=== PATIENT | female | born 1945 | race Caucasian/White ===

== ENCOUNTER → 2023-06-06 06:43 | Day surgery (SDC) | payer MEDICARE, BC, SELFPAY | LOC: GI 06:43 | PROVIDERS: ATTENDING PHYSICIAN Specialist | DX: Z12.11 Encounter for screening for malignant neoplasm of colon (principal); K57.30 Diverticulosis of large intestine without perforation or abscess without bleeding; K62.1 Rectal polyp; Z86.010 Personal history of colon polyps | CPT/HCPCS: 45380; 88305 ==

== ENCOUNTER → 2023-08-05 08:35 | Outpatient (REF) | payer MEDICARE, BC, SELFPAY ==
[2023-08-05 10:05] LABS: % Basophils 0.5 % (0-2); % Eosinophils 2.4 % (0-6); % Lymphocytes 27.1 % (20.5-51.1); % Monocytes 6.1 % (1.7-9.3); % Neutrophils 62.9 % (42.2-75.2); Absolute Eosinophils 0.2 10^3/uL (0-0.7); Absolute Immature Granulocytes 0.1 10^3/uL (0-0.05); Absolute Lymphocytes 2.2 10^3/uL (1.2-3.4); Absolute Monocytes 0.5 10^3/uL (0.1-0.6); Hematocrit 43.5 % (37.0-47.0); Hemoglobin 15.1 g/dL (12.0-16.0); Mean Corp Hgb Conc. 34.7 g/dL (33.0-37.0); Mean Corpuscular Hgb 30.1 pg (27.0-31.0); Mean Corpuscular Volume 86.8 fL (81.0-99.0); Mean Platelet Volume 10.2 fL (7.4-10.4); Nucleated Red Blood Cells % 0 %; Platelet Count 136 10^3/uL (130-400); Red Blood Cell Count 5.01 10^6/uL (4.20-5.40); White Blood Cell Count 7.9 10^3/uL (4.8-10.8)
[2023-08-05 10:13] LABS: INR 1.04; PT 13.4 Sec (11.4-14.6)
[2023-08-05 10:14] LABS: APTT 27.8 Sec (23.4-35.0)
[2023-08-05 11:37] LABS: Glycohemoglobin (HgbA1c) 5.6 % (4.0-5.6)
[2023-08-05 12:11] LABS: ALT (SGPT) 22 U/L (0-35); AST (SGOT) 24 U/L (14-36); Albumin 4.6 g/dl (3.5-5.0); Alkaline Phosphatase 68 U/L (38-126); Blood Urea Nitrogen 20 mg/dl (7-17); Calcium 9.5 mg/dl (8.4-10.2); Chloride 98 mmol/L (98-107); Glucose 85 mg/dl (70-99); HDL Cholesterol 77 mg/dl; LDL Cholesterol, Calculated 45 mg/dl; Potassium 4.1 mmol/L (3.5-5.1); Sodium 137 mmol/L (135-145); Total Bilirubin 0.9 mg/dl (0.2-1.3); Total Cholesterol 144 mg/dl (50-199); Total Protein 6.9 g/dl (6.3-8.2); Triglyceride 111 mg/dl (10-149); Very Low Density Lipoprotein 22 mg/dl (0-30); eGFR > 60.00
[2023-08-05 12:21] LABS: Carbon Dioxide 29 mmol/L (22-30)
== END ==
LOC: REG 08:35
PROVIDERS: ATTENDING PHYSICIAN Family Medicine
DX: R73.03 Prediabetes (principal); R23.3 Spontaneous ecchymoses; E78.2 Mixed hyperlipidemia
CPT/HCPCS: 36415; 80053; 80061; 83036; 84443; 85025; 85610; 85730

== ENCOUNTER → 2023-09-09 10:03 | Outpatient (REF) | payer MEDICARE, BC, SELFPAY ==
[2023-09-09 11:55] LABS: HDL Cholesterol 75 mg/dl; LDL Cholesterol, Calculated 46 mg/dl; Total Cholesterol 138 mg/dl (50-199); Triglyceride 88 mg/dl (10-149); Very Low Density Lipoprotein 17 mg/dl (0-30)
== END ==
LOC: REG 10:03
PROVIDERS: ATTENDING PHYSICIAN Internal Medicine Cardiovascular Disease
DX: E78.2 Mixed hyperlipidemia (principal); I10 Essential (primary) hypertension
CPT/HCPCS: 36415; 80061

== ENCOUNTER → 2023-09-20 09:14 | Outpatient (REF) | payer MEDICARE, BC, SELFPAY ==
[2023-09-20 10:01] LABS: % Basophils 0.4 % (0-2); % Eosinophils 1.8 % (0-6); % Immature Granulocytes 0.7 % (0-0.5); % Lymphocytes 20.6 % (20.5-51.1); % Monocytes 5.5 % (1.7-9.3); Absolute Eosinophils 0.1 10^3/uL (0-0.7); Absolute Immature Granulocytes 0.1 10^3/uL (0-0.05); Absolute Lymphocytes 1.6 10^3/uL (1.2-3.4); Absolute Monocytes 0.4 10^3/uL (0.1-0.6); Absolute Neutrophils 5.4 10^3/uL (1.4-6.5); Hematocrit 40.6 % (37.0-47.0); Hemoglobin 14.3 g/dL (12.0-16.0); Mean Corp Hgb Conc. 35.2 g/dL (33.0-37.0); Mean Corpuscular Hgb 29.9 pg (27.0-31.0); Mean Corpuscular Volume 84.8 fL (81.0-99.0); Mean Platelet Volume 9.7 fL (7.4-10.4); Nucleated Red Blood Cells % 0 %; Platelet Count 133 10^3/uL (130-400); Red Blood Cell Count 4.79 10^6/uL (4.20-5.40); Red Cell Dist. Width 11.9 % (11.5-14.5); White Blood Cell Count 7.7 10^3/uL (4.8-10.8)
[2023-09-20 10:38] LABS: ALT (SGPT) 24 U/L (0-35); AST (SGOT) 26 U/L (14-36); Albumin 4.4 g/dl (3.5-5.0); Alkaline Phosphatase 60 U/L (38-126); Blood Urea Nitrogen 18 mg/dl (7-17); Calcium 9.3 mg/dl (8.4-10.2); Carbon Dioxide 33 mmol/L (22-30); Chloride 102 mmol/L (98-107); Direct Bilirubin 0.3 mg/dl (0.0-0.4); Glucose 91 mg/dl (70-99); Iron 100 ug/dl (37-170); Potassium 4.6 mmol/L (3.5-5.1); Sodium 139 mmol/L (135-145); Total Bilirubin 0.7 mg/dl (0.2-1.3); Total Protein 6.7 g/dl (6.3-8.2); eGFR > 60.00
[2023-09-20 10:47] LABS: Percent Saturation 32 % (20-50); Total Iron Binding Capacity 304 ug/dl (265-497)
[2023-09-20 10:59] LABS: TSH Reflex To Free T4 1.09 uIU/ml (0.47-4.68)
== END ==
LOC: REG 09:14
PROVIDERS: ATTENDING PHYSICIAN Physician Assistant Medical; FAMILY PHYSICIAN Family Medicine
DX: L29.8 Other pruritus (principal); I10 Essential (primary) hypertension
CPT/HCPCS: 36415; 80053; 82248; 83540; 83550; 84443; 85025

== ENCOUNTER → 2023-11-18 08:31 | Outpatient (REF) | payer MEDICARE, BC, SELFPAY ==
[2023-11-18 11:43] LABS: % Basophils 0.5 % (0-2); % Eosinophils 1.4 % (0-6); % Immature Granulocytes 1.3 % (0-0.5); % Lymphocytes 21.9 % (20.5-51.1); % Monocytes 5.9 % (1.7-9.3); Absolute Eosinophils 0.1 10^3/uL (0-0.7); Absolute Immature Granulocytes 0.1 10^3/uL (0-0.05); Absolute Lymphocytes 1.7 10^3/uL (1.2-3.4); Absolute Monocytes 0.5 10^3/uL (0.1-0.6); Absolute Neutrophils 5.5 10^3/uL (1.4-6.5); Hemoglobin 14.7 g/dL (12.0-16.0); Mean Corpuscular Hgb 29.8 pg (27.0-31.0); Mean Corpuscular Volume 85.2 fL (81.0-99.0); Mean Platelet Volume 10.4 fL (7.4-10.4); Nucleated Red Blood Cells % 0 %; Platelet Count 128 10^3/uL (130-400); Red Blood Cell Count 4.93 10^6/uL (4.20-5.40); Red Cell Dist. Width 11.9 % (11.5-14.5)
== END ==
LOC: REG 08:31
PROVIDERS: ATTENDING PHYSICIAN Internal Medicine Hematology & Oncology; FAMILY PHYSICIAN Nurse Practitioner
DX: R23.3 Spontaneous ecchymoses (principal); R79.9 Abnormal finding of blood chemistry, unspecified; D68.69 Other thrombophilia; D68.00 Von Willebrand disease, unspecified
CPT/HCPCS: 36415; 85025; 85240; 85245; 85246; 85247

== ENCOUNTER → 2023-11-21 09:07 | Outpatient (REF) | payer MEDICARE, BC, SELFPAY | LOC: HWRAD 09:07 | PROVIDERS: ATTENDING PHYSICIAN Internal Medicine Hematology & Oncology; FAMILY PHYSICIAN Nurse Practitioner | DX: R23.3 Spontaneous ecchymoses (principal) | CPT/HCPCS: 76700 ==

== ENCOUNTER → 2023-11-26 17:48 | Outpatient (REF) | payer MEDICARE, BC, SELFPAY | LOC: CLAB 17:48 | PROVIDERS: ATTENDING PHYSICIAN Urology | DX: N39.0 Urinary tract infection, site not specified (principal) | CPT/HCPCS: 87086 ==

== ENCOUNTER → 2023-12-19 08:46 | Outpatient (REF) | payer MEDICARE, BC, SELFPAY ==
[2023-12-19 09:27] LABS: % Basophils 0.5 % (0-2); % Eosinophils 1.9 % (0-6); % Immature Granulocytes 1.6 % (0-0.5); % Lymphocytes 21.9 % (20.5-51.1); % Monocytes 5.2 % (1.7-9.3); % Neutrophils 68.9 % (42.2-75.2); Absolute Eosinophils 0.2 10^3/uL (0-0.7); Absolute Immature Granulocytes 0.1 10^3/uL (0-0.05); Absolute Lymphocytes 1.9 10^3/uL (1.2-3.4); Absolute Monocytes 0.4 10^3/uL (0.1-0.6); Absolute Neutrophils 5.9 10^3/uL (1.4-6.5); Hemoglobin 14.7 g/dL (12.0-16.0); Mean Corpuscular Hgb 29.9 pg (27.0-31.0); Mean Corpuscular Volume 85.5 fL (81.0-99.0); Mean Platelet Volume 9.8 fL (7.4-10.4); Nucleated Red Blood Cells % 0 %; Platelet Count 148 10^3/uL (130-400); Red Blood Cell Count 4.91 10^6/uL (4.20-5.40); Red Cell Dist. Width 12.2 % (11.5-14.5); White Blood Cell Count 8.5 10^3/uL (4.8-10.8)
[2023-12-19 09:30] LABS: Erythrocyte Sed Rate 9 mm/hour (0-20)
[2023-12-19 10:00] LABS: ALT (SGPT) 21 U/L (0-35); AST (SGOT) 23 U/L (14-36); Albumin 4.5 g/dl (3.5-5.0); Alkaline Phosphatase 67 U/L (38-126); Blood Urea Nitrogen 15 mg/dl (7-17); Calcium 9.7 mg/dl (8.4-10.2); Carbon Dioxide 31 mmol/L (22-30); Chloride 101 mmol/L (98-107); Glucose 100 mg/dl (70-99); Potassium 4.1 mmol/L (3.5-5.1); Sodium 141 mmol/L (135-145); Total Bilirubin 0.8 mg/dl (0.2-1.3); Total Protein 6.7 g/dl (6.3-8.2); eGFR > 60.00
[2023-12-19 10:02] LABS: C-Reactive Protein < 5.00 mg/L (0.0-10.00)
[2023-12-21 00:41] LABS: Complement Act., Total (CH50) 90.9 U/mL (38.7-89.9)
[2023-12-21 08:23] LABS: 24 Hour Urine Total Volume Random mL; Urine Collection Length Random hr; Urine Free Kappa Light Chains 5.96 mg/L (0.00-32.90); Urine Free Lambda Light Chains 1.11 mg/L (0.00-3.79)
[2023-12-21 23:39] LABS: Complement C3 119 mg/dl (88-165)
[2023-12-22 00:13] LABS: Albumin 4.34 g/dL (3.75-5.01); Alpha 1 Globulin 0.29 g/dL (0.19-0.46); Alpha 2 Globulin 0.69 g/dL (0.48-1.05); Free Kappa Light Chains,Quant 18.88 mg/L (3.30-19.40); IgA 48 mg/dL (68-408); IgG 840 mg/dL (768-1632); IgM 137 mg/dL (35-263); Immunofixation Electrophoresis IFE Done; Kappa/Lambda Fr Light Ratio 1.39 (0.26-1.65); Total Protein-Electrophoresis 6.8 g/dL (6.3-8.2)
== END ==
LOC: REG 08:46
PROVIDERS: ATTENDING PHYSICIAN Internal Medicine; FAMILY PHYSICIAN Nurse Practitioner
DX: L50.1 Idiopathic urticaria (principal); T78.3XXA Angioneurotic edema, initial encounter
CPT/HCPCS: 36415; 80053; 82784; 83521; 84155; 84156; 84165; 85025; 85652; 86140; 86160; 86162; 86334; 86335

== ENCOUNTER 2024-02-07 16:22 | Emergency (ER) | payer MEDICARE, BC, SELFPAY ==
[2024-02-07 16:23] VITALS: BMI 35.9
[2024-02-07 16:24] VITALS: BP 154/84
--- NOTE | 2024-02-07 16:40 | ED.GENMED ---
History of Present Illness
General
Chief Complaint: Allergic Reaction
Source: patient
Time Seen by Provider: 02/07/24 16:31
History of Present Illness
History of Present Illness:
78yoF with a history of hypertension, asthma, and GERD presenting via EMS for evaluation of an allergic reaction. Patient was outside shopping with her granddaughter when she was stung by a wasp in her left posterior shoulder. About 5 to 10
minutes later, she started to feel strange and had a heaviness in her head. She also felt like her tongue was swelling. She went immediately to urgent care where she was given 50 mg of Benadryl and EMS was called. Patient received 0.3 mg IM
epinephrine en route. She denies any tongue swelling currently. She has chronic dyspnea related to her asthma which she states feels slightly worse. She denies any dysphagia, rash, itchiness, vomiting, diarrhea, abdominal pain. She has never
been stung by a wasp previously.
Past History
Past History
ED Past Medical History: Asthma and GERD
ED Past Surgical History: Appendectomy, Cholecystectomy, Orthopedic and Tonsilectomy
Patient has exhibited threatening behavior?: No
PSI?: No
Social History
Tobacco: Non-smoker
Alcohol: None
Drug: None
Phy Exam
General Physical Exam
General Presentation: well appearing and no apparent distress
General age: appears stated age
General Skin: warm and dry
General Habitus: normal
General Mental: alert
ENT Exam
ENT Exam: normocephalic
Additional ENT: No oropharyngeal swelling
Cardiovascular Exam
Cardiovascular Exam: regular rate/rhythm
Pulmonary Exam
Pulmonary Exam: other (Scant expiratory wheezes. Speaking in full sentences without difficulty. )
[place] Coma Scale
Eye Opening: Spontaneous
Verbal Response: Oriented
Motor Response: Obeys Commands
GCS Total Score: 15
Skin Exam
Skin Exam: normal color, warm/dry, no rash and other (Small wound to L posterior shoulder in location of the wasp sting. No surrounding erythema noted. No urticaria/rash noted. )
Psychiatric Exam
Psychiatric Exam: normal mood/affect
Course
Orders/Labs/Results
Orders:
Orders
02/07/24 16:39
Albuterol Nebs [Ventolin Nebules] 5 mg INH R NOW STA
Dexamethasone Sod Phosphate [Decadron] 10 mg IV NOW STA
Famotidine [Pepcid] 20 mg IV NOW STA
Ipratropium Nebs [Atrovent Nebules] 0.5 mg INH R NOW STA
02/07/24 17:04
Cardiac Monitoring- Treatment ONCE
02/07/24 18:40
Acetaminophen [Tylenol] 650 mg PO NOW STA
Vital Signs
Initial and Last Documented VS:
Initial Vital Signs
Temp Pulse Resp BP Pulse Ox
97.6 F 66 14 154/84 96
02/07/24 16:24 02/07/24 16:24 02/07/24 16:24 02/07/24 16:24 02/07/24 16:24
Last Documented Vital Signs
Temp Pulse Resp BP Pulse Ox
97.6 F 91 23 136/64 99
02/07/24 16:24 02/07/24 20:30 02/07/24 20:30 02/07/24 20:00 02/07/24 20:30
MDM/Problems Addressed
Differential Diagnosis Includes:
78yoF here after being stung by a wasp. Started to feel weird 5-10 minutes later and tongue was reportedly swallowing. Sent from urgent care via EMS. Received epinephrine prehospital. She is minimally symptomatic on arrival. Vital signs are
stable. Exam is reassuring other than scant wheezes. Patient does report a history of chronic bronchitis/asthma. No oropharyngeal swelling or urticaria noted on exam. Differential diagnosis includes but is not limited to: Allergic reaction,
anaphylaxis, localized reaction to bee sting
Initial ED plan: IV Decadron, Pepcid, and DuoNeb ordered. Will observe for several hours.
*Critical Care Note
Total Time (30-74mins, 75-104mins- exclusive of procedures): Not Applicable
Update Note
Update Note:
Patient observed in the emergency department for over 4 hours post epinephrine administration. No signs of recurrent allergic reaction on reassessment. Vitals remained stable. Patient stable for discharge. Supportive care discussed.
Prescription provided for an EpiPen. Advised follow-up with PCP and ED return precautions discussed. She expressed understanding and is agreeable to plan. She was discharged in stable condition.
ED Attending Note
-
Portions of this chart may have been created with voice recognition software.� Occasional wrong word or��sound alike� substitutions may have occurred due to the inherent limitations of voice recognition software.
Discharge Plan
Departure
Patient Disposition: Home (Routine Discharge)
Date of Disposition: 02/07/24
Time of Disposition: 20:35
Patient with high blood pressure during this ER visit?: Yes
Discharge Problem:
Allergic reaction to insect sting
Instructions: Allergic Reaction ED
Prescriptions:
New
epinephrine [EpiPen] 0.3 mg/0.3 mL auto-injector
0.3 mg IM .STAT PRN (Reason: anaphylaxis) Qty: 2 0RF
No Action
meclizine 25 MG tablet
25 mg PO Q8HPRN PRN (Reason: dizziness) Qty: 12 0RF
famotidine 40 mg Tablet
40 mg PO HS
milk thistle 150 mg Capsule
150 mg PO DAILY
lorazepam 2 mg Tablet
2 mg PO ONCE PRN (Reason: flight)
esomeprazole magnesium [Nexium] 40 mg Capsule,Delayed Release(Dr/Ec)
40 mg PO DAILY
zolpidem 5 mg Tablet
5 mg PO HS
loratadine [Claritin] 10 mg Tablet
10 mg PO DAILY PRN (Reason: allergies)
escitalopram oxalate 20 mg Tablet
20 mg PO DAILY
cholestyramine-aspartame [Cholestyramine Susp Light] 4 gram Powder In Packet
8 g PO DAILY
levalbuterol tartrate [Xopenex HFA] 45 mcg/actuation Hfa Aerosol Inhaler
2 inh INHALATION Q6H PRN (Reason: SOB)
valsartan-hydrochlorothiazide 320-12.5 mg Tablet
1 tab PO DAILY
cholecalciferol (vitamin D3) 50 mcg (2,000 unit) Capsule
50 mcg PO DAILY
Dulera 50-5 mcg/actuation Hfa Aerosol Inhaler
2 puff INHALATION Q12H
Referrals:
Chela White CRNP [Family Provider] -
Activity Restrictions/Additional Instructions:
Take Benadryl 25mg every 6 hours as needed for itching/hives. Administer an EpiPen as needed for trouble breathing/swallowing.
Please follow-up with your family doctor and return to the ER with any worsening symptoms or if you have to use your EpiPen.
Interventions
Interventions:
*Risk Screen - Suicide Last Done: 02/07/24 16:24
*General Assessment Last Done: 02/07/24 16:24
*Neglect/Abuse Screening Last Done: 02/07/24 16:24
*ED COVID-19 Vaccine History Last Done: 02/07/24 16:24
*Nursing Disposition Last Done: 02/07/24 20:41
ED- Cardiac Assessment Last Done: 02/07/24 16:34
ED- Pulmonary Assessment Last Done: 02/07/24 16:34
ED-Skin Assessment Last Done: 02/07/24 16:35
Discharge Date and Time
Discharge Date/Time: 02/07/24 20:49
Print Language: BHUTANESE
[2024-02-07 17:00] VITALS: BP 136/59
[2024-02-07] MEDS: PEPCID 20 MG IV (17:07)
[2024-02-07] MEDS: DECADRON 10 MG IV (17:08)
[2024-02-07] MEDS: VENTOLIN NEBULES 5 MG INH (17:14)
[2024-02-07] MEDS: ATROVENT NEBULES 0.5 MG INH (17:14)
[2024-02-07 18:47] VITALS: BP 136/69
[2024-02-07] MEDS: TYLENOL 650 MG PO (18:52)
[2024-02-07 19:00] VITALS: BP 139/62
[2024-02-07 20:00] VITALS: BP 136/64
== END 2024-02-07 20:49 | disposition home or self-care (01) ==
LOC: EMR 16:22
PROVIDERS: EMERGENCY PHYSICIAN Emergency Medicine; FAMILY PHYSICIAN Nurse Practitioner
DX: T63.481A Toxic effect of venom of other arthropod, accidental (unintentional), initial encounter (principal); R06.00 Dyspnea, unspecified; J45.909 Unspecified asthma, uncomplicated; I10 Essential (primary) hypertension
CPT/HCPCS: 96374; 96375; 94640; 99284

== ENCOUNTER → 2024-02-17 09:11 | Outpatient (REF) | payer MEDICARE, BC, SELFPAY | LOC: RAD 09:11 | PROVIDERS: ATTENDING PHYSICIAN Nurse Practitioner | DX: J06.9 Acute upper respiratory infection, unspecified (principal) | CPT/HCPCS: 71046 ==

== ENCOUNTER 2024-02-17 15:51 | Emergency (ER) | payer MEDICARE, BC, SELFPAY ==
[2024-02-17 15:57] VITALS: BP 132/93
[2024-02-17] MEDS: BENADRYL 50 MG IV (18:34)
[2024-02-17] MEDS: SOLU-CORTEF 200 MG IV (18:34)
[2024-02-17 18:50] LABS: % Basophils 0.6 % (0-2); % Eosinophils 0.2 % (0-6); % Immature Granulocytes 3.3 % (0-0.5); % Lymphocytes 18.8 % (20.5-51.1); % Monocytes 5.2 % (1.7-9.3); % Neutrophils 71.9 % (42.2-75.2); Absolute Basophils 0.1 10^3/uL (0-0.2); Absolute Immature Granulocytes 0.5 10^3/uL (0-0.05); Absolute Lymphocytes 2.6 10^3/uL (1.2-3.4); Absolute Monocytes 0.7 10^3/uL (0.1-0.6); Absolute Neutrophils 9.9 10^3/uL (1.4-6.5); Hematocrit 42.3 % (37.0-47.0); Hemoglobin 15.3 g/dL (12.0-16.0); Mean Corp Hgb Conc. 36.2 g/dL (33.0-37.0); Mean Corpuscular Hgb 30.8 pg (27.0-31.0); Mean Corpuscular Volume 85.3 fL (81.0-99.0); Nucleated Red Blood Cells % 0 %; Platelet Count 115 10^3/uL (130-400); Red Blood Cell Count 4.96 10^6/uL (4.20-5.40); Red Cell Dist. Width 11.9 % (11.5-14.5); White Blood Cell Count 13.8 10^3/uL (4.8-10.8)
[2024-02-17 19:04] LABS: APTT 24.4 Sec (23.4-35.0)
[2024-02-17 19:20] LABS: ALT (SGPT) 39 U/L (0-35); AST (SGOT) 22 U/L (14-36); Albumin 4.5 g/dl (3.5-5.0); Alkaline Phosphatase 71 U/L (38-126); Blood Urea Nitrogen 19 mg/dl (7-17); Calcium 9.8 mg/dl (8.4-10.2); Carbon Dioxide 27 mmol/L (22-30); Chloride 99 mmol/L (98-107); Glucose 98 mg/dl (70-99); Potassium 3.4 mmol/L (3.5-5.1); Sodium 139 mmol/L (135-145); Total Bilirubin 0.8 mg/dl (0.2-1.3); Total Protein 6.9 g/dl (6.3-8.2); eGFR > 60.00
--- NOTE | 2024-02-17 20:24 | ED.GENMED ---
History of Present Illness
General
Chief Complaint: Musculo-Skeletal Complaint
Source: patient and family
Exam Limitations: none
Time Seen by Provider: 02/17/24 18:09
Nursing documentation reviewed up to this point in time: agreed with
History of Present Illness
History of Present Illness:
pt is a 78 y/o F with h/o HTN
here with R sided neck pain with pain radiating into her head after she was lying on the floor today around 2pm tryign to stretch her back. she says she has had the pain since but just recently she started having fuzziness in her head. she has a
mild global headache
mild lightheadedness as well
just doesn't feel right in her head
not worst headache of life
no numbness/tingling/weakness in arms or legs
no vision chagnes
no cp, sob
no syncope
no h/o known aneurysm
does have chornic neck/back issues
no recent infectious sypmtoms, ear ache, cough, cold sypmtoms
Past History
Past History
ED Past Medical History: Asthma and GERD
ED Past Surgical History: Appendectomy, Cholecystectomy, Orthopedic and Tonsilectomy
Patient has exhibited threatening behavior?: No
PSI?: No
Social History
Tobacco: Non-smoker
Alcohol: None
Drug: None
Review of Systems
Review of Systems
Allergies reviewed?: Yes
All Other Systems: Not applicable
Phy Exam
Physical Exam
Physical Exam:
GENERAL: Alert , in no apparent distress, mildly anxious
EYE: pupils equal and reactive
NECK: Supple
mild tenderness R trap and right paraspinal muscles
able to rotate neck
no midline cervical tenderness;
ENT: o/p clr, mmm. TMs normal
CARDIAC: Regular rate and rhythm .
LUNGS: Clear breath sounds bilaterally, no acute respiratory distress, no wheezes/rales/rhonchi
ABDOMEN: Soft, without focal tenderness, no r/g, no cvat, normal bowel sounds
NEUROLOGICAL: Alert and oriented, no focal neuro deficits, cn intact, strength and sensation intact, normal finger to nose
SKIN: Warm and dry, skin intact.
MUSCULOSKELETAL: No edema, well perfused. neg nellie's sign
PSYCH: Normal and appropriate interaction.
Course
Orders/Labs/Results
Orders:
Orders
02/17/24 18:25
CT Head & Neck Angio W/wo IV Urgent
Comment:
Reason For Exam: R neck pain sudden, with fuzziness head, off radha
Diphenhydramine [Benadryl] 50 mg IV NOW STA
Hydrocortisone Sod Succinate [Solu-Cortef] 200 mg IV NOW STA
02/17/24 18:42
Complete Blood Count/With Diff Urgent
Comprehensive Metabolic Panel Urgent
PTT Urgent
Prothrombin Time Urgent
02/17/24 21:20
Diphenhydramine [Benadryl] 12.5 mg IV NOW STA
Ketorolac [Toradol] 15 mg IV NOW STA
Abnormal Lab Results
02/17/24
18:42
WBC 13.8 H 10^3/uL
(4.8-10.8)
Plt Count 115 L 10^3/uL
(130-400)
Abs Immat Gran (auto) 0.5 H 10^3/uL
(0-0.05)
Absolute Neuts (auto) 9.9 H 10^3/uL
(1.4-6.5)
Absolute Monos (auto) 0.7 H 10^3/uL
(0.1-0.6)
Immature Gran % 3.3 H %
(0-0.5)
Lymphocytes % 18.8 L %
(20.5-51.1)
Potassium 3.4 L mmol/L
(3.5-5.1)
BUN 19 H mg/dl
(7-17)
ALT 39 H U/L
(0-35)
02/17/24 18:42
02/17/24 18:42
Vital Signs
Initial and Last Documented VS:
Initial Vital Signs
Temp Pulse Resp BP Pulse Ox
98.5 F 75 18 132/93 98
02/17/24 15:57 02/17/24 15:57 02/17/24 15:57 02/17/24 15:57 02/17/24 15:57
Last Documented Vital Signs
Temp Pulse Resp BP Pulse Ox
98.5 F 61 18 136/77 95
02/17/24 15:57 02/17/24 21:12 02/17/24 21:12 02/17/24 21:12 02/17/24 21:12
MDM/Problems Addressed
Differential Diagnosis Includes:
cervical strain, muscle spasm, dissection, aneurysm
MDM/Problems Addressed:
78 y/o F
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
was stretchign and felt something in her R neck followed by fuzzy feeling in her head/lighthehadedness
no vision changes, weakness, numbness, facial droop, cp, sob
no fever/infectious yspmtoms
nothing tried for pain
on exa pt is slightly anxious
mild tendernes s paraspinal muscles R side
able to flex/extend neck
some pain with rotation laterallly
neuro intact
no double vision
appreciate mild leukocytsis, pt has left shift
there is no infectiou syspmtoms, no fever
she has had normal wbc before
this could be acute phase reactant
she doesn't examine like meningitis
pt has also slightly low plt count 115
her cta is neg
after ct pt reported feelnig warm all over and funny; which could just be side effect from the contrast vs very mild raection
Her throat is normal, voice normal and her lungs are clear. Her vitals are stable. She looks very well. She will be given an extra dose of Benadryl 12.5 mg. I also gave her a dose of Toradol IV for her pain and will discharge her with a short
course of muscle relaxer and Tylenol.
She will require follow-up with her family doctor regarding her leukocytosis
pt feels well to go home
*Critical Care Note
Total Time (30-74mins, 75-104mins- exclusive of procedures): Not Applicable
ED Attending Note
-
Portions of this chart may have been created with voice recognition software.� Occasional wrong word or��sound alike� substitutions may have occurred due to the inherent limitations of voice recognition software.
Discharge Plan
Departure
Patient Disposition: Home (Routine Discharge)
Date of Disposition: 02/17/24
Time of Disposition: 21:34
Patient with high blood pressure during this ER visit?: No
Condition: Fair
Covid-19: Not Applicable
Discharge Problem:
Cervical paraspinal muscle spasm
Instructions: Neck Sprain (DC)
Prescriptions:
No Action
meclizine 25 MG tablet
25 mg PO Q8HPRN PRN (Reason: dizziness) Qty: 12 0RF
famotidine 40 mg Tablet
40 mg PO HS
milk thistle 150 mg Capsule
150 mg PO DAILY
lorazepam 2 mg Tablet
2 mg PO ONCE PRN (Reason: flight)
esomeprazole magnesium [Nexium] 40 mg Capsule,Delayed Release(Dr/Ec)
40 mg PO DAILY
zolpidem 5 mg Tablet
5 mg PO HS
loratadine [Claritin] 10 mg Tablet
10 mg PO DAILY PRN (Reason: allergies)
escitalopram oxalate 20 mg Tablet
20 mg PO DAILY
cholestyramine-aspartame [Cholestyramine Susp Light] 4 gram Powder In Packet
8 g PO DAILY
levalbuterol tartrate [Xopenex HFA] 45 mcg/actuation Hfa Aerosol Inhaler
2 inh INHALATION Q6H PRN (Reason: SOB)
valsartan-hydrochlorothiazide 320-12.5 mg Tablet
1 tab PO DAILY
cholecalciferol (vitamin D3) 50 mcg (2,000 unit) Capsule
50 mcg PO DAILY
Dulera 50-5 mcg/actuation Hfa Aerosol Inhaler
2 puff INHALATION Q12H
epinephrine [EpiPen] 0.3 mg/0.3 mL auto-injector
0.3 mg IM .STAT PRN (Reason: anaphylaxis) Qty: 2 0RF
Referrals:
Chela White CRNP [Family Provider] - Follow up in 2-3 days
Activity Restrictions/Additional Instructions:
TAKE TYLENOL 3 TIMES A DAY FOR PAIN NEEDED
TRY IBURPFOEN 400 MG TWICE A DAY WITH FOOD FOR 3-5 DAYS
USE A COMBINATION OF ALTERNATING HEAT AND ICE
FOLLOW UP WITH YOUR FAMILY DOCTOR
RETURN FOR: SEVERE PAIN, PASSING OUT, FEVER, VISION CHANGES, TROUBLE BREATHING, WEAKNESS/NUMBNESS IN ARMS OR LEGS, OR ANYCONCERNS.
Interventions
Interventions:
*Risk Screen - Suicide Last Done: 02/17/24 15:57
*General Assessment Last Done: 02/17/24 15:57
*Neglect/Abuse Screening Last Done: 02/17/24 15:57
ED- Fall Risk Assessment Last Done: 02/17/24 17:02
*ED COVID-19 Vaccine History Last Done: 02/17/24 15:57
*Nursing Disposition Last Done: 02/17/24 21:49
ED-Musculoskeletal Assessment Last Done: 02/17/24 17:02
Discharge Date and Time
Discharge Date/Time: 02/17/24 21:50
Print Language: TRISTANIAN
[2024-02-17 21:12] VITALS: BP 136/77
[2024-02-17] MEDS: BENADRYL 12.5 MG IV (21:27)
[2024-02-17] MEDS: TORADOL 15 MG IV (21:28)
== END 2024-02-17 21:50 | disposition home or self-care (01) ==
LOC: EMR 15:51
PROVIDERS: Physician Assistant; EMERGENCY PHYSICIAN Emergency Medicine; FAMILY PHYSICIAN Nurse Practitioner
DX: M62.838 Other muscle spasm (principal); I10 Essential (primary) hypertension
CPT/HCPCS: 99285; 96374; 96375 ×2; 96376; 70496; 70498; 80053; 85025; 85610; 85730; Q9967

== ENCOUNTER 2024-02-19 20:18 | Emergency (ER) | payer MEDICARE, BC, SELFPAY ==
[2024-02-19 20:25] VITALS: BP 120/67
[2024-02-19 21:07] VITALS: BP 120/69
[2024-02-19 21:09] VITALS: BMI 30.5
[2024-02-19 22:00] VITALS: BP 121/73
[2024-02-19 22:43] VITALS: BP 142/67
[2024-02-19 23:00] VITALS: BP 136/55
[2024-02-20] VITALS: BP 128/66
--- NOTE | 2024-02-20 00:32 | ED.GENMED ---
History of Present Illness
General
Chief Complaint: Numbness
Source: patient and family
Exam Limitations: none
Time Seen by Provider: 02/20/24 00:26
Nursing documentation reviewed up to this point in time: agreed with
History of Present Illness
History of Present Illness:
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
scapular pain. Patient was notably seen in this emergency room for similar symptoms 02/17/2024�she had onset of pain in the right neck/shoulder and tingling in the right arm while she was stretching. At that time she had a CTA of her head and neck
which showed arthritis but no vascular injury and she was treated symptomatically. Patient says that symptoms have been constant since then and she feels generally worsening specifically worsening today when she was reaching for something in the
kitchen. She reports a sharp pinching pain in the right scapula that radiates towards the right side of her neck and occasionally down her right arm. She reports sensation of paresthesias in the right arm as well. She says that occasionally the
pain gets so bad that it radiates down towards the right leg. It is consistently reproducible with movement�specifically flexing her neck and shoulders forward or raising her right arm above her head. No clear relieving factors�she has been
treating symptomatically with Tylenol. She denies any associated headache today although she did have headache previously. She also had some dizziness previously, denies dizziness at present but says that when the symptoms get severe she will
sometimes get dizziness. She denies any chest pain or shortness of breath. She has had recent cough�she says that she is being treated for 'bronchiolitis' by her PCP and has been on amoxicillin and a steroid pack for the past few days. Denies any
fevers or chills. She denies any abdominal pain, nausea, vomiting. She is notably status post cholecystectomy. She denies any other complaints.
Past History
Past History
ED Past Medical History: Asthma and GERD
ED Past Surgical History: Appendectomy, Cholecystectomy, Orthopedic and Tonsilectomy
Patient has exhibited threatening behavior?: No
PSI?: No
Social History
Tobacco: Non-smoker
Alcohol: None
Drug: None
Review of Systems
Review of Systems
All Other Systems: ROS reviewed and negative except as documented in HPI and ROS
Constitutional: Denies fever or chills
EENT: Denies sore throat
Respiratory: Reports cough; Denies trouble breathing
Cardiac: Denies chest pain or palpitations
ABD/GI: Denies abdominal pain, nausea or vomiting
: Denies flank pain
Musculoskeletal: Reports neck pain and other (Scapular pain); Denies back pain
Neurological: Reports dizzy and other (Paresthesias); Denies headache or weakness
Phy Exam
Physical Exam
Physical Exam:
General: Awake, alert, oriented x3; no acute distress
Head: Normocephalic, atraumatic
Eyes: Conjunctiva normal, EOMI, pupils equal round and reactive to light bilaterally
Throat: Airway intact, handling secretions
Neck: Trachea midline, supple without meningismus, mild right paraspinal tenderness but no midline cervical tenderness and good range of motion in the neck�pain is reproduced in the scapula/right neck with forward flexion
Lungs: Clear to auscultation bilaterally, no wheezing, rales, rhonchi
Heart: Regular rate and rhythm, no murmurs, gallops, or rubs
Abd: Soft, non distended, nontender to deep palpation
Neuro: Cranial nerves intact 2 through 12, speech fluid no dysarthria or aphasia, motor and sensory function intact and symmetric upper and lower extremities both proximally and distally
Skin: no rash to suggest shingles
Extremities: No edema in extremities, equal pulses in all extremities�specifically strong right radial pulse; she has some mild tenderness superior margin of the right scapula and along the upper trapezius and the right shoulder, no tenderness along
the humeral head or clavicle or in the right arm; she has reproducible pain in the scapula with active flexion of the shoulder and abduction of the shoulder
Scores
Heart Failure Risk
Heart Failure Risk Score: Not Applicable
Heart Score for Chest Pain Patients
STEMI patient?: Not applicable
Withdrawal Assessment of Alcohol
Withdrawal Assessment Completed?: Not applicable
Course
Orders/Labs/Results
Orders:
Orders
02/20/24 00:30
Electrocardiogram (*1) Urgent
Reason for Study: Other
Other Reason for Exam: shoulder pain
EKG- Treatment ONCE
CR Chest - 2 Views Urgent
Comment:
Reason For Exam: right scapular pain
CR Shoulder - Right Min 2 View Urgent
Comment:
Reason For Exam: right scapular pain
02/20/24 00:41
Ketorolac [Toradol] 15 mg IV NOW STA
02/20/24 00:51
Complete Blood Count/With Diff Urgent
Comprehensive Metabolic Panel Urgent
D-Dimer Urgent
Troponin I Urgent
Abnormal Lab Results
02/20/24
00:51
WBC 15.3 H 10^3/uL
(4.8-10.8)
Plt Count 109 L 10^3/uL
(130-400)
Abs Immat Gran (auto) 0.3 H 10^3/uL
(0-0.05)
Absolute Neuts (auto) 11.9 H 10^3/uL
(1.4-6.5)
Absolute Monos (auto) 0.9 H 10^3/uL
(0.1-0.6)
Immature Gran % 1.8 H %
(0-0.5)
Neutrophils % 77.6 H %
(42.2-75.2)
Lymphocytes % 14.8 L %
(20.5-51.1)
BUN 29 H mg/dl
(7-17)
Glucose 103 H mg/dl
(70-99)
02/20/24 00:51
02/20/24 00:51
Vital Signs
Initial and Last Documented VS:
Initial Vital Signs
Temp Pulse Resp BP Pulse Ox
37.1 C 73 18 120/67 94
02/19/24 20:25 02/19/24 20:25 02/19/24 20:25 02/19/24 20:25 02/19/24 20:25
Last Documented Vital Signs
Temp Pulse Resp BP Pulse Ox
37.1 C 63 16 131/81 98
02/19/24 20:25 02/20/24 01:00 02/20/24 01:00 02/20/24 01:00 02/20/24 01:00
MDM/Problems Addressed
Differential Diagnosis Includes:
Radiculopathy/pinched nerve, muscular strains/tear, rib fracture, pneumothorax, PE, pneumonia; vascular injury of the head and neck ruled out on CTA 2 days ago
MDM/Problems Addressed:
78-year-old female presents to the emergency room for right sided scapular and neck pain; this really started a few days ago and was seen initially in the ER and had evaluation including CTA that was unremarkable. Symptoms have increased since then
and are consistently reproducible and rather intense. Vitals and exam as above. Will extend workup�place IV send labs including a CBC and a CMP, D-dimer, EKG and troponin. Check chest x-ray and x-ray of the right shoulder. Will treat
symptomatically. Reassess after the above.
Labs reviewed: CBC shows leukocytosis to 15 likely related to recent steroids. CMP no clinically significant abnormalities. Troponin undetectable. D-dimer negative. Chest x-ray and shoulder x-ray reviewed by [facility] pathology. Vitals have
been stable. On clinical reassessment patient had significant pain improvement with Toradol. Her symptoms seem consistent with cervical radiculopathy/pinched nerve. I had a long discussion with the patient and her daughter�given that it is her
second visit I did offer her admission to the hospital. She feels that her symptoms are well-controlled enough that she can be discharged although she is concerned that she will have breakthrough pain at home. Will prescribe some pain control
measures. She already has an appointment with orthopedics for evaluation in 2 weeks to be seen for this issue. Encouraged her to keep this appointment. I spoke to her at length about red flag symptoms and return precautions and she feels very
comfortable with these. All questions answered.
Chronic conditions affecting care:
Arthritis
Acute Exacerbation and/or Progression of Chronic Illness:
Acutely hypertensive
Acute Exacerbation and/or Progression of Chronic Illness: HTN
*Radiology
Radiology exam reviewed: preliminary read by ED provider
*Pulse Oximetry
Patient hypoxic: no
*Critical Care Note
Total Time (30-74mins, 75-104mins- exclusive of procedures): Not Applicable
Data Reviewed
Review of Other/Old Records Reveals: Labs, Records and Radiology Studies
Source: patient and family
Patient Management
Escalation/DeEscalation of care consider admission/obs:
Considered admission given second visit but after discussion with patient and daughter and using shared decision making opted for discharge
ED Attending Note
-
Portions of this chart may have been created with voice recognition software.� Occasional wrong word or��sound alike� substitutions may have occurred due to the inherent limitations of voice recognition software.
Discharge Plan
Departure
Patient Disposition: Home (Routine Discharge)
Date of Disposition: 02/20/24
Time of Disposition: 03:05
Patient with high blood pressure during this ER visit?: No
Discharge Problem:
Neck pain, Shoulder pain
Instructions: Radiculopathy of the neck and back (including sciatica)
Prescriptions:
New
gabapentin 100 mg capsule
100 mg PO TID PRN (Reason: pain) Qty: 20 0RF
No Action
meclizine 25 MG tablet
25 mg PO Q8HPRN PRN (Reason: dizziness) Qty: 12 0RF
famotidine 40 mg Tablet
40 mg PO HS
milk thistle 150 mg Capsule
150 mg PO DAILY
lorazepam 2 mg Tablet
2 mg PO ONCE PRN (Reason: flight)
esomeprazole magnesium [Nexium] 40 mg Capsule,Delayed Release(Dr/Ec)
40 mg PO DAILY
zolpidem 5 mg Tablet
5 mg PO HS
loratadine [Claritin] 10 mg Tablet
10 mg PO DAILY PRN (Reason: allergies)
escitalopram oxalate 20 mg Tablet
20 mg PO DAILY
cholestyramine-aspartame [Cholestyramine Susp Light] 4 gram Powder In Packet
8 g PO DAILY
levalbuterol tartrate [Xopenex HFA] 45 mcg/actuation Hfa Aerosol Inhaler
2 inh INHALATION Q6H PRN (Reason: SOB)
valsartan-hydrochlorothiazide 320-12.5 mg Tablet
1 tab PO DAILY
cholecalciferol (vitamin D3) 50 mcg (2,000 unit) Capsule
50 mcg PO DAILY
Dulera 50-5 mcg/actuation Hfa Aerosol Inhaler
2 puff INHALATION Q12H
epinephrine [EpiPen] 0.3 mg/0.3 mL auto-injector
0.3 mg IM .STAT PRN (Reason: anaphylaxis) Qty: 2 0RF
Referrals:
Chela White CRNP [Family Provider] - Follow up in 2-3 days
Activity Restrictions/Additional Instructions:
You were seen in the emergency room for right sided neck and shoulder pain and tingling in your right arm. We think that your symptoms are from a pinched nerve in your neck. You had lab work and x-rays here to rule out other causes of your pain.
There were some incidental findings on your lab work including a slightly elevated white blood cell count and a slightly low platelet count; some of these could likely be explained by your recent steroid pack that you started however you should
follow-up with your primary doctor to have these rechecked.
We gave you some medicine here and it seemed to help with your pain. I recommend that you take the following medications at least for the next week to try and keep your pain under control.
Tylenol (acetaminophen): 1,000 mg every 6 hours
Motrin (ibuprofen): 600 mg every 6 hours
Gabapentin: 100 mg every 8 hours as needed
You should keep your appointment with a specialist to have further treatment for this issue. We did talk about red flag symptoms and things to return for; you should return immediately to the emergency room if you have weakness in your arm,
worsening pain or pain that you cannot control with the above medications. You should also immediately return if you experience any unusual neurologic symptoms like we discussed including speech or vision troubles, weakness or numbness in your
other extremities.
If you have any issues or questions, I am working 9AM-6PM on Friday and you can call [phone] to speak with me. You can call the ED any other time and ask to speak with one of the doctors to ask about your visit today.
Thank you for visiting the Emergency Department at [facility].
1. Please schedule a follow up appointment as directed. Call first thing tomorrow morning to make an appointment.
2. If indicated, please take your medications as instructed and indicated on discharge paperwork.
3. If any of your symptoms do not improve, or persist, or become more severe within 6-12 hours, please return to the emergency department for further care.
4. Please return to the emergency department if you develop a headache, neck pain/stiffness, fever greater than 100.4F, chest pain, shortness of breath, persistent nausea, vomiting, slurred speech, difficulty walking, numbness/tingling, weakness,
signs of infection or any other symptoms that are worrisome to you.
Please call [phone] if you have any questions.
Interventions
Interventions:
*Risk Screen - Suicide Last Done: 02/19/24 20:45
*General Assessment Last Done: 02/19/24 20:45
*Neglect/Abuse Screening Last Done: 02/19/24 20:45
*ED COVID-19 Vaccine History Last Done: 02/19/24 20:45
ED- Neurological Assessment Last Done: 02/19/24 21:09
Discharge Date and Time
Print Language: GREEK
[2024-02-20 01:00] VITALS: BP 131/81
[2024-02-20 01:00] LABS: % Basophils 0.2 % (0-2); % Eosinophils 0.1 % (0-6); % Immature Granulocytes 1.8 % (0-0.5); % Lymphocytes 14.8 % (20.5-51.1); % Monocytes 5.5 % (1.7-9.3); % Neutrophils 77.6 % (42.2-75.2); Absolute Immature Granulocytes 0.3 10^3/uL (0-0.05); Absolute Lymphocytes 2.3 10^3/uL (1.2-3.4); Absolute Monocytes 0.9 10^3/uL (0.1-0.6); Absolute Neutrophils 11.9 10^3/uL (1.4-6.5); Hematocrit 41.7 % (37.0-47.0); Hemoglobin 14.8 g/dL (12.0-16.0); Mean Corp Hgb Conc. 35.5 g/dL (33.0-37.0); Mean Corpuscular Hgb 29.8 pg (27.0-31.0); Mean Corpuscular Volume 83.9 fL (81.0-99.0); Mean Platelet Volume 10.2 fL (7.4-10.4); Nucleated Red Blood Cells % 0 %; Platelet Count 109 10^3/uL (130-400); Red Blood Cell Count 4.97 10^6/uL (4.20-5.40); Red Cell Dist. Width 12.1 % (11.5-14.5); White Blood Cell Count 15.3 10^3/uL (4.8-10.8)
[2024-02-20] MEDS: TORADOL 15 MG IV (01:00)
[2024-02-20 01:13] LABS: D-Dimer 0.31 ug/mlFEU (0.00-0.50)
[2024-02-20 01:14] LABS: ALT (SGPT) 34 U/L (0-35); AST (SGOT) 25 U/L (14-36); Albumin 4.3 g/dl (3.5-5.0); Alkaline Phosphatase 68 U/L (38-126); Blood Urea Nitrogen 29 mg/dl (7-17); Calcium 9.9 mg/dl (8.4-10.2); Carbon Dioxide 30 mmol/L (22-30); Chloride 99 mmol/L (98-107); Estimated Creatinine Clearance 59 ml/min; Glucose 103 mg/dl (70-99); Potassium 3.9 mmol/L (3.5-5.1); Sodium 137 mmol/L (135-145); Total Bilirubin 0.8 mg/dl (0.2-1.3); Total Protein 6.6 g/dl (6.3-8.2); eGFR > 60.00
[2024-02-20 01:37] LABS: Troponin I < 0.012 ng/ml
== END 2024-02-20 03:38 | disposition home or self-care (01) ==
LOC: EMR 20:18
PROVIDERS: EMERGENCY PHYSICIAN Emergency Medicine; FAMILY PHYSICIAN Nurse Practitioner
DX: M54.2 Cervicalgia (principal); M25.511 Pain in right shoulder; I10 Essential (primary) hypertension; K21.9 Gastro-esophageal reflux disease without esophagitis; K58.9 Irritable bowel syndrome, unspecified
CPT/HCPCS: 99285; 96374; 71046; 73030; 80053; 84484; 85025; 85379; 93005

== ENCOUNTER 2024-02-23 09:38 | Inpatient (IN) | payer MEDICARE, BC, SELFPAY ==
[2024-02-20 16:40] VITALS: BMI 30.5
[2024-02-20 16:44] VITALS: BP 137/90
[2024-02-20 17:08] LABS: % Basophils 0.2 % (0-2); % Eosinophils 0.1 % (0-6); % Immature Granulocytes 2.3 % (0-0.5); % Lymphocytes 10.2 % (20.5-51.1); % Monocytes 4.6 % (1.7-9.3); % Neutrophils 82.6 % (42.2-75.2); Absolute Immature Granulocytes 0.3 10^3/uL (0-0.05); Absolute Lymphocytes 1.5 10^3/uL (1.2-3.4); Absolute Monocytes 0.7 10^3/uL (0.1-0.6); Absolute Neutrophils 12.1 10^3/uL (1.4-6.5); Hematocrit 43.5 % (37.0-47.0); Hemoglobin 15.5 g/dL (12.0-16.0); Mean Corp Hgb Conc. 35.6 g/dL (33.0-37.0); Mean Corpuscular Hgb 29.6 pg (27.0-31.0); Mean Platelet Volume 10.4 fL (7.4-10.4); Nucleated Red Blood Cells % 0 %; Platelet Count 126 10^3/uL (130-400); Red Blood Cell Count 5.24 10^6/uL (4.20-5.40); Red Cell Dist. Width 11.9 % (11.5-14.5); White Blood Cell Count 14.7 10^3/uL (4.8-10.8)
[2024-02-20 17:14] LABS: ALT (SGPT) 35 U/L (0-35); AST (SGOT) 28 U/L (14-36); Albumin 4.8 g/dl (3.5-5.0); Alkaline Phosphatase 75 U/L (38-126); Blood Urea Nitrogen 29 mg/dl (7-17); Calcium 9.9 mg/dl (8.4-10.2); Carbon Dioxide 24 mmol/L (22-30); Chloride 99 mmol/L (98-107); Glucose 127 mg/dl (70-99); Potassium 3.3 mmol/L (3.5-5.1); Sodium 137 mmol/L (135-145); Total Bilirubin 1.3 mg/dl (0.2-1.3); Total Protein 7.2 g/dl (6.3-8.2); eGFR > 60.00
--- NOTE | 2024-02-20 19:19 | ED.GENMED ---
History of Present Illness
General
Chief Complaint: Fainting/Passed Out
Source: patient, records and family
Time Seen by Provider: 02/20/24 18:54
History of Present Illness
History of Present Illness:
This patient is a 78-year-old female presents emergency department, with her third visit in the last 3 to 4 days. She was first seen on around February 16 with complaints of pain in the right neck/scapular area with associated right upper extremity
tingling. This developed while she was stretching. She had an extensive workup here including a CTA to rule out dissection. Workup was essentially unremarkable and patient went home with close instructions. She then returned overnight with
complaints of continued neck discomfort. She had further testing done, was given meds for pain management, and discharged home. Today, she states that she was walking from one area of the room to another just by the sofa and she started to feel
very dizzy. She lowered herself down to the sofa and then slid down to the floor. She never lost consciousness. Her came into the room shortly after and called for help. Patient denies experiencing palpitations, chest pain or pressure,
diaphoresis, new dyspnea, numbness, headache, double vision, change in swallowing, change in speech. She denies extremity weakness. She describes episodes of feeling dizzy described as 'foggy' and a 'kennedy'. The symptoms seem to be very episodic,
and unpredictable. She does not think it specifically related to position or head turning. She indicates the dizziness by holding her hands over her head and moving it in a circular motion when she describes 'foggy'. Of note, patient recently
treated for bronchiolitis with antibiotics and steroids. In the last 48-hour, patient describing multiple episodes of watery nonbloody diarrhea. She denies fever, chills.
Past History
Past History
ED Past Medical History: Asthma, GERD and HTN
ED Past Surgical History: Appendectomy, Cholecystectomy, Orthopedic and Tonsilectomy
Patient has exhibited threatening behavior?: No
PSI?: No
Social History
Tobacco: Non-smoker
Alcohol: None
Drug: None
Personal:
Living: with family
Phy Exam
Physical Exam
Physical Exam:
GENERAL: Alert , in no apparent distress
EYE: pupils equal and reactive, no photophobia, EOMI, no nystagmus
NECK: Supple, no significant adenopathy, [place] no without hesitation, no bruit noted, no swelling or skin changes.
ENT: o/p clr, mmm.
CARDIAC: Regular rate and rhythm .
LUNGS: Clear breath sounds bilaterally, no acute respiratory distress, no wheezes/rales/rhonchi
ABDOMEN: Soft, without focal tenderness, no r/g, no cvat
NEUROLOGICAL: Alert and oriented, no focal neuro deficits, [id number] normal, motor 5 out of 5, sensory intact, cranial nerves II through XII intact
SKIN: Warm and dry, skin intact.
MUSCULOSKELETAL: No edema, well perfused.
PSYCH: Normal and appropriate interaction.
Course
Orders/Labs/Results
Orders:
Orders
02/20/24 16:48
Electrocardiogram (*1) Urgent
Reason for Study: Chest Pain
EKG- Treatment ONCE
02/20/24 16:51
Complete Blood Count/With Diff Urgent
Comprehensive Metabolic Panel Urgent
02/20/24 19:24
0.9% Sodium Chloride 500 ml [Nss] 500 ml IV BOLUS
02/20/24 19:26
Potassium Chloride [KCl] 40 meq PO NOW STA
02/20/24 19:33
Troponin I Urgent
02/20/24 21:27
Stool Culture Urgent
TUAN Source: Feces/Stool
Specimen Description:
Date Specimen was Collected: 02/20/24
Time Specimen was Collected: 21:15
02/20/24 21:49
Admit/Transfer Patient As Directed
Co-Sign Provider:
Level of Care: Observation services
Assign to:: Medical/Surgical
Physician / Group: angel
Diagnosis: wasp bite, didarrhea
PRN Pain Medication Management As Directed
May give lesser potent ordered pain med per pt: Yes
preference::
Protocol:: Medication orders for pain may be administered in a
manner that supports deferring to patient preference
when the pt is:
- Requesting an ordered lesser potent pain medication.
Least to most potent pain medications are defined
as: acetaminophen < NSAID < tramadol < opioids
(morphine, oxycodone, hydromorphone).
- Requesting a lesser dose of the same medication IF
ORDERED.
- Requesting a less intrusive route of administration
if both routes are prescribed by the provider (PO <
IV).
02/20/24 21:51
Code Status As Directed
Resuscitation Status: Full Code
02/20/24 21:56
C difficile Antigen & Toxins Urgent
TUAN Source: Feces/Stool
Specimen Description:
Norovirus by PCR Urgent
TUAN Source: Feces/Stool
Specimen Description:
02/21/24 00:03
0.9% Sodium Chloride 1000 ml [Nss] 1,000 ml IV 70 mls/hr
Acetaminophen [Tylenol] 650 mg PO Q4HPRN PRN
Gabapentin [Neurontin] 100 mg PO TID PRN
Levalbuterol Tartrate [Xopenex Hfa 45 Mcg Inhaler] 2 puff INH R Q6HPRN PRN
Lorazepam [Ativan] 2 mg PO ONCE PRN
Meclizine [Antivert] 12.5 mg PO BIDPRN PRN
Ondansetron Injectable [Zofran] 4 mg IV Q6HPRN PRN
Zolpidem Tartrate [Ambien] 10 mg PO HS
02/21/24 00:03
Activity As Directed
Activity Level: As Tolerated
Vital Signs As Directed
Frequency: Per unit guidelines
Xopenex Reason for Use As Directed
Reason for ordering Xopenex instead of Albuterol: tachy
DX Deep Vein Thrombosis Video Routine
02/21/24 06:29
Complete Blood Count/With Diff IN AM
Comprehensive Metabolic Panel IN AM
02/21/24 08:00
Budesonide/Formoterol 80/4.5 [Symbicort 80/4.5 Mcg Inhaler] 2 puff INH R BID
CHOLESTYRAMINE in PETROLATUM [QUESTRAN 4 grams in 100 grams AQUAPHOR] DOSE applic S DAILY
Cholecalciferol (Vitamin D3) [VITAMIN D3 (cholecalciferol)] 50 mcg PO DAILY
Heparin 5,000 units SC Q12
Multivitamin [Theragran] 1 tablet PO DAILY
Sertraline HCl [Zoloft] 50 mg PO DAILY
Valsartan [Diovan] 320 mg PO DAILY
02/21/24 Dinner
Regular
At Your Request: Limited Participation
02/21/24 18:00
Rosuvastatin Calcium [Crestor] 20 mg PO QPM
02/21/24 21:27
C difficile Antigen & Toxins Urgent
TUAN Source: ST
Specimen Description:
Date Specimen was Collected: 02/20/24
Time Specimen was Collected: 21:15
Comment: ADD ON
Norovirus by PCR Urgent
TUAN Source: ST
Specimen Description:
Date Specimen was Collected: 02/20/24
Time Specimen was Collected: 21:15
Comment: ADD ON
Abnormal Lab Results
02/20/24
16:51
WBC 14.7 H 10^3/uL
(4.8-10.8)
Plt Count 126 L 10^3/uL
(130-400)
Abs Immat Gran (auto) 0.3 H 10^3/uL
(0-0.05)
Absolute Neuts (auto) 12.1 H 10^3/uL
(1.4-6.5)
Absolute Monos (auto) 0.7 H 10^3/uL
(0.1-0.6)
Immature Gran % 2.3 H %
(0-0.5)
Neutrophils % 82.6 H %
(42.2-75.2)
Lymphocytes % 10.2 L %
(20.5-51.1)
Potassium 3.3 L mmol/L
(3.5-5.1)
BUN 29 H mg/dl
(7-17)
Glucose 127 H mg/dl
(70-99)
02/20/24 16:51
02/20/24 16:51
Vital Signs
Initial and Last Documented VS:
Initial Vital Signs
Temp Pulse Resp BP Pulse Ox
98.2 F 72 16 137/90 98
02/20/24 16:44 02/20/24 16:44 02/20/24 16:44 02/20/24 16:44 02/20/24 16:44
Last Documented Vital Signs
Temp Pulse Resp BP Pulse Ox
98.3 F 74 18 101/72 97
02/21/24 15:00 02/21/24 15:00 02/21/24 15:00 02/21/24 15:00 02/21/24 15:00
*Critical Care Note
Total Time (30-74mins, 75-104mins- exclusive of procedures): Not Applicable
Update Note
Update Note:
Patient presents to the Emergency Department with __near syncope
Number and Complexity of Problems Addressed at the Encounter
� Chronic conditions affecting care:
� Acute Exacerbation and/or Progression of Chronic Illness:
� Differential Diagnosis includes: But not limited to dehydration, vasovagal events, vertigo, etc. etc.
Amount and/or Complexity of Data to be Reviewed and Analyzed
� I performed an independent evaluation of and my interpretation is:
EKG: Read by me and compared to yesterday's, normal sinus rhythm, normal rate, no acute ischemia
CT:
Xrays:
Laboratory Studies: White blood cell count elevation noted, similar to prior recent visits and likely related to steroids. Mild hypokalemia.
Other:
� Review of other/old records reveals:
� Clinical information was obtained by an independent historian: Daughter and who are at bedside
� Prescriptions/Medications Considered but not given:
� Further testing considered but not performed:
Risk of Complications and/or Morbidity or Mortality of Patient Management
� Social determinants of health affecting care:
� Discussion with other providers (PCP, Hospitalists, Consultants, etc):
� Escalation of care including admission/observation vs risk of discharge considered:
ED Attending Note
-
Portions of this chart may have been created with voice recognition software.� Occasional wrong word or��sound alike� substitutions may have occurred due to the inherent limitations of voice recognition software.
Discharge Plan
Departure
Patient Disposition: Admit
Date of Disposition: 02/20/24
Time of Disposition: 21:17
Admit to: Telemetry
Presentation/result/management discussed w/ accepting MD/DO: Hospitalist
Discharge Problem:
Near syncope
Interventions
Interventions:
*Risk Screen - Suicide Last Done: 02/20/24 16:44
*General Assessment Last Done: 02/20/24 16:44
*Neglect/Abuse Screening Last Done: 02/20/24 16:44
*ED COVID-19 Vaccine History Last Done: 02/21/24 00:17
*Nursing Disposition Last Done: 02/21/24 00:05
ED- Cardiac Assessment Last Done: 02/20/24 19:36
ED- Neurological Assessment Last Done: 02/20/24 19:36
Discharge Date and Time
Discharge Date/Time: 02/21/24 00:05
[2024-02-20 19:26] VITALS: BP 134/79
[2024-02-20] MEDS: NSS 500 IV (19:36)
[2024-02-20] MEDS: KCL 40 MEQ PO (19:41)
[2024-02-20 20:11] LABS: Troponin I < 0.012 ng/ml
[2024-02-20 20:25] VITALS: BP 150/79
[2024-02-20 21:45] VITALS: BP 139/78
--- NOTE | 2024-02-20 21:57 | HPS.HSE ---
Family Physician
-
Family Physician: JULITO Hagen
Chief Complaint
-
brain fog
History of Present Illness
78-year-old female past medical history of hypertension, asthma, GERD, chronic right neck pinched nerve presenting for her third visit in the last 3 to 4 days.
Patient had a wasp bite on the back of her neck 8 days ago. At that time she developed swelling and pain in her left neck. She came to the emergency room for the first time in February 16 was given treatment for anaphylaxis and was discharged. She
was never stung by wasp before.
She came back on February 16 with brain fog, neck pain and a constricting feeling around her head as well as dizziness. She had extensive workup including CTA of the head/neck and chest x-ray which were unremarkable. She was diagnosed with cervical
muscle spasm and discharged.
2 days ago she saw her primary care doctor for cough and was diagnosed with bronchiolitis. She was started on amoxicillin and prednisone. She denies any cough at this time. She denies shortness of breath. She denies chest pain. Since starting
the antibiotic she has had watery diarrhea and has not been eating much. She denies nausea or vomiting.
She continues to have a feeling of brain fog, intermittent dizziness worse when she is walking around. She denies any focal neurological deficits such as numbness or tingling, facial droop or ambulatory dysfunction or vertigo. She denies any yu
headache. Denies double vision or changes in speech.
She has chronic intermittent pain in her right neck due to pinched nerve. Denies any radicular symptoms from this.
She denies smoking or alcohol use.
Medical History
Past Medical History
Past Medical History: Reports Other (hypertension, asthma, GERD, chronic right neck pinched nerve )
Past Surgical History: Reports Other ( Appendectomy, Cholecystectomy, Orthopedic and Tonsilectomy)
Social History
Tobacco: Non-smoker
Alcohol: None
Drug: None
Family History
Family History: Not pertinent
Allergies / Home Medications
Allergies reflects when Allergies were last updated in [facility].
Home Medications with original date entered in [facility]
Allergy/Medication List:
Allergies
Allergy/AdvReac Type Severity Reaction Status Date / Time
codeine Allergy Severe Anaphylaxis Verified 02/20/24 16:44
Iodinated Contrast Media Allergy Severe Anaphylaxis Verified 02/20/24 16:44
[Iodinated Contrast Media -
IV Dye]
Home Medications
cholecalciferol (vitamin D3) 50 mcg (2,000 unit) capsule 50 mcg PO DAILY 11/28/22
cholestyramine-aspartame 4 gram oral powder for susp in a packet 8 g PO DAILY 11/28/22
famotidine 40 mg tablet 40 mg PO HS 11/28/22
levalbuterol tartrate 45 mcg/actuation aerosol inhaler (Xopenex HFA) 2 inh inhalation R Q6HPRN PRN SOB 11/28/22
lorazepam 2 mg tablet 2 mg PO ONCE PRN flight 11/28/22
valsartan 320 mg-hydrochlorothiazide 12.5 mg tablet 1 tab PO DAILY 11/28/22
amoxicillin 500 mg tablet 500 mg PO TID 02/20/24
gabapentin 100 mg capsule 100 mg PO TID PRN pain #20 caps 02/20/24
meclizine 12.5 mg tablet 12.5 mg PO BIDPRN PRN vertigo 02/20/24
methylprednisolone 4 mg tablets in a dose pack 4 mg PO PER PKG DIR 02/20/24
mometasone-formoterol HFA 100 mcg-5 mcg/actuation aerosol inhaler (Dulera) 2 puff inhalation R BID 02/20/24
rosuvastatin 20 mg tablet 20 mg PO QPM 02/20/24
sertraline 50 mg tablet 50 mg PO DAILY 02/20/24
therapeutic multivitamin 1 tab PO DAILY 02/20/24
zolpidem 10 mg tablet 10 mg PO HS 02/20/24
Review of Systems
-
History Source: Patient
A 12 point ROS was completed and negative except as noted: Yes
Constitutional: Reports No Symptoms
EENT: Reports No Symptoms
Respiratory: Reports No Symptoms
Cardiac: Reports No Symptoms
Abdomen/GI: Reports No Symptoms
: Reports No Symptoms
Musculoskeletal: Reports No Symptoms
Skin: Reports No Symptoms
Neurological: Reports See HPI
Endocrine: Reports No Symptoms
Hematologic/Lymphatic: Reports No Symptoms
Psych: Reports No Symptoms
Physical Exam
Vital Signs
Vital Signs
Temp Pulse Resp BP Pulse Ox
98.2 F 61 18 134/79 94
02/20/24 16:44 02/20/24 20:00 02/20/24 20:00 02/20/24 19:26 02/20/24 20:00
Physical Exam
General: Well Developed, Well Nourished and No Apparent Distress
HEENT: NormoCephalic, Moist mucous membranes and Atraumatic
Respiratory: Clear
Cardiac: S1/S2 and Regular Rhythm; No Murmur or Rub
GI: Soft, Non Tender, Non Distended and Normal Bowel Sounds; No Organomegaly
Rectal: Deferred by Provider
Musculoskeletal: No Clubbing, No Cyanosis and No Edema
Skin: No Rash
Neuro: Nonfocal/grossly intact
Laboratory Results
-
02/20/24 16:51
02/20/24 16:51
Laboratory Results
Total Bilirubin 1.3 mg/dl (0.2-1.3) 02/20/24 16:51
AST 28 U/L (14-36) 02/20/24 16:51
ALT 35 U/L (0-35) 02/20/24 16:51
Alkaline Phosphatase 75 U/L (38-126) 02/20/24 16:51
Troponin I < 0.012 ng/ml 02/20/24 19:33
Data Reviewed
-
Lab Data: Labs Reviewed by me
Old Records: Reviewed
Impression/Plan
-
IMPRESSION:
PLAN:
# Brain fog/dizziness after wasp bite
-No focal neurological deficits
-Likely neurological immunologic reaction from wasp bite
-Symptoms improved with IV fluids
-Supportive treatment with Tylenol, Benadryl if needed
-Site of the wasp bite appears clean without any wound or swelling
-Recent CTA head and neck negative
# Watery diarrhea secondary to amoxicillin
-Check stool culture, C. difficile, norovirus
# Hypokalemia secondary to diarrhea
-Potassium repletion
# Recently diagnosed bronchiolitis
-Chest x-ray last night is negative for infection
-Stop amoxicillin
History of cervical disc disease
-Continue gabapentin
Essential hypertension
-Continue valsartan
-Hold hydrochlorothiazide
Asthma
-Continue Xopenex, Dulera
GERD
-Continue Pepcid
Anxiety/depression
-Continue Ativan, sertraline
Hyperlipidemia
-Continue statin
Full code
DVT prophylaxis�heparin
Regular diet
[2024-02-20 22:00] VITALS: BP 123/66
[2024-02-20 23:00] VITALS: BP 114/59
[2024-02-21 00:05] VITALS: BP 137/78; BMI 29.5
[2024-02-21] MEDS: NSS 1000 IV ×2 (00:39→16:00)
[2024-02-21 00:47] VITALS: BMI 29.5
[2024-02-21] MEDS: AMBIEN 10 MG PO ×2 (01:27→21:17)
[2024-02-21] MEDS: ATIVAN 2 MG PO ×2 (01:27→20:12)
[2024-02-21] MEDS: PEPCID 20 MG PO ×2 (01:27→21:13)
--- NOTE | 2024-02-21 04:07 | PTCARENOTE ---
Pt admitted to 330 from ED. Pt ambulated with steady gait. Daughter at bedside with pt. Pt speaks Kyr[place]z but pt daughter states pt has trouble with 'medical terms' Pts daughter states pt has anxiety, denies pain, VSS. Call lindsey within reach.
[2024-02-21 07:00] VITALS: BP 149/67
[2024-02-21 07:24] LABS: % Basophils 0.4 % (0-2); % Eosinophils 0.4 % (0-6); % Immature Granulocytes 1.9 % (0-0.5); % Lymphocytes 22.2 % (20.5-51.1); % Neutrophils 68.1 % (42.2-75.2); Absolute Eosinophils 0.1 10^3/uL (0-0.7); Absolute Immature Granulocytes 0.2 10^3/uL (0-0.05); Absolute Lymphocytes 2.5 10^3/uL (1.2-3.4); Absolute Monocytes 0.8 10^3/uL (0.1-0.6); Absolute Neutrophils 7.6 10^3/uL (1.4-6.5); Hematocrit 40.3 % (37.0-47.0); Hemoglobin 14.4 g/dL (12.0-16.0); Mean Corp Hgb Conc. 35.7 g/dL (33.0-37.0); Mean Corpuscular Volume 86.9 fL (81.0-99.0); Nucleated Red Blood Cells % 0 %; Red Blood Cell Count 4.64 10^6/uL (4.20-5.40); Red Cell Dist. Width 11.9 % (11.5-14.5); White Blood Cell Count 11.1 10^3/uL (4.8-10.8)
[2024-02-21] MEDS: SYMBICORT 80/4.5 MCG INHALER 2 PUFF INH ×2 (07:32→19:45)
[2024-02-21 07:36] LABS: Mean Platelet Volume 10.1 fL (7.4-10.4); Platelet Count 96 10^3/uL (130-400)
[2024-02-21 07:54] LABS: ALT (SGPT) 29 U/L (0-35); AST (SGOT) 23 U/L (14-36); Albumin 3.9 g/dl (3.5-5.0); Alkaline Phosphatase 56 U/L (38-126); Blood Urea Nitrogen 20 mg/dl (7-17); Calcium 9.1 mg/dl (8.4-10.2); Carbon Dioxide 27 mmol/L (22-30); Chloride 104 mmol/L (98-107); Estimated Creatinine Clearance 65 ml/min; Glucose 93 mg/dl (70-99); Potassium 3.9 mmol/L (3.5-5.1); Sodium 139 mmol/L (135-145); Total Bilirubin 1.2 mg/dl (0.2-1.3); Total Protein 6.2 g/dl (6.3-8.2); eGFR > 60.00
[2024-02-21] MEDS: ZOLOFT 50 MG PO (08:51)
[2024-02-21] MEDS: THERAGRAN 1 TABLET PO (08:51)
[2024-02-21] MEDS: VITAMIN D3 (cholecalciferol) 50 MCG PO (08:51)
[2024-02-21] MEDS: DIOVAN 320 MG PO (08:51)
--- NOTE | 2024-02-21 10:52 | W.PN.HOSP.TC ---
Today's Communication/Plan
-
MRI brain
monitor off abx
ortho vitals check
Assessment / Plan
Assessment / Plan
1. Bradyphrenia/mental fogginess
-Per patient started after having yellowjacket hornet bite 8 days back
-Literature reviewed some reported neurological complications including encephalopathy is possible
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
-No clear transmissible pathogen, less likely a pathogen related encephalopathy, ID input requested as well
-Maintain off of antibiotics
2. Dizziness
-Positional in nature and usually when patient standing up
-Reported case report of syncope as well post hornet sting as well
-Check orthostatic vitals
3. Antibiotic use related diarrhea
-Patient was prescribed amoxicillin steroids by primary care physician for suspected bronchitis
-Stool check collected for C. difficile/norovirus
4. Thrombocytopenia
-Reason unclear, no medication explaining this
-Check B12 folate in the morning
5. Hypokalemia
-secondary to diarrhea
-replace PRN
Recently diagnosed bronchiolitis - no pulm complains currently
History of cervical disc disease
Essential hypertension -continue valsartan, hold hydrochlorothiazide
Asthma
GERD
Anxiety/depression -Continue Ativan, sertraline. Will need to hold Ativan if true encephalopathy develops
Hyperlipidemia -Continue statin
Full code
DVT prophylaxis�heparin
Case discussed with ID
Case discussed with family at bedside
Total time spent 54 minutes
Anticipated Discharge: 24 - 48 hours
Subjective/Interval History
-
Date of Service: February 21, 2024
continues to have dizziness/mental foginess
afebrile overnight
Objective Data
-
Labs:
Laboratory Results
02/21/24
06:29
WBC 11.1 H
Hgb 14.4
Hct 40.3
Plt Count 96 L D
Sodium 139
Potassium 3.9
Chloride 104
Carbon Dioxide 27
BUN 20 H
Creatinine 0.8
Glucose 93
Calcium 9.1
Total Bilirubin 1.2
AST 23
ALT 29
Alkaline Phosphatase 56
Vital Signs:
Vital Signs
Temp Pulse Resp BP Pulse Ox
98.2 F 72 16 149/67 99
02/21/24 07:00 02/21/24 07:45 02/21/24 07:45 02/21/24 07:00 02/21/24 07:00
I&O
02/20/24 02/21/24 02/22/24
06:59 06:59 05:59
Intake Total 240 / 240 490 / 490
Balance 240 / 240 490 / 490
Review of Systems
-
Respiratory: Reports No Symptoms
Cardiac: Reports No Symptoms
Abdomen/GI: Reports No Symptoms
Neuro: Reports Dizzy and Lightheadedness; Denies Headache
Physical Exam
-
General: No Apparent Distress and Comfortable
HEENT: Negative Oxygen
Respiratory: Clear to Auscultation
Cardiac: Regular Rhythm and S1/S2; Negative Murmur or Rub
GI: Soft, Nontender, Nondistended and Normal Bowel Sounds
Musculoskeletal: No Edema
Neuro: Awake, Alert, Oriented, No Motor Deficits and Nonfocal/Grossly Intact
Psych: Calm
[2024-02-21 11:57] VITALS: BP 131/70; BP 140/76; BP 143/61; PULSE 70; PULSE 79; PULSE 80
[2024-02-21] MEDS: TYLENOL 650 MG PO ×2 (12:36→18:09)
--- NOTE | 2024-02-21 12:42 | CON.ID ---
Consultation
-
Date/Time Consultation Requested: February 21, 2024 0944
Date/Time Consultation Performed: February 21, 2024 1300
Requesting Provider: Dr. Bg Del Rosario
Performing Provider: Dr. Analisa High
Reason for Consultation: Brain fog
Chief Complaint / Past History
Chief Complaint
Dizziness
History of Present Illness
78-year-old female with asthma, hypertension who presented to the hospital February 18 due to near syncope. She has been doing well until February 06 when she was out shopping with her granddaughter when a yellowjacket hornet stung her over the right
shoulder. She immediately felt shooting burning pain from her shoulder up her neck to the back of her head. She felt unwell. She felt like her tongue was swollen. Her granddaughter took her to the urgent care onsite and she was given Benadryl.
EMS brought her to the ER. She received epinephrine en route. Patient received steroid also. She was observed for about 4 hours and then discharged home. She felt better at home. However about 5 days later, she felt fuzziness inside her head,
pressure in the back of her head, and dizziness. She felt like the was doing her head. She Came back to the ER February 16. She received Benadryl and hydrocortisone. White count was elevated. CT of the head and neck angiogram was unremarkable.
She was discharged to ER. She had follow-up with her PCP. Patient had cough and was diagnosed with bronchiolitis. PCP prescribed amoxicillin and prednisone. Next day patient developed diarrhea. PCP instructed her to stop the amoxicillin
prednisone. Her diarrhea persisted. She had poor p.o. intake. She felt unwell. She felt weak. She felt dizzy and felt like she was going to pass out. She came to the ER February 18. It was 14.7. C. difficile negative. She is being observed
without antibiotic. Patient denies fevers. Positive chills. Positive tingling sensation back of her neck. She does have pinched nerve on the right side of her neck. No sinus congestion or rhinorrhea. No sore throat. No visual changes. No
neck stiffness. No nausea or vomiting. Last diarrhea was this morning. No abdominal pain. No dysuria or flank pain. She is feeling improved. Per daughter at bedside, patient is much more alert and looks better than yesterday. Patient reports
her head fuzziness also has improved. She denies cognitive changes. No tick or mosquito bites. She does not go out walking in the [place] or grassy area.
Past History
Additional Past Medical History:
Asthma
HTN
GERD
Right cervical radiculopathy
Appendectomy
Cholecystectomy
Allergy History:
codeine Allergy (Severe, Verified 02/20/24 16:44)
Anaphylaxis
Iodinated Contrast Media [Iodinated Contrast Media - IV Dye] Allergy (Severe, Verified 02/20/24 16:44)
Anaphylaxis
Medications Reviewed: Yes
Current Antibiotics:
none
Social History
Tobacco: Non-Smoker
Alcohol: None
Drug: None
Personal:
Living: With Family
Family History
Family History: Not Pertinent
Review of Systems
Review of Systems
General: Negative Fever
HEENT: Negative Stiff Neck, Sinus Problems, Headache or Pharyngitis
Cardiovascular: Negative Chest Pain or Dyspnea
Respiratory: Negative Dyspnea
Gasteroenterology: Diarrhea; Negative Nausea or Vomiting
Genital / Urological: Negative Dysuria or Flank Pain
Endocrine: Weakness
Musculoskeletal: Negative Arthralgias
Skin / Hair / Nails: Negative Rash
Neurological: Dizziness
All systems: All other systems were reviewed and were negative
Vital Signs
Temp Pulse Resp BP Pulse Ox
98.2 F 72 16 149/67 99
02/21/24 07:00 02/21/24 07:45 02/21/24 07:45 02/21/24 07:00 02/21/24 07:00
Physical Exam
Physical Exam
Constitutional: No Acute Distress, Comfortable and Non-toxic
Head: Other (No frontal or max or sinus tenderness)
Eyes: No Conjunctival Hemorrhage and Sclera Anicteric
Pharynx: Benign
Cardiovascular: Regular Rate and S1/S2
Pulmonary: Wheezes (mild )
Gastrointestinal: Soft, Non Tender, Non Distended and Normal Bowel Sounds
Extremities: Negative Edema
Skin: Other (pinpoint scab on left shoulder blade)
Neurological: AO x 3; Negative Meningeal Signs
Lab / Diagnostic Study Results
02/21/24 06:29
02/21/24:29
Abs Immat Gran (auto) 0.2 10^3/uL (0-0.05) H 02/21/24:29
Absolute Neuts (auto) 7.6 10^3/uL (1.4-6.5) H 02/21/24:29
Absolute Lymphs (auto) 2.5 10^3/uL (1.2-3.4) 02/21/24:29
Absolute Monos (auto) 0.8 10^3/uL (0.1-0.6) H 02/21/24 06:29
Absolute Basos (auto) 0.0 10^3/uL (0-0.2) 02/21/24 06:29
Immature Gran % 1.9 % (0-0.5) H 02/21/24 06:29
Neutrophils % 68.1 % (42.2-75.2) 02/21/24:
Lymphocytes % 22.2 % (20.5-51.1) 02/21/24 06:
Monocytes % 7.0 % (1.7-9.3) 02/21/24:
Eosinophils % 0.4 % (0-6) 02/21/24:
Basophils % 0.4 % (0-2) 02/21/24:
Microbiology Results
Micro:
02/21/24 21:27 C. difficile GDH Antigen & Toxins - Final
Feces/Stool Negative for toxigenic C.difficile
- Final
Negative for Norovirus GI and GII.
02/20/24 21:27 Salmonella/Shigella Culture - Pending
Feces/Stool Campylobacter Culture - Pending
Shiga Toxin Test - Pending
02/20/24 CXR: No acute pulmonary process identified.
02/21/24 MRI of the brain: No acute intracranial abnormality noted.
Assessment / Plan
# Recent yellow jacket sting systemic reaction
# Abx -associated diarrhea.
- C. diff neg.
- Imodium prn.
# Weakness, pre-syncope, head pressure, head fuzziness
-Brain MRI neg
- Suspect hypovolemia from diarrhea
- Alternatively possible residual reaction to yellow-jacket venom
- No clinical correlation to infectious source
# Leukocytosis from recent steroid
- Trending down
[2024-02-21] MEDS: IMODIUM 2 MG PO (14:35)
[2024-02-21 15:00] VITALS: BP 101/72
[2024-02-21] MEDS: CRESTOR 20 MG PO (17:22)
--- NOTE | 2024-02-21 18:00 | PTCARENOTE ---
pt complaining of new sob. Pulse ox 95% on RA, lungs CTA. MD made aware via TT and fluids D/c per MD. will continue to monitor
[2024-02-21] MEDS: QUESTRAN 8 GRAM PO (18:03)
[2024-02-21 20:00] VITALS: BP 142/73
[2024-02-21 23:00] VITALS: BP 127/55; BP 128/70; BP 134/69; PULSE 69; PULSE 73; PULSE 84
--- NOTE | 2024-02-22 04:53 | W.PN.UPDATE ---
Update Note
Progress Note Update
RN reported patient c/o 'pain in the kidneys' and is requesting UA, voiding without difficulty, no frequency, urgency, no blood in urine, afebrile per RN. will order UA x1, no UA done this admisson
[2024-02-22 05:15] LABS: Hematocrit 39.2 % (37.0-47.0); Hemoglobin 13.9 g/dL (12.0-16.0); Mean Corp Hgb Conc. 35.5 g/dL (33.0-37.0); Mean Corpuscular Hgb 30.1 pg (27.0-31.0); Mean Corpuscular Volume 84.8 fL (81.0-99.0); Platelet Count 92 10^3/uL (130-400); Red Blood Cell Count 4.62 10^6/uL (4.20-5.40); Red Cell Dist. Width 11.9 % (11.5-14.5); White Blood Cell Count 8.8 10^3/uL (4.8-10.8)
[2024-02-22 05:28] LABS: Blood Urea Nitrogen 14 mg/dl (7-17); Calcium 9.2 mg/dl (8.4-10.2); Carbon Dioxide 29 mmol/L (22-30); Chloride 104 mmol/L (98-107); Estimated Creatinine Clearance 74 ml/min; Glucose 97 mg/dl (70-99); Potassium 3.9 mmol/L (3.5-5.1); Sodium 140 mmol/L (135-145); eGFR > 60.00
[2024-02-22 06:00] VITALS: BMI 29.7
[2024-02-22 06:37] LABS: Urine Albumin Negative (Neg - Trace); Urine Bilirubin Negative (Negative); Urine Character Clear (Clear); Urine Color Yellow; Urine Glucose Negative (Negative); Urine Ketone Negative (Negative); Urine Leukocyte Negative (Negative); Urine Nitrite Negative (Negative); Urine Occult Blood Negative (Negative); Urine Urobilinogen Negative (Neg - 1+)
[2024-02-22 07:00] VITALS: BP 118/54
[2024-02-22] MEDS: SYMBICORT 80/4.5 MCG INHALER 2 PUFF INH ×2 (07:31→19:52)
[2024-02-22] MEDS: DIOVAN 320 MG PO (08:06)
[2024-02-22] MEDS: VITAMIN D3 (cholecalciferol) 50 MCG PO (08:10)
[2024-02-22] MEDS: THERAGRAN 1 TABLET PO (08:10)
[2024-02-22] MEDS: ZOLOFT 50 MG PO (08:11)
[2024-02-22] MEDS: QUESTRAN 8 GRAM PO (09:40)
[2024-02-22 12:20] VITALS: BP 125/71; BP 126/71; BP 134/48; PULSE 103; PULSE 78; PULSE 87
[2024-02-22] MEDS: DELTASONE 40 MG PO (13:10)
--- NOTE | 2024-02-22 14:17 | W.PN.HOSP.TC ---
Today's Communication/Plan
-
empiric trial of steroids
pt/ot
discharge planning
Assessment / Plan
Assessment / Plan
1. Bradyphrenia/mental fogginess
Serum sickness?
-Per patient started after having yellow jacket hornet bite 8 days back
-Literature reviewed some reported neurological complications including encephalopathy is possible
-MRI brain neg for acute abnormalities. 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
-ID help appreciated.
-Maintain off of antibiotics
-Patient vas bite was on 06 February, some reported cases of serum sickness causing neurological symptoms as well? Will start on empiric prednisone 40mg.d for short course
-PT/OT evaluation ordered
2. Dizziness
-Positional in nature and usually when patient standing up
-Ortho vitals negative.
3. Antibiotic use related diarrhea
-Patient was prescribed amoxicillin steroids by primary care physician for suspected bronchitis
-Stool studies neg.
4. Thrombocytopenia
-Reason unclear - ITP? , no medication explaining this
-Check B12 folate level
-will require repeat CBC and possible hematology f/u if thrombocytopenia persists.
5. Hypokalemia
-secondary to diarrhea
-replace PRN
Recently diagnosed bronchiolitis - no pulm complains currently
History of cervical disc disease
Essential hypertension -continue valsartan, hold hydrochlorothiazide
Asthma
GERD
Anxiety/depression -Continue Ativan, sertraline. Will need to hold Ativan if true encephalopathy develops
Hyperlipidemia -Continue statin
Full code
DVT prophylaxis�heparin
Anticipated Discharge: Within 24 hours
Subjective/Interval History
-
Date of Service: February 22, 2024
Still feeling off/dizzy
afebrile in night
Objective Data
-
Labs:
Laboratory Results
02/22/24
04:38
WBC 8.8
Hgb 13.9
Hct 39.2
Plt Count 92 L
Sodium 140
Potassium 3.9
Chloride 104
Carbon Dioxide 29
BUN 14
Creatinine 0.7
Glucose 97
Calcium 9.2
Vital Signs:
Vital Signs
Temp Pulse Resp BP Pulse Ox
98.4 F 64 16 118/54 97
02/22/24 07:00 02/22/24 08:06 02/22/24 07:34 02/22/24 08:06 02/22/24 07:34
I&O
02/21/24 02/22/24 02/23/24
07:59 06:59 06:59
Intake Total
Output Total
Balance
Review of Systems
-
Respiratory: Reports No Symptoms
Cardiac: Reports No Symptoms
Abdomen/GI: Reports No Symptoms
Physical Exam
-
General: No Apparent Distress
HEENT: Negative Oxygen
Respiratory: Clear to Auscultation
Cardiac: Regular Rhythm and S1/S2; Negative Murmur
GI: Soft, Nontender and Nondistended
Musculoskeletal: No Clubbing, No Cyanosis and No Edema
Neuro: Awake, Alert, Oriented and No Motor Deficits
[2024-02-22 15:00] VITALS: BP 124/60
[2024-02-22] MEDS: NSS IV (15:15)
[2024-02-22 16:29] LABS: Folate > 20.0 ng/ml (2.76-20); Vitamin B12 597 pg/ml (239-931)
--- NOTE | 2024-02-22 16:35 | CM ---
Reviewed chart, met with patient to obtain information for assessment. Patient's daughter and spouse were at bedside. Patient stated that she lives with her spouse in a one story condo on the second floor with 17 steps to enter and no elevator
access. Family is looking into getting a stair glide. Patient described herself as independent with all of her ADLs, personal care, dressing and bathing. She ambulates independently without device. She is able to do sausage tier, cook, clean and
laundry. She is able to drive and can get to her appointments and does her own shopping.
Patient denied DME in her home.
She has never had VN services.
Patient has not been to a SNF in the past.
Patient was provided with [facility] letter. Patient's daughter stated that she wanted to read it prior to signing. Left [facility]TI on tray table and provided a copy to daughter.
Patient stated that functionally she feels that she is at baseline and would like to return home when mediclaly stable. Patient's spouse confirmed that he will be able to transport home when cleared.
Plan: Case management will continue to follow and assist with discharge planning. Patient would like to return home when cleared.
[2024-02-22] MEDS: CRESTOR 20 MG PO (17:08)
[2024-02-22] MEDS: AMBIEN 10 MG PO (21:08)
[2024-02-22] MEDS: PEPCID 20 MG PO (21:08)
[2024-02-22 23:30] VITALS: BP 125/72; BP 128/77; BP 136/75; PULSE 82; PULSE 84; PULSE 95
[2024-02-23] MEDS: ATIVAN 0.5 MG PO (00:10)
[2024-02-23 00:48] VITALS: BP 125/72; BP 128/77; BP 136/75; PULSE 82; PULSE 84; PULSE 95
[2024-02-23 06:40] LABS: Hematocrit 37.8 % (37.0-47.0); Hemoglobin 13.6 g/dL (12.0-16.0); Mean Corpuscular Hgb 29.8 pg (27.0-31.0); Mean Corpuscular Volume 82.9 fL (81.0-99.0); Mean Platelet Volume 10.4 fL (7.4-10.4); Platelet Count 93 10^3/uL (130-400); Red Blood Cell Count 4.56 10^6/uL (4.20-5.40); Red Cell Dist. Width 11.7 % (11.5-14.5)
[2024-02-23 06:53] LABS: Blood Urea Nitrogen 16 mg/dl (7-17); Calcium 9.6 mg/dl (8.4-10.2); Carbon Dioxide 24 mmol/L (22-30); Chloride 106 mmol/L (98-107); Estimated Creatinine Clearance 74 ml/min; Glucose 111 mg/dl (70-99); Potassium 4.8 mmol/L (3.5-5.1); Sodium 140 mmol/L (135-145); eGFR > 60.00
[2024-02-23 07:35] VITALS: BP 171/72
[2024-02-23] MEDS: SYMBICORT 80/4.5 MCG INHALER 2 PUFF INH (08:20)
[2024-02-23] MEDS: THERAGRAN 1 TABLET PO (08:26)
[2024-02-23] MEDS: DELTASONE 40 MG PO (08:26)
[2024-02-23] MEDS: ZOLOFT 50 MG PO (08:26)
[2024-02-23] MEDS: DIOVAN 320 MG PO (08:26)
[2024-02-23] MEDS: VITAMIN D3 (cholecalciferol) 50 MCG PO (08:26)
[2024-02-23] MEDS: QUESTRAN 8 GRAM PO (08:27)
--- NOTE | 2024-02-23 10:17 | PTOTSP ---
Chart reviewed, spoke with nursing. Therapist spoke with the patient, who noted her brain fog is much improved and has been ambulating independently while hospitalized. Patient denied weakness or issues with balance, anticipates returning home and
will have 's support as needed. Patient denied the need for PT at this time and acknowledged our services are available if needs arise. PT will sign off at this time.
--- NOTE | 2024-02-23 11:17 | CM ---
CM reviewed pt with nursing- plan for dc today
Bedside meeting with pt- no dc needs noted
IMM completed verbally as pt now inpt
Copy provided
Spouse alerted of dc by pt and will transport home
Discharge Disposition- home, no needs, spouse transport
--- NOTE | 2024-02-23 11:31 | W.PN.HOSP.TC ---
Today's Communication/Plan
-
Monitor vital signs
see plan
Continue to monitor platelets, patient will need outpatient blood work with PCP
Discharge on few more days of prednisone
Discharge today
Time of discharge 37 minutes
Assessment / Plan
Assessment / Plan
Bradyphrenia/mental fogginess
Serum sickness?
-Per patient started after having yellow jacket hornet bite 8 days back
-Literature reviewed some reported neurological complications including encephalopathy is possible
-MRI brain neg for acute abnormalities. 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
-ID help appreciated.
-Maintain off of antibiotics
-Patient vas bite was on 06 February, some reported cases of serum sickness causing neurological symptoms as well? Will start on empiric prednisone 40mg.d for short course. Now symptoms improving. Discharge on few more days of prednisone
Patient has been ambulating fine, refusing PT
Dizziness
-Positional in nature and usually when patient standing up
-Ortho vitals negative.
improved
Antibiotic use related diarrhea
-Patient was prescribed amoxicillin steroids by primary care physician for suspected bronchitis
-Stool studies neg.
Thrombocytopenia
-Reason unclear - ITP? , no medication explaining this
-Check B12 folate level >500
-will require repeat CBC and possible hematology f/u if thrombocytopenia persists.
Hypokalemia
-secondary to diarrhea
monitor
Recently diagnosed bronchiolitis - no pulm complains currently
History of cervical disc disease
Essential hypertension -continue valsartan, resume hydrochlorothiazide on dc
Asthma
GERD
Anxiety/depression -Continue Ativan, sertraline. Will need to hold Ativan if true encephalopathy develops
Hyperlipidemia -Continue statin
Full code
DVT prophylaxis�heparin
General: No Apparent Distress
HEENT: Negative Oxygen
Respiratory: Clear to Auscultation
Cardiac: Regular Rhythm and S1/S2; Negative Murmur
GI: Soft, Nontender and Nondistended
Musculoskeletal: No Clubbing, No Cyanosis and No Edema
Neuro: Awake, Alert, Oriented and No Motor Deficits
Anticipated Discharge: Today
Subjective/Interval History
-
Date of Service: February 23, 2024
denies pain
Objective Data
-
Labs:
Laboratory Results
02/23/24
05:49
WBC 11.0 H
Hgb 13.6
Hct 37.8
Plt Count 93 L
Sodium 140
Potassium 4.8
Chloride 106
Carbon Dioxide 24
BUN 16
Creatinine 0.7
Glucose 111 H
Calcium 9.6
Vital Signs:
Vital Signs
Temp Pulse Resp BP Pulse Ox
97.7 F 73 14 171/72 96
02/23/24 07:35 02/23/24 08:27 02/23/24 08:27 02/23/24 07:35 02/23/24 08:27
I&O
02/22/24 02/23/24 02/24/24
06:59 06:59 06:59
Intake Total 1709
Output Total
Balance 1709
--- NOTE | 2024-02-23 11:37 | W.DCSUMMARY ---
Discharge Summary
Discharge Data
Date of Admission: 02/23/24
Date of Discharge: 02/23/24
-
Pending Results: No
Hospital Course
78-year male with past medical history of cervical disc disease, essential hypertension, GERD, asthma, anxiety/depression, hyperlipidemia, bronchiolitis came to the hospital with mental fogginess which was likely thought was secondary to possible
encephalopathy secondary to recent wasp bite. Patient symptoms continue to improve with epinephrine along with steroids. She initially had dizziness which also was improving prior to discharge. She also had some diarrhea which was likely thought
was secondary to recent antibiotic use which over time continue to improve. She also had persistent thrombocytopenia for which she was instructed to follow-up with PCP outpatient for repeat blood test. Once her symptoms continue to improve, she
was then discharged home with instructions to follow-up with all her physicians outpatient.
Discharge Plan
-
Patient Disposition: Home (Routine Discharge)
Discharge Diagnosis/Procedures: Bradyphrenia/mental fogginess likely secondary to wasp bite
Dizziness
Antibiotic related diarrhea
Thrombocytopenia
Diet: As tolerated
Activity: As tolerated
Driving Restrictions: As prior to admission
Bathing Restrictions: None
Blood Work: CBC next week with primary care provider to evaluate thrombocytopenia
Referrals:
Chela White CRNP [Family Provider] - in less than 1 week
Prescriptions:
New
prednisone 20 mg Tablet
40 mg PO DAILY Qty: 2 0RF
famotidine 20 mg Tablet
20 mg PO HS Qty: 7 0RF
cholestyramine (with sugar) 4 gram Powder In Packet
2 ea PO DAILY@0900 Qty: 60 0RF
Continued
famotidine 40 mg Tablet
40 mg PO HS
lorazepam 2 mg Tablet
2 mg PO ONCE PRN (Reason: flight)
Patient Comments:
02/20/2024: last filled 01/07/24, 7 tabs for 7 days
cholestyramine-aspartame 4 gram Powder In Packet
8 g PO DAILY
levalbuterol tartrate [Xopenex HFA] 45 mcg/actuation Hfa Aerosol Inhaler
2 inh INHALATION R Q6HPRN PRN (Reason: SOB)
valsartan-hydrochlorothiazide 320-12.5 mg Tablet
1 tab PO DAILY
cholecalciferol (vitamin D3) 50 mcg (2,000 unit) Capsule
50 mcg PO DAILY
gabapentin 100 mg capsule
100 mg PO TID PRN (Reason: pain) Qty: 20 0RF
meclizine 12.5 mg tablet
12.5 mg PO BIDPRN PRN (Reason: vertigo)
zolpidem 10 mg tablet
10 mg PO HS
Patient Comments:
02/20/2024: last filled 11/24/23, 90 tabs for 90 days
sertraline 50 mg tablet
50 mg PO DAILY
rosuvastatin 20 mg tablet
20 mg PO QPM
Dulera 100-5 mcg/actuation HFA aerosol inhaler
2 puff INHALATION R BID
therapeutic multivitamin Tablet
1 tab PO DAILY
Discontinued
amoxicillin 500 mg tablet
500 mg PO TID
methylprednisolone 4 mg tablets,dose pack
4 mg PO PER PKG DIR
Discharge Orders:
Discharge Patient (As Directed); Ordered 02/23/24
Ordered By: Jm Hughes
Discharge Date and Time
Discharge Date/Time: 02/23/24 13:02
Print Language: DANISH
[2024-02-23 12:19] VITALS: BP 154/86
== END 2024-02-23 13:02 | disposition home or self-care (01) | DRG 393 ==
LOC: 3 WEST ACU 09:38
PROVIDERS: Emergency Medicine; Hospitalist; Nurse Practitioner Gerontology; ADMITTING PHYSICIAN Hospitalist; ATTENDING PHYSICIAN Internal Medicine; CONSULT PHYSICIAN Internal Medicine Infectious Disease; EMERGENCY PHYSICIAN Emergency Medicine; FAMILY PHYSICIAN Nurse Practitioner
DX: K52.1 Toxic gastroenteritis and colitis (principal); G92.8 Other toxic encephalopathy; T63.461A Toxic effect of venom of wasps, accidental (unintentional), initial encounter; I10 Essential (primary) hypertension; J45.909 Unspecified asthma, uncomplicated; K21.9 Gastro-esophageal reflux disease without esophagitis; G58.9 Mononeuropathy, unspecified; E78.5 Hyperlipidemia, unspecified; F32.A Depression, unspecified; F41.9 Anxiety disorder, unspecified; T36.0X5A Adverse effect of penicillins, initial encounter; E87.6 Hypokalemia; R42 Dizziness and giddiness; M50.10 Cervical disc disorder with radiculopathy, unspecified cervical region; D69.6 Thrombocytopenia, unspecified
CPT/HCPCS: 70551; 80048; 80053; 81003; 82607; 82746; 84484; 85025; 85027; 87045; 87046; 87324; 87427; 87449; 87798; 93005; 94640; 96360; 99285

== ENCOUNTER → 2024-02-24 10:40 | Outpatient (REF) | payer MEDICARE, BC, SELFPAY | LOC: RAD 10:40 | PROVIDERS: ATTENDING PHYSICIAN Specialist; FAMILY PHYSICIAN Nurse Practitioner | DX: R19.8 Other specified symptoms and signs involving the digestive system and abdomen (principal) | CPT/HCPCS: 74177; Q9967 ==

== ENCOUNTER 2024-02-26 09:12 | Emergency (ER) | payer MEDICARE, BC, SELFPAY ==
[2024-02-26 09:12] VITALS: BMI 31.6
[2024-02-26 09:26] VITALS: BP 102/61
--- NOTE | 2024-02-26 10:21 | ED.GENMED ---
History of Present Illness
General
Chief Complaint: Numbness
Source: patient, spouse and family
Exam Limitations: none
Time Seen by Provider: 02/26/24 10:00
Nursing documentation reviewed up to this point in time: agreed with
History of Present Illness
History of Present Illness:
78-year-old female with past medical history of anxiety, hypertension asthma chronic low back pain and neck pain presenting to the emergency department for the third time over the past few weeks. She claims at this point since last night she has
noticed some pain again to her neck some tingling to both hands and feet feel that she may have swelling to her throat also had a loose bowel movement. She had similar symptoms over the past few weeks had multiple workups including CT angiogram of
the head and neck which was normal brain MRI which was normal and normal labs on multiple occasions. She was stung by a wasp prior to the onset of symptoms 8 days ago and claims that she has not felt right since. Denies any specific chest pain
shortness of breath vomiting fevers.
Past History
Past History
ED Past Medical History: Asthma, GERD and HTN
ED Past Surgical History: Appendectomy, Cholecystectomy, Orthopedic and Tonsilectomy
Patient has exhibited threatening behavior?: No
PSI?: No
Social History
Tobacco: Non-smoker
Alcohol: None
Drug: None
Personal:
Living: with family
Review of Systems
Review of Systems
Allergies reviewed?: Yes
All Other Systems: ROS reviewed and negative except as documented in HPI and ROS
Phy Exam
Physical Exam
Physical Exam:
GENERAL: Alert , in no apparent distress
EYE: pupils equal and reactive
NECK: Supple, no significant adenopathy.
ENT: o/p clr, mmm.
CARDIAC: Regular rate and rhythm .
LUNGS: Clear breath sounds bilaterally, no acute respiratory distress, no wheezes/rales/rhonchi
ABDOMEN: Soft, without focal tenderness, no r/g, no cvat
NEUROLOGICAL: Alert and oriented, no focal neuro deficits
SKIN: Warm and dry, skin intact.
MUSCULOSKELETAL: No edema, well perfused.
PSYCH: Normal and appropriate interaction.
Course
Orders/Labs/Results
Orders:
Orders
02/26/24 10:11
EKG [Electrocardiogram (*1)] Urgent
Reason for Study: Fatigue / Weakness
Lorazepam [Ativan] 1 mg PO NOW STA
02/26/24 10:12
EKG- Treatment ONCE
02/26/24 10:14
CBC/With Diff [Complete Blood Count/With Diff] Urgent
CMP [Comprehensive Metabolic Panel] Urgent
TSH Reflex To Free T4 Urgent
0.9% Sodium Chloride 500 ml [Nss] 500 ml IV BOLUS
Diphenhydramine [Benadryl] 25 mg IV NOW STA
Ketorolac [Toradol] 15 mg IV NOW STA
Metoclopramide [Reglan] 10 mg IV NOW STA
02/26/24 10:44
Urinalysis Reflex To Culture Urgent
Date Specimen was Collected: 02/26/24
Time Specimen was Collected: 10:30
Urine Microscopic Reflex Cult Urgent
Abnormal Lab Results
02/26/24 02/26/24
10:14 10:44
WBC 13.3 H 10^3/uL
(4.8-10.8)
Abs Immat Gran (auto) 0.3 H 10^3/uL
(0-0.05)
Absolute Neuts (auto) 9.8 H 10^3/uL
(1.4-6.5)
Absolute Monos (auto) 0.9 H 10^3/uL
(0.1-0.6)
Immature Gran % 2.5 H %
(0-0.5)
Lymphocytes % 16.0 L %
(20.5-51.1)
Potassium 3.3 L mmol/L
(3.5-5.1)
BUN 37 H mg/dl
(7-17)
Creatinine 1.2 H mg/dL
(0.6-1.0)
Glucose 123 H mg/dl
(70-99)
ALT 39 H U/L
(0-35)
Urine Bilirubin 1+ A
(Negative)
Leukocyte Esterase Rfl Trace A
(Negative)
Urine Bacteria (Reflex) Few A
(Negative)
02/26/24 10:14
02/26/24 10:14
Vital Signs
Initial and Last Documented VS:
Initial Vital Signs
Temp Pulse Resp BP Pulse Ox
98.4 F 81 16 102/61 97
02/26/24 09:26 02/26/24 09:26 02/26/24 09:26 02/26/24 09:26 02/26/24 09:26
Last Documented Vital Signs
Temp Pulse Resp BP Pulse Ox
98.4 F 69 16 111/61 97
02/26/24 09:26 02/26/24 14:00 02/26/24 09:26 02/26/24 12:00 02/26/24 12:00
MDM/Problems Addressed
MDM/Problems Addressed:
78-year-old female presenting for the third time over the past few weeks patient with multiple concerns including tingling to her hands and feet squeezing sensation throughout her head neck and throat. Vital signs on arrival are normal.
Normal-appearing posterior pharynx no evidence of any swelling to the or face. Lungs are clear heart sounds normal abdomen soft good range of motion strength of all extremities. No pronator drift.. Neck is supple patient ranging her head
throughout examination normally without apparent difficulty. Patient to multiple medications. She claims that symptoms are fully resolved. Labs did show slight elevation in creatinine she was advised to stay hydrated at home otherwise stable for
close outpatient follow-up return precautions given.
*Critical Care Note
Total Time (30-74mins, 75-104mins- exclusive of procedures): Not Applicable
ED Attending Note
-
Portions of this chart may have been created with voice recognition software.� Occasional wrong word or��sound alike� substitutions may have occurred due to the inherent limitations of voice recognition software.
Discharge Plan
Departure
Patient Disposition: Home (Routine Discharge)
Date of Disposition: 02/26/24
Time of Disposition: 14:54
Patient with high blood pressure during this ER visit?: No
Condition: Good
Covid-19: Not Applicable
Discharge Problem:
Acute shoulder pain, Neck pain
Instructions: Muscle and bone pain - Discharge instructions
Prescriptions:
New
diazepam [Valium] 2 mg tablet
2 mg PO BID PRN (Reason: muscle spasm) Qty: 7 0RF
No Action
famotidine 40 mg Tablet
40 mg PO HS
lorazepam 2 mg Tablet
2 mg PO ONCE PRN (Reason: flight)
Patient Comments:
02/20/2024: last filled 01/07/24, 7 tabs for 7 days
cholestyramine-aspartame 4 gram Powder In Packet
8 g PO DAILY
levalbuterol tartrate [Xopenex HFA] 45 mcg/actuation Hfa Aerosol Inhaler
2 inh INHALATION R Q6HPRN PRN (Reason: SOB)
valsartan-hydrochlorothiazide 320-12.5 mg Tablet
1 tab PO DAILY
cholecalciferol (vitamin D3) 50 mcg (2,000 unit) Capsule
50 mcg PO DAILY
gabapentin 100 mg capsule
100 mg PO TID PRN (Reason: pain) Qty: 20 0RF
meclizine 12.5 mg tablet
12.5 mg PO BIDPRN PRN (Reason: vertigo)
zolpidem 10 mg tablet
10 mg PO HS
Patient Comments:
02/20/2024: last filled 11/24/23, 90 tabs for 90 days
sertraline 50 mg tablet
50 mg PO DAILY
rosuvastatin 20 mg tablet
20 mg PO QPM
Dulera 100-5 mcg/actuation HFA aerosol inhaler
2 puff INHALATION R BID
therapeutic multivitamin Tablet
1 tab PO DAILY
prednisone 20 mg Tablet
40 mg PO DAILY Qty: 2 0RF
famotidine 20 mg Tablet
20 mg PO HS Qty: 7 0RF
cholestyramine (with sugar) 4 gram Powder In Packet
2 ea PO DAILY@0900 Qty: 60 0RF
Referrals:
Elton Stewart MD [Active] - Follow up in 5-7 days
Chela White CRNP [Family Provider] -
Activity Restrictions/Additional Instructions:
You came to the emergency department today with concerns of multiple symptoms. Please follow closely as an outpatient. Return to the emergency department for any worsening, new or concerning symptoms. You were written for Valium to use as needed
for symptoms. Please do not drive or do any dangerous activity while taking this medication as it can cause drowsiness. Please do not combine with any other medications that cause sedation.
Interventions
Interventions:
*Risk Screen - Suicide Last Done: 02/26/24 09:26
*General Assessment Last Done: 02/26/24 09:26
*Neglect/Abuse Screening Last Done: 02/26/24 10:00
*ED COVID-19 Vaccine History Last Done: 02/26/24 09:26
ED- Neurological Assessment Last Done: 02/26/24 10:00
Discharge Date and Time
Print Language: GUYANESE
[2024-02-26] MEDS: ATIVAN 1 MG PO (10:38)
[2024-02-26] MEDS: TORADOL 15 MG IV (10:38)
[2024-02-26] MEDS: REGLAN 10 MG IV (10:38)
[2024-02-26] MEDS: NSS 500 IV (10:39)
[2024-02-26] MEDS: BENADRYL 25 MG IV (10:39)
[2024-02-26 10:47] LABS: % Basophils 0.4 % (0-2); % Eosinophils 0.2 % (0-6); % Immature Granulocytes 2.5 % (0-0.5); % Neutrophils 73.9 % (42.2-75.2); Absolute Basophils 0.1 10^3/uL (0-0.2); Absolute Immature Granulocytes 0.3 10^3/uL (0-0.05); Absolute Lymphocytes 2.1 10^3/uL (1.2-3.4); Absolute Monocytes 0.9 10^3/uL (0.1-0.6); Absolute Neutrophils 9.8 10^3/uL (1.4-6.5); Hematocrit 43.3 % (37.0-47.0); Hemoglobin 15.7 g/dL (12.0-16.0); Mean Corp Hgb Conc. 36.3 g/dL (33.0-37.0); Mean Corpuscular Volume 85.6 fL (81.0-99.0); Mean Platelet Volume 10.4 fL (7.4-10.4); Nucleated Red Blood Cells % 0 %; Platelet Count 137 10^3/uL (130-400); Red Blood Cell Count 5.06 10^6/uL (4.20-5.40); White Blood Cell Count 13.3 10^3/uL (4.8-10.8)
[2024-02-26 10:57] LABS: ALT (SGPT) 39 U/L (0-35); AST (SGOT) 27 U/L (14-36); Albumin 4.3 g/dl (3.5-5.0); Alkaline Phosphatase 51 U/L (38-126); Blood Urea Nitrogen 37 mg/dl (7-17); Calcium 9.8 mg/dl (8.4-10.2); Carbon Dioxide 25 mmol/L (22-30); Chloride 99 mmol/L (98-107); Glucose 123 mg/dl (70-99); Potassium 3.3 mmol/L (3.5-5.1); Sodium 137 mmol/L (135-145); Total Bilirubin 0.8 mg/dl (0.2-1.3); Total Protein 6.5 g/dl (6.3-8.2); eGFR 46.91
[2024-02-26 10:58] LABS: Urine Albumin Trace (Neg - Trace); Urine Bilirubin 1+ (Negative); Urine Character Slightly Cloudy (Clear); Urine Color Yellow; Urine Glucose Negative (Negative); Urine Ketone Negative (Negative); Urine Leukocyte Trace (Negative); Urine Nitrite Negative (Negative); Urine Occult Blood Negative (Negative); Urine Urobilinogen Negative (Neg - 1+)
[2024-02-26 11:00] VITALS: BP 115/66
[2024-02-26 11:27] LABS: TSH Reflex To Free T4 1.55 uIU/ml (0.47-4.68)
[2024-02-26 12:00] VITALS: BP 111/61
[2024-02-26 12:35] LABS: Urine Amorphous Seen; Urine Squamous Cell >30 /LPF (Few)
[2024-02-26 12:38] LABS: Urine Bacteria Few (Negative); Urine Red Blood Cell 0-2 /HPF (0-2); Urine White Cell 0-2 /HPF (0-5)
[2024-02-26 15:53] VITALS: BP 118/72
== END 2024-02-26 15:56 | disposition home or self-care (01) ==
LOC: EMR 09:12
PROVIDERS: Physician Assistant; EMERGENCY PHYSICIAN Emergency Medicine; FAMILY PHYSICIAN Nurse Practitioner
DX: M25.519 Pain in unspecified shoulder (principal); M54.2 Cervicalgia; G89.29 Other chronic pain; R79.89 Other specified abnormal findings of blood chemistry; I10 Essential (primary) hypertension; J45.909 Unspecified asthma, uncomplicated; K21.9 Gastro-esophageal reflux disease without esophagitis; Z90.49 Acquired absence of other specified parts of digestive tract
CPT/HCPCS: 96374; 96375; 96361; 99284; 80053; 81003; 81015; 84443; 85025; 93005

== ENCOUNTER → 2024-03-02 14:00 | Outpatient (REF) | payer MEDICARE, BC, SELFPAY | LOC: REG 14:00 | PROVIDERS: ATTENDING PHYSICIAN Nurse Practitioner | DX: R19.7 Diarrhea, unspecified (principal) | CPT/HCPCS: 87324; 87449 ==

== ENCOUNTER 2024-03-03 20:06 | Emergency (ER) | payer MEDICARE, BC, SELFPAY ==
[2024-03-03 20:12] VITALS: BP 116/68
[2024-03-03 20:23] VITALS: BMI 30.1
--- NOTE | 2024-03-03 20:23 | ED.GENMED ---
History of Present Illness
General
Chief Complaint: Weakness
Source: patient
Exam Limitations: none
Time Seen by Provider: 03/03/24 20:16
History of Present Illness
History of Present Illness:
See MDM
Past History
Past History
ED Past Medical History: Asthma, GERD and HTN
ED Past Surgical History: Appendectomy, Cholecystectomy, Orthopedic and Tonsilectomy
Patient has exhibited threatening behavior?: No
PSI?: No
Social History
Tobacco: Non-smoker
Alcohol: None
Drug: None
Personal:
Living: with family
Phy Exam
Physical Exam
Physical Exam:
See MDM
Course
Orders/Labs/Results
Orders:
Orders
03/03/24 20:22
Electrocardiogram (*1) Urgent
Reason for Study: Fatigue / Weakness
EKG- Treatment ONCE
03/03/24 21:05
Diazepam [Valium] 2 mg PO NOW STA
HydrOXYZINE [Atarax] 25 mg PO NOW STA
Ketorolac [Toradol] 30 mg IM NOW STA
03/03/24 21:40
Lyme Progressive Urgent
Vital Signs
Initial and Last Documented VS:
Initial Vital Signs
Temp Pulse Resp BP Pulse Ox
97.6 F 76 25 116/68 98
03/03/24 20:25 03/03/24 20:25 03/03/24 20:25 03/03/24 20:25 03/03/24 20:25
Last Documented Vital Signs
Temp Pulse Resp BP Pulse Ox
97.6 F 76 25 116/68 98
03/03/24 20:25 03/03/24 20:25 03/03/24 20:25 03/03/24 20:25 03/03/24 20:25
MDM/Problems Addressed
Differential Diagnosis Includes:
HPI and MDM Narrative:
78-year-old female presenting with generalized weakness and diffuse numbness all over her body. Patient states she felt weak so she sat down in her chair and states that she almost passed out. On arrival, patient stating she cannot move any of her
extremities yet she will often be seen talking and using her hands. Patient states she is numb all over and states she cannot feel when I touch any extremity yet she will withdraw from painful stimuli
Patient has been to the emergency department several times for similar symptoms. I explained to patient that all of her multiple test have been negative which include x-rays, blood work, CTs and MRI. I question what the plan is in the outpatient
setting in regards to her ongoing symptoms. Patient states she is opposed to follow-up with pain management and has an appointment tomorrow. She states she has a pinched nerve in her neck
Physical exam
General: Sitting in bed comfortably. Appears visibly frustrated.
HEENT: protecting airway
Neck: appears supple
CV: No evidence of cyanosis
Resp: No accessory muscle use
Abd: Non-distended
Extremities: No deformities
Neuro: alert. Is able to move all 4 extremities
Psych: Flat affect
Skin: Intact
Problems Addressed including Acute and Chronic Conditions affecting care:
1. Generalized weakness
Acuity: acute
Prognosis: stable
Details: Patient claims she cannot move her extremities yet I see her move all 4 extremities. She claims complete numbness yet she withdraws from painful stimuli. Will obtain screening EKG
Updates
I reviewed her prior ER visits. She was even admitted for similar symptoms. She has had a negative workup.
9:06 PM I had a long discussion with daughter Wen on the phone. Everyone is in agreement that we are treating symptoms at this point rather than problems. It is not quite certain what her intermittent issue really is. They are questioning
whether we can try a different antihistamine other than Benadryl. They are concerned this is related to a wasp bite 2 weeks ago. Will give a trial of Atarax. Patient complains of the pinched nerve in her neck and we will give dose of Toradol.
Her PCP prescribed Valium but patient is scared to try it. She is agreeable to try it here in the emergency department while she can be observed. Will obtain Lyme testing since this appears to be one of the test not performed over the past several
weeks.
10:15 PM patient feeling much better and she and feel comfortable going home
Differential Diagnosis (but not limited to): Anxiety, chronic fatigue
Testing considered: Repeat blood work but she recently had blood work a few days ago
Drug therapy (if applicable): OTC meds, please see d/c instruction regarding Rx drugs
Amount and/or Complexity of Data Reviewed
Clinical info obtained from: Patient
External data reviewed: Multiple visits including admission for similar symptoms negative workup
Labs I independently reviewed (but not limited to): N/A
Radiology: N/A
Pulse Ox: not hypoxic
EKG independently reviewed: sinus rhythm, normal axis, no STEMI
Wafer Mounter: Sinus rhythm
Critical Care: N/A
Risk of Complication:
Social Determinants of health: Good social support
Discussed with other providers: N/A
Escalation of Care includes Admit/Obs: After being observed in the Emergency Department, pt stable for discharge.
Occasional wrong word or 'sound a like' substitutions may have occurred due to the inherent limitations of voice recognition software. Read the chart carefully and recognize, using context, where substitutions have occurred.
*Critical Care Note
Total Time (30-74mins, 75-104mins- exclusive of procedures): Not Applicable
ED Attending Note
-
Portions of this chart may have been created with voice recognition software.� Occasional wrong word or��sound alike� substitutions may have occurred due to the inherent limitations of voice recognition software.
Discharge Plan
Departure
Patient Disposition: Home (Routine Discharge)
Date of Disposition: 03/03/24
Time of Disposition: 22:16
Patient with high blood pressure during this ER visit?: No
Discharge Problem:
Generalized weakness
Instructions: Generalized Weakness (DC)
Prescriptions:
New
diclofenac potassium 50 mg tablet
50 mg PO BID Qty: 20 0RF
hydroxyzine HCl 25 mg tablet
25 mg PO BID PRN (Reason: anxiety ) Qty: 20 0RF
diazepam [Valium] 2 mg tablet
2 mg PO BID PRN (Reason: muscle spasm) Qty: 14 0RF
No Action
famotidine 40 mg Tablet
40 mg PO HS
lorazepam 2 mg Tablet
2 mg PO ONCE PRN (Reason: flight)
Patient Comments:
02/20/2024: last filled 01/07/24, 7 tabs for 7 days
cholestyramine-aspartame 4 gram Powder In Packet
8 g PO DAILY
levalbuterol tartrate [Xopenex HFA] 45 mcg/actuation Hfa Aerosol Inhaler
2 inh INHALATION R Q6HPRN PRN (Reason: SOB)
valsartan-hydrochlorothiazide 320-12.5 mg Tablet
1 tab PO DAILY
cholecalciferol (vitamin D3) 50 mcg (2,000 unit) Capsule
50 mcg PO DAILY
gabapentin 100 mg capsule
100 mg PO TID PRN (Reason: pain) Qty: 20 0RF
meclizine 12.5 mg tablet
12.5 mg PO BIDPRN PRN (Reason: vertigo)
zolpidem 10 mg tablet
10 mg PO HS
Patient Comments:
02/20/2024: last filled 11/24/23, 90 tabs for 90 days
sertraline 50 mg tablet
50 mg PO DAILY
rosuvastatin 20 mg tablet
20 mg PO QPM
Dulera 100-5 mcg/actuation HFA aerosol inhaler
2 puff INHALATION R BID
therapeutic multivitamin Tablet
1 tab PO DAILY
prednisone 20 mg Tablet
40 mg PO DAILY Qty: 2 0RF
famotidine 20 mg Tablet
20 mg PO HS Qty: 7 0RF
cholestyramine (with sugar) 4 gram Powder In Packet
2 ea PO DAILY@0900 Qty: 60 0RF
diazepam [Valium] 2 mg tablet
2 mg PO BID PRN (Reason: muscle spasm) Qty: 7 0RF
Referrals:
Chela White CRNP [Family Provider] -
Activity Restrictions/Additional Instructions:
As we discussed, it is not certain what is causing your symptoms. Please keep your outpatient appointments and return for worsening symptoms.
Today, you received 30 mg of Toradol. I prescribed diclofenac potassium which is in the same family. This is a pain medicine in the same family of ibuprofen and Aleve.
Today, you received 2 mg of Valium. This is a muscle relaxant.
Today, you received 25 mg of hydroxyzine. This is in the same family of Benadryl. This can help with itching and swelling and even anxiety. If you take hydroxyzine, do not take Benadryl.
You may return at any time if you have further concerns.
Please follow up with your doctor at the first available appointment, preferably this week.
Interventions
Interventions:
*Risk Screen - Suicide Last Done: 03/03/24 20:27
*General Assessment Last Done: 03/03/24 20:27
*Neglect/Abuse Screening Last Done: 03/03/24 20:27
*ED COVID-19 Vaccine History Last Done: 03/03/24 20:27
Discharge Date and Time
Print Language: BENINESE
[2024-03-03 20:25] VITALS: BP 116/68
[2024-03-03 21:00] VITALS: BP 133/79
[2024-03-03] MEDS: ATARAX 25 MG PO (21:42)
[2024-03-03] MEDS: VALIUM 2 MG PO (21:42)
[2024-03-03] MEDS: TORADOL 30 MG IM (21:42)
[2024-03-04 11:43] LABS: Lyme Antibody Screen, EIA Negative (Negative)
== END 2024-03-03 22:53 | disposition home or self-care (01) ==
LOC: EMR 20:06
PROVIDERS: EMERGENCY PHYSICIAN Student in an Organized Health Care Education/Training Program; FAMILY PHYSICIAN Nurse Practitioner
DX: R53.1 Weakness (principal); R20.0 Anesthesia of skin; I10 Essential (primary) hypertension; J45.909 Unspecified asthma, uncomplicated; K21.9 Gastro-esophageal reflux disease without esophagitis; Z90.49 Acquired absence of other specified parts of digestive tract
CPT/HCPCS: 96372; 99284; 86618; 93005

== ENCOUNTER 2024-03-06 08:09 | Emergency (ER) | payer MEDICARE, BC, SELFPAY ==
[2024-03-06 08:21] VITALS: BP 100/63
[2024-03-06 09:00] VITALS: BP 94/55
[2024-03-06 09:34] LABS: ALT (SGPT) 42 U/L (0-35); AST (SGOT) 22 U/L (14-36); Albumin 4.1 g/dl (3.5-5.0); Alkaline Phosphatase 69 U/L (38-126); Blood Urea Nitrogen 25 mg/dl (7-17); Calcium 9.6 mg/dl (8.4-10.2); Carbon Dioxide 30 mmol/L (22-30); Chloride 99 mmol/L (98-107); Estimated Creatinine Clearance 48 ml/min; Glucose 121 mg/dl (70-99); Potassium 3.3 mmol/L (3.5-5.1); Sodium 139 mmol/L (135-145); Total Bilirubin 0.8 mg/dl (0.2-1.3); Total Protein 6.3 g/dl (6.3-8.2); eGFR 52.08
--- NOTE | 2024-03-06 09:36 | ED.GENMED ---
History of Present Illness
General
Chief Complaint: Chest Pain
Source: patient and spouse
Exam Limitations: none
Time Seen by Provider: 03/06/24 09:04
History of Present Illness
History of Present Illness:
78-year-old female who presents after she developed chest pain this morning. She woke up around 730 shortly after that noticed she had discomfort in her left chest with some discomfort in her left back numbness down her left arm. She took her
's nitroglycerin and symptoms resolved. Patient states the whole event lasted about half hour. She denies shortness of breath. No palpitations. She currently just feels a little fatigued but no further pain. No leg swelling or leg pain.
No cough. No hemoptysis
Past History
Past History
ED Past Medical History: Asthma, GERD and HTN
ED Past Surgical History: Appendectomy, Cholecystectomy, Orthopedic and Tonsilectomy
Patient has exhibited threatening behavior?: No
PSI?: No
Social History
Tobacco: Non-smoker
Alcohol: None
Drug: None
Personal:
Living: with family
Phy Exam
Physical Exam
Physical Exam:
CONSTITUTIONAL Patient alert and oriented to person, place and time. Well-appearing. Vital signs reviewed.
HEAD atraumatic, normocephalic.
EYES eyelids normal to inspection, Extraocular muscles intact, Conjunctiva normal, Sclera normal.
NECK normal range of motion, Trachea midline, no jugular venous distention.
RESPIRATORY CHEST No respiratory distress noted, Chest expansion equal, Bilateral breath sounds clear.
CARDIOVASCULAR regular rate and rhythm, Heart sounds normal.
ABDOMEN abdomen nontender, Bowel sounds normal. No distention.
BACK normal inspection, no obvious deformities
UPPER EXTREMITY range of motion normal, Motor strength normal, no cyanosis, no edema.
LOWER EXTREMITY range of motion normal, Motor strength normal, no cyanosis, no edema.
NEURO Speech normal, No focal motor deficits, Thompson coma scale 15, Memory normal, Cranial Nerves intact to screening exam.
SKIN skin warm, dry, and normal in color.
Scores
Heart Score for Chest Pain Patients
STEMI patient?: No
History: Slightly or Non-Suspicious
ECG: Normal
Age: >/= 65 years
Risk Factors: 1 or 2 Risk Factors
Troponin: </= Normal Limit
Heart Score for Chest Pain Patients: 3
Heart Score Risk: 2.5% MACE over next 6 weeks
Course
Orders/Labs/Results
Orders:
Orders
03/06/24
Electrocardiogram (*1) Stat
Reason for Study: Chest Pain
Comment: DONE NO ORDER ENTERED
03/06/24 08:24
ECG [Electrocardiogram (*1)] Urgent
Reason for Study: Chest Pain
EKG- Treatment ONCE
03/06/24 09:12
Cardiac Monitoring- Treatment ONCE
IV Insert/Care/Rem.- Treatment PRN
03/06/24 09:15
Complete Blood Count/With Diff Urgent
Comprehensive Metabolic Panel Urgent
Troponin I Urgent
03/06/24 11:03
CR Chest - 2 Views Urgent
Comment:
Reason For Exam: cp
03/06/24 12:00
Troponin I Urgent
Abnormal Lab Results
03/06/24
09:15
Plt Count 112 L 10^3/uL
(130-400)
MPV 10.5 H fL
(7.4-10.4)
Abs Immat Gran (auto) 0.2 H 10^3/uL
(0-0.05)
Immature Gran % 2.5 H %
(0-0.5)
Lymphocytes % 16.9 L %
(20.5-51.1)
Potassium 3.3 L mmol/L
(3.5-5.1)
BUN 25 H mg/dl
(7-17)
Creatinine 1.1 H mg/dL
(0.6-1.0)
Glucose 121 H mg/dl
(70-99)
ALT 42 H U/L
(0-35)
03/06/24 09:15
03/06/24 09:15
Vital Signs
Initial and Last Documented VS:
Initial Vital Signs
Temp Pulse Resp BP Pulse Ox
97.9 F 82 18 100/63 97
03/06/24 08:21 03/06/24 08:21 03/06/24 08:21 03/06/24 08:21 03/06/24 08:21
Last Documented Vital Signs
Temp Pulse Resp BP Pulse Ox
97.9 F 75 20 103/67 96
03/06/24 08:21 03/06/24 12:30 03/06/24 12:30 03/06/24 12:00 03/06/24 13:15
MDM/Problems Addressed
MDM/Problems Addressed:
Chest pain
Chronic conditions affecting care: HTN
*Radiology
Radiology exam reviewed: radiology read reviewed and all reviewed NAD by ED Provider
*Pulse Oximetry
Patient hypoxic: no
*EKG
Interpreted by ED Provider?: Yes
Interpretation: normal
Rate: normal
Rhythm: sinus
[place]: normal axis
Ischemia: no ischemia
*Laborer Pipelines Interpretation
Rate: normal
Interpretation: normal
Rhythm: sinus
*Critical Care Note
Total Time (30-74mins, 75-104mins- exclusive of procedures): Not Applicable
Data Reviewed
Review of Other/Old Records Reveals: Labs
Source: patient and spouse
Prescriptions/Medications Considered But Not Given:
considered nitro but no further cp
Patient Management
Escalation/DeEscalation of care consider admission/obs:
pt appears well. has had several visits recently. trop negative x 2. EKG negative x 2. Patient is well-appearing. Will refer to outpatient cardiology follow-up hotline
Update Note
Update Note:
Patient separately is requesting something for as needed use in case she gets anxious. She feels guilty that she has had to come to the emergency department several times in the recent months. Reiterated that we are happy to see her if she ever
feels bad in any way. She agrees to only use the Xanax for anxiety and if she were to have returning chest pain that she should be seen in the emergency department.
ED Attending Note
-
Portions of this chart may have been created with voice recognition software.� Occasional wrong word or��sound alike� substitutions may have occurred due to the inherent limitations of voice recognition software.
Discharge Plan
Departure
Patient Disposition: Home (Routine Discharge)
Date of Disposition: 03/06/24
Time of Disposition: 13:25
Patient with high blood pressure during this ER visit?: No
Discharge Problem:
Chest pain
Instructions: Chest Pain CBC Follow Up
Prescriptions:
New
alprazolam [Xanax] 0.25 mg tablet
0.25 mg PO TID PRN (Reason: anxiety) Qty: 10 0RF
No Action
famotidine 40 mg Tablet
40 mg PO HS
lorazepam 2 mg Tablet
2 mg PO ONCE PRN (Reason: flight)
Patient Comments:
02/20/2024: last filled 01/07/24, 7 tabs for 7 days
cholestyramine-aspartame 4 gram Powder In Packet
8 g PO DAILY
levalbuterol tartrate [Xopenex HFA] 45 mcg/actuation Hfa Aerosol Inhaler
2 inh INHALATION R Q6HPRN PRN (Reason: SOB)
valsartan-hydrochlorothiazide 320-12.5 mg Tablet
1 tab PO DAILY
cholecalciferol (vitamin D3) 50 mcg (2,000 unit) Capsule
50 mcg PO DAILY
gabapentin 100 mg capsule
100 mg PO TID PRN (Reason: pain) Qty: 20 0RF
meclizine 12.5 mg tablet
12.5 mg PO BIDPRN PRN (Reason: vertigo)
zolpidem 10 mg tablet
10 mg PO HS
Patient Comments:
02/20/2024: last filled 11/24/23, 90 tabs for 90 days
sertraline 50 mg tablet
50 mg PO DAILY
rosuvastatin 20 mg tablet
20 mg PO QPM
Dulera 100-5 mcg/actuation HFA aerosol inhaler
2 puff INHALATION R BID
therapeutic multivitamin Tablet
1 tab PO DAILY
prednisone 20 mg Tablet
40 mg PO DAILY Qty: 2 0RF
famotidine 20 mg Tablet
20 mg PO HS Qty: 7 0RF
cholestyramine (with sugar) 4 gram Powder In Packet
2 ea PO DAILY@0900 Qty: 60 0RF
diazepam [Valium] 2 mg tablet
2 mg PO BID PRN (Reason: muscle spasm) Qty: 7 0RF
diclofenac potassium 50 mg tablet
50 mg PO BID Qty: 20 0RF
hydroxyzine HCl 25 mg tablet
25 mg PO BID PRN (Reason: anxiety ) Qty: 20 0RF
diazepam [Valium] 2 mg tablet
2 mg PO BID PRN (Reason: muscle spasm) Qty: 14 0RF
Referrals:
Chela White CRNP [Family Provider] -
Activity Restrictions/Additional Instructions:
Please take 81 mg of aspirin a day. Please avoid strenuous or exertional activity until cleared by cardiology. Please see cardiology in the next 48 hours for reevaluation. Return immediately for worsening pain, shortness breath, palpitations,
sweating, nausea, weakness of any kind, numbness, tingling or any other concerns.
Cardiology has been notified and a follow up appointment has been requested. Someone will call you on the next business day to schedule a follow up appointment.
Interventions
Interventions:
*Risk Screen - Suicide Last Done: 03/06/24 08:21
*General Assessment Last Done: 03/06/24 08:21
*Neglect/Abuse Screening Last Done: 03/06/24 08:21
ED- Fall Risk Assessment Last Done: 03/06/24 13:48
*ED COVID-19 Vaccine History Last Done: 03/06/24 13:46
*Nursing Disposition Last Done: 03/06/24 13:48
ED- Cardiac Assessment Last Done: 03/06/24 09:19
Discharge Date and Time
Discharge Date/Time: 03/06/24 13:48
Print Language: TELUGU
[2024-03-06 09:43] LABS: Troponin I < 0.012 ng/ml
[2024-03-06 10:00] VITALS: BP 109/65
[2024-03-06 10:17] LABS: White Blood Cell Count 8.4 10^3/uL (4.8-10.8)
[2024-03-06 10:18] LABS: Hemoglobin 14.6 g/dL (12.0-16.0); Mean Corpuscular Hgb 30.1 pg (27.0-31.0); Mean Corpuscular Volume 88.7 fL (81.0-99.0); Mean Platelet Volume 10.5 fL (7.4-10.4); Platelet Count 112 10^3/uL (130-400); Red Blood Cell Count 4.85 10^6/uL (4.20-5.40); Red Cell Dist. Width 11.9 % (11.5-14.5)
[2024-03-06 10:19] LABS: % Basophils 0.4 % (0-2); % Eosinophils 1.7 % (0-6); % Immature Granulocytes 2.5 % (0-0.5); % Lymphocytes 16.9 % (20.5-51.1); % Monocytes 7.3 % (1.7-9.3); % Neutrophils 71.2 % (42.2-75.2)
[2024-03-06 10:20] LABS: Absolute Eosinophils 0.1 10^3/uL (0-0.7); Absolute Immature Granulocytes 0.2 10^3/uL (0-0.05); Absolute Lymphocytes 1.4 10^3/uL (1.2-3.4); Absolute Monocytes 0.6 10^3/uL (0.1-0.6)
[2024-03-06 10:22] LABS: Nucleated Red Blood Cells % 0 %
[2024-03-06 11:01] VITALS: BP 99/68
[2024-03-06 12:00] VITALS: BP 103/67
[2024-03-06 12:31] LABS: Troponin I < 0.012 ng/ml
== END 2024-03-06 13:48 | disposition home or self-care (01) ==
LOC: EMR 08:09
PROVIDERS: EMERGENCY PHYSICIAN Emergency Medicine; FAMILY PHYSICIAN Nurse Practitioner
DX: R07.89 Other chest pain (principal); J45.909 Unspecified asthma, uncomplicated; K21.9 Gastro-esophageal reflux disease without esophagitis; I10 Essential (primary) hypertension
CPT/HCPCS: 99283; 71046; 80053; 84484; 85025; 93005

== ENCOUNTER 2024-03-24 13:01 | Observation (INO) | payer MEDICARE, BC, SELFPAY ==
[2024-03-24] VITALS (8 sets, daily range): BP systolic 99–140; BP diastolic 59–121; PULSE 77; O2SAT 98; BMI 30.8; BMI 28.8
--- NOTE | 2024-03-24 10:34 | ED.GENMED ---
History of Present Illness
General
Chief Complaint: Dizziness
Source: patient, records and family
Time Seen by Provider: 03/24/24 10:18
History of Present Illness
History of Present Illness:
78-year-old female with past medical history of hypertension, GERD, IBS presenting back to the emergency department for reevaluation after being seen in this ER a few times for intractable vertigo with no specified etiology. Symptoms started a
little over 1 month ago after patient was stung by a wasp and has undergone workup here in the ER as well as an outpatient with labs, neuroimaging and further testing that has yet to be performed but without any relief. Patient has been taking
meclizine which does give her some transient relief but symptoms usually return in the morning. Today patient symptoms were more severe which is what prompted her to come back to the ER. Patient had a trigger point lidocaine injection done by
orthopedics because she is also having neck and left upper extremity pain and was scheduled to have further injections yesterday but due to her vertigo was unable to make that appointment. Daughter states that at this time patient is even having a
hard time at home and family is having a hard time caring for her with how symptomatic she has been. Patient has not done vestibular therapy as of yet as they were waiting for imaging of the cervical spine which patient is due to have this coming
Friday.
Past History
Past History
ED Past Medical History: Asthma, GERD and HTN
ED Past Surgical History: Appendectomy, Cholecystectomy, Orthopedic and Tonsilectomy
Patient has exhibited threatening behavior?: No
PSI?: No
Social History
Tobacco: Non-smoker
Alcohol: None
Drug: None
Personal:
Living: with family
Review of Systems
Review of Systems
All Other Systems: ROS reviewed and negative except as documented in HPI and ROS
Phy Exam
Physical Exam
Physical Exam:
GENERAL: Alert , appears very uncomfortable, tearful, difficult time sitting still
HEAD: NCAT
EYE: Pupils 4mm b/l, EOMI, no nystagmus but patient very symptomatic with horizontal eye movement, PERRL
NECK: Supple, no significant adenopathy.
ENT: o/p clr, mmm.
CARDIAC: Regular rate and rhythm .
LUNGS: Clear breath sounds bilaterally, no acute respiratory distress, no wheezes/rales/rhonchi
NEUROLOGICAL: Alert and oriented, no focal neuro deficits
SKIN: Warm and dry, skin intact.
MUSCULOSKELETAL: No edema, well perfused.
PSYCH: Normal and appropriate interaction.
Scores
Heart Failure Risk
Heart Failure Risk Score: Not Applicable
Heart Score for Chest Pain Patients
STEMI patient?: Not applicable
Withdrawal Assessment of Alcohol
Withdrawal Assessment Completed?: Not applicable
Course
Orders/Labs/Results
Orders:
Orders
03/24/24 10:34
Case Management Consult ONCE
Case Management Consult: Discharge Planning
Diazepam [Valium] 5 mg PO NOW STA
Physical Therapy Consult [Pt Eval And Treat] Urgent
Treatment: vertigo
Activity Level: Ambulate
03/24/24 10:35
Electrocardiogram (*1) Urgent
Reason for Study: Vertigo / Dizzy
EKG- Treatment ONCE
03/24/24 10:41
Basic Metabolic Panel Urgent
Complete Blood Count/With Diff Urgent
Magnesium Urgent
03/24/24 11:08
Scopolamine [Transderm-Scop] 1 patch TRANSDERM NOW STA
03/24/24 12:19
Potassium Chloride 10% Elixir [KCl Elixir] 40 meq PO NOW STA
03/24/24 12:33
Admit/Transfer Patient As Directed
Co-Sign Provider:
Level of Care: Observation services
Assign to:: Medical/Surgical
Physician / Group: Elsa
Diagnosis: Vertigo
PRN Pain Medication Management As Directed
May give lesser potent ordered pain med per pt: Yes
preference::
Protocol:: Medication orders for pain may be administered in a
manner that supports deferring to patient preference
when the pt is:
- Requesting an ordered lesser potent pain medication.
Least to most potent pain medications are defined
as: acetaminophen < NSAID < tramadol < opioids
(morphine, oxycodone, hydromorphone).
- Requesting a lesser dose of the same medication IF
ORDERED.
- Requesting a less intrusive route of administration
if both routes are prescribed by the provider (PO <
IV).
03/24/24 12:34
Code Status As Directed
Resuscitation Status: Full Code
Abnormal Lab Results
03/24/24
10:41
Plt Count 111 L 10^3/uL
(130-400)
MPV 10.5 H fL
(7.4-10.4)
Abs Immat Gran (auto) 0.2 H 10^3/uL
(0-0.05)
Immature Gran % 2.1 H %
(0-0.5)
Lymphocytes % 16.7 L %
(20.5-51.1)
Potassium 3.3 L mmol/L
(3.5-5.1)
BUN 21 H mg/dl
(7-17)
Glucose 111 H mg/dl
(70-99)
03/24/24 10:41
03/24/24 10:41
Vital Signs
Initial and Last Documented VS:
Initial Vital Signs
Temp Pulse Resp BP Pulse Ox
97.8 F 98 18 130/93 100
03/24/24 09:18 03/24/24 09:18 03/24/24 09:18 03/24/24 09:18 03/24/24 09:18
Last Documented Vital Signs
Temp Pulse Resp BP Pulse Ox
97.8 F 67 16 121/67 98
03/24/24 09:18 03/24/24 12:00 03/24/24 12:00 03/24/24 12:00 03/24/24 12:00
MDM/Problems Addressed
Differential Diagnosis Includes:
BPPV, labyrinthitis, meniere's disease, I do not have concern for CVA given patient had a normal MRI within the last month
MDM/Problems Addressed:
78-year-old female presenting to the ER for evaluation of persistent vertigo since being stung by a wasp a little over 1 month ago. Patient has been worked up extensively with MRI, CTA imaging, labs and no specific etiologies found. Patient also
was experiencing neck pain and radicular symptoms to the left upper extremity for which she is being worked up by orthopedics. No new symptoms today. Patient did not take her meclizine today either. She is hemodynamically stable in no acute
distress. I doubt any emergent pathologies however given the severity of the patient's symptoms will trial medications here including scopolamine and Valium. Will check labs and EKG. I do not feel patient needs any emergent imaging as she has
already had significant this month with no etiologies found. Daughter is requesting case management consult as they are having a hard time caring for the patient at home. Will also order physical therapy consult as patient has yet to have any
vestibular therapies performed.
*Pulse Oximetry
Patient hypoxic: no
*Critical Care Note
Total Time (30-74mins, 75-104mins- exclusive of procedures): Not Applicable
Patient Management
Discussion with other providers: Hospitalist and Other
Escalation/DeEscalation of care consider admission/obs:
Patient seen by case management. They would be able to get to a [facility] facility but unable to place today. Physical therapy evaluated patient but patient did not want any vestibular treatments involving any neck manipulation. Patient
persistently symptomatic. Unable to safely dispositioned home so will admit until able to be dispositioned to the [facility] facility.
ED Attending Note
-
Portions of this chart may have been created with voice recognition software.� Occasional wrong word or��sound alike� substitutions may have occurred due to the inherent limitations of voice recognition software.
Discharge Plan
Departure
Patient Disposition: Admit
Date of Disposition: 03/24/24
Time of Disposition: 12:05
Presentation/result/management discussed w/ accepting MD/DO: Hospitalist
Discharge Problem:
Vertigo
Prescriptions:
No Action
lorazepam 2 mg Tablet
2 mg PO ONCE PRN (Reason: flight)
Patient Comments:
02/20/2024: last filled 01/07/24, 7 tabs for 7 days
levalbuterol tartrate [Xopenex HFA] 45 mcg/actuation Hfa Aerosol Inhaler
2 inh INHALATION R Q6HPRN PRN (Reason: SOB)
valsartan-hydrochlorothiazide 320-12.5 mg Tablet
1 tab PO DAILY
cholecalciferol (vitamin D3) 50 mcg (2,000 unit) Capsule
50 mcg PO DAILY
gabapentin 100 mg capsule
100 mg PO TID PRN (Reason: pain) Qty: 20 0RF
zolpidem 10 mg tablet
10 mg PO HS
Patient Comments:
02/20/2024: last filled 11/24/23, 90 tabs for 90 days
sertraline 50 mg tablet
50 mg PO DAILY
rosuvastatin 20 mg tablet
20 mg PO QPM
Dulera 100-5 mcg/actuation HFA aerosol inhaler
2 puff INHALATION R BID
therapeutic multivitamin Tablet
1 tab PO DAILY
famotidine 20 mg Tablet
20 mg PO HS Qty: 7 0RF
cholestyramine (with sugar) 4 gram Powder In Packet
2 ea PO DAILY@0900 Qty: 60 0RF
diazepam [Valium] 2 mg tablet
2 mg PO BID PRN (Reason: muscle spasm) Qty: 7 0RF
diclofenac potassium 50 mg tablet
50 mg PO BID Qty: 20 0RF
hydroxyzine HCl 25 mg tablet
25 mg PO BID PRN (Reason: anxiety ) Qty: 20 0RF
alprazolam [Xanax] 0.25 mg tablet
0.25 mg PO TID PRN (Reason: anxiety) Qty: 10 0RF
Referrals:
Chela White CRNP [Family Provider] -
Interventions
Interventions:
*Risk Screen - Suicide Last Done: 03/24/24 09:18
*General Assessment Last Done: 03/24/24 09:18
*Neglect/Abuse Screening Last Done: 03/24/24 09:18
*ED COVID-19 Vaccine History Last Done: 03/24/24 10:45
ED- Neurological Assessment Last Done: 03/24/24 12:04
ED Swallowing Screen Last Done: 03/24/24 10:46
Discharge Date and Time
Print Language: YI
[2024-03-24] MEDS: VALIUM 5 MG PO (10:44)
--- NOTE | 2024-03-24 10:50 | CM ---
Addendum entered by Nancy Capellan RN 03/24/24 14:33:
[facility] is able to accept. CM to contact Elizabeth when patient is ready for discharge.
Addendum entered by Nancy Capellan RN 03/24/24 14:32:
CM gave patient [facility] letter.
Addendum entered by Nancy Capellan RN 03/24/24 11:57:
Patient is part of the [facility] program via [facility]. Patient and family are agreeable to [facility]. CM is awaiting final acceptance.
CM updated ED PA regarding discharge plan. Plan to bring patient in and then further plan for discharge to [facility].
Addendum entered by Nancy Capellan RN 03/24/24 11:34:
CM spoke with patient's daughter. Daughter is willing to private pay for SNF. CM sent referrals to [facility]. [facility], [facility] and [facility]. CM will await acceptance. CM updated ED PA>
Original Note:
CM reviewed medical records. CM will await continued clinical work up and PT evaluation.
[2024-03-24 11:04] LABS: % Basophils 0.4 % (0-2); % Eosinophils 1.4 % (0-6); % Immature Granulocytes 2.1 % (0-0.5); % Lymphocytes 16.7 % (20.5-51.1); % Monocytes 6.3 % (1.7-9.3); % Neutrophils 73.1 % (42.2-75.2); Absolute Eosinophils 0.1 10^3/uL (0-0.7); Absolute Immature Granulocytes 0.2 10^3/uL (0-0.05); Absolute Lymphocytes 1.2 10^3/uL (1.2-3.4); Absolute Monocytes 0.5 10^3/uL (0.1-0.6); Absolute Neutrophils 5.3 10^3/uL (1.4-6.5); Hematocrit 39.7 % (37.0-47.0); Mean Corp Hgb Conc. 35.3 g/dL (33.0-37.0); Mean Corpuscular Hgb 30.3 pg (27.0-31.0); Mean Corpuscular Volume 85.9 fL (81.0-99.0); Mean Platelet Volume 10.5 fL (7.4-10.4); Nucleated Red Blood Cells % 0 %; Platelet Count 111 10^3/uL (130-400); Red Blood Cell Count 4.62 10^6/uL (4.20-5.40); White Blood Cell Count 7.3 10^3/uL (4.8-10.8)
[2024-03-24 11:11] LABS: Blood Urea Nitrogen 21 mg/dl (7-17); Calcium 9.5 mg/dl (8.4-10.2); Carbon Dioxide 29 mmol/L (22-30); Chloride 101 mmol/L (98-107); Estimated Creatinine Clearance 57 ml/min; Glucose 111 mg/dl (70-99); Magnesium 1.8 mg/dl (1.6-2.3); Potassium 3.3 mmol/L (3.5-5.1); Sodium 139 mmol/L (135-145); eGFR > 60.00
[2024-03-24] MEDS: TRANSDERM-SCOP 1 PATCH TRANSDERM (11:22)
[2024-03-24] MEDS: KCL ELIXIR 40 MEQ PO (12:42)
--- NOTE | 2024-03-24 12:43 | HPS.HSE ---
Family Physician
-
Family Physician: JULITO Hagen
Chief Complaint
-
Vertigo
History of Present Illness
Patient is a 78 y/o female past medical history of hypertension, asthma and irritable bowel syndrome who presents with vertigo for the past month. Patient reports she was bitten by a wasp and has had vertigo, as well as problems with neck/upper
back/shoulder pain. She had a negative brain MRI about a month ago, and is scheduled for a cervical spine MRI this weekend. She reports symptoms are worse in the morning, and improve over the coarse of the day. She has been using meclizine at home
with only some relief. She has also been receiving lidocaine injections for her pinched nerve, but missed an appointment yesterday due to vertigo.
Medical History
Past Medical History
Past Medical History: Reports Other
Additional Past Medical History:
Essential Hypertension
Hyperlipidemia
Asthma
Irritable Bowel Syndrome
GERD
Cervical Spine Degenerative Disc Disease
Anxiety
Past Surgical History: Reports Other
Additional Past Surgical History:
Appendectomy
Cholecystectomy
Tonsillectomy
Lumbar Spine Fusion
Social History
Tobacco: Non-smoker
Alcohol: None
Family History
Family History: Not pertinent
Allergies / Home Medications
Allergies reflects when Allergies were last updated in [facility].
Home Medications with original date entered in [facility]
Allergy/Medication List:
Allergies
Allergy/AdvReac Type Severity Reaction Status Date / Time
codeine Allergy Severe Anaphylaxis Verified 03/06/24 08:21
Iodinated Contrast Media Allergy Severe Anaphylaxis Verified 03/06/24 08:21
[Iodinated Contrast Media -
IV Dye]
Home Medications
levalbuterol tartrate 45 mcg/actuation aerosol inhaler (Xopenex HFA) 2 inh inhalation R Q6HPRN PRN SOB 11/28/22
mometasone-formoterol HFA 100 mcg-5 mcg/actuation aerosol inhaler (Dulera) 2 puff inhalation R BID Lung/Breathing Issues 02/20/24
rosuvastatin 20 mg tablet 20 mg PO QPM High Cholesterol 02/20/24
sertraline 50 mg tablet 50 mg PO DAILY Mental Health/Anxiety 02/20/24
therapeutic multivitamin (Thera-Tabs tablet) 1 tab PO DAILY Supplement 02/20/24
zolpidem 10 mg tablet 10 mg PO HS Sleep 02/20/24
cholecalciferol (vitamin D3) 25 mcg (1,000 unit) tablet (Vitamin D3) 25 mcg PO DAILY 03/24/24
cholestyramine (with sugar) 4 gram powder for susp in a packet 2 - 4 g PO DAILY 03/24/24
famotidine 40 mg tablet (Pepcid) 40 mg PO HS 03/24/24
meclizine 25 mg tablet 25 mg PO BIDPRN PRN dizziness 03/24/24
omeprazole 20 mg tablet,delayed release 20 mg PO DAILY 03/24/24
valsartan 320 mg-hydrochlorothiazide 25 mg tablet 1 tab PO DAILY 03/24/24
Review of Systems
-
A 12 point ROS was completed and negative except as noted: Yes
Constitutional: Denies Fever or Chills
Respiratory: Denies Cough or Trouble Breathing
Cardiac: Denies Chest Pain or Palpitations
Physical Exam
Vital Signs
Vital Signs
Temp Pulse Resp BP Pulse Ox
97.8 F 67 16 121/67 98
03/24/24 09:18 03/24/24 12:00 03/24/24 12:00 03/24/24 12:00 03/24/24 12:00
Physical Exam
General: Comfortable and Conversant
HEENT: Anicteric and Moist mucous membranes
Respiratory: Clear and Non Labored Respirations
Cardiac: S1/S2 and Regular Rhythm
GI: Soft and Non Tender
Musculoskeletal: No Clubbing and No Cyanosis
Skin: Warm and Dry
Neuro: Awake, Alert, Oriented and No Motor Deficits
Psych: Calm
Laboratory Results
-
03/24/24 10:41
03/24/24 10:41
Data Reviewed
-
Lab Data: Labs Reviewed by me
Old Records: Reviewed
Impression/Plan
-
Persistent Vertigo
-Patient refusing vestibular therapy until she has the cervical spine MRI which is scheduled as outpatient this weekend
-Continue scopolamine patch
-Continue meclizine and diazepam prn
Cervical Spine Degenerative Disc Disease
-Cervical spine MRI scheduled as outpatient for Mar 28
-Add lidocaine patch
-Continue Tylenol
Essential Hypertension
-Continue valsartan
-Hold HCTZ due to mild hypokalemia
Hyperlipidemia
Continue Crestor
Anxiety
-Continue sertraline
Asthma, no acute exacerbation
-Continue Dulera
DVT proph: Lovenox
Code Status: Full Code
Dispo: Planning for SNF - Case Management involved
--- NOTE | 2024-03-24 13:01 | W.PN.UPDATE ---
Update Note
Progress Note Update
This is addendum to the H&P written by Maribel Stanford on 03/24/2024. Patient seen and examined independently with PA.
78-year-old female past medical history ofhypertension, asthma, GERD, chronic right neck pinched nerve, here for persistent vertigo and posterior neck pain.
She was admitted from 02/19 to 02/22 for brain fog and dizziness after wasp bite. She continues to have persistent symptoms since the wasp bite with worsening of the vertigo particularly with head movements and ongoing neck pain. She is supposed to
see orthopedics for steroid injection and MRI cervical spine this upcoming week.
Patient likely has long-term vertigo as a sequelae from wasp bite. She also has cervical disc disease related pain.
Given Valium, scopolamine patch with some improvement. Patient taking meclizine with some improvement. Added Tylenol, increase meclizine as needed dosage, lidocaine patch.
Patient and daughter refusing vestibular therapy until MRI performed. PT/OT, case management for rehab placement. Outpatient follow-up with Ortho for MRI cervical spine and steroid injection.
[2024-03-24] MEDS: ULTRAM 50 MG PO (13:23)
--- NOTE | 2024-03-24 15:12 | PTCARENOTE ---
pt admitted from ED AOx3. Pt reports acute on chronic pain D/T Pinched nerve in right upper back. LCTA on RA. regular heart sounds. abd round obese. cont B&B. skin CDI trace B/L pedal edema. spouse at bedside. CB in reach.
[2024-03-24] MEDS: ANTIVERT 25 MG PO (16:20)
[2024-03-24] MEDS: LIDOCAINE 4% PATCH 1 PATCH TOPICAL (16:20)
[2024-03-24] MEDS: CRESTOR 20 MG PO (18:11)
[2024-03-24] MEDS: SYMBICORT 80/4.5 MCG INHALER 2 PUFF INH (20:00)
[2024-03-24] MEDS: AMBIEN 10 MG PO (20:26)
[2024-03-24] MEDS: PEPCID 20 MG PO (20:26)
[2024-03-24] MEDS: MELATONIN 5 MG PO (23:29)
[2024-03-25] MEDS: TYLENOL 650 MG PO (05:20)
[2024-03-25 07:36] LABS: Blood Urea Nitrogen 22 mg/dl (7-17); Carbon Dioxide 28 mmol/L (22-30); Chloride 102 mmol/L (98-107); Estimated Creatinine Clearance 47 ml/min; Glucose 115 mg/dl (70-99); Potassium 3.5 mmol/L (3.5-5.1); Sodium 139 mmol/L (135-145); eGFR 52.08
[2024-03-25] MEDS: QUESTRAN 2 GRAM PO (08:00)
[2024-03-25] MEDS: LIDOCAINE 4% PATCH 1 PATCH TOPICAL (08:00)
[2024-03-25] MEDS: PROTONIX 40 MG PO (08:02)
[2024-03-25] MEDS: ANTIVERT 25 MG PO (08:02)
[2024-03-25] MEDS: ZOLOFT 50 MG PO (08:03)
[2024-03-25 08:08] VITALS: BP 122/62
[2024-03-25] MEDS: SYMBICORT 80/4.5 MCG INHALER 2 PUFF INH (08:39)
[2024-03-25 08:40] VITALS: BP 111/73; BP 122/62; BP 97/64; PULSE 75; PULSE 84
[2024-03-25] MEDS: VALIUM 2 MG PO (08:48)
[2024-03-25 09:50] VITALS: BP 111/73; BP 122/62; BP 97/64; PULSE 75; PULSE 84
--- NOTE | 2024-03-25 10:54 | W.PN.HOSP.TC ---
Today's Communication/Plan
-
monitor vitals
see plan
outpatient cscpine MRI
scopalamine patch
valium and meclizine prn
vestibular therapy when family agreeable
did well with PT this morning
Hold BP meds for now
Discharge today
Discussed with daughter
time of discharge 38 minutes
Assessment / Plan
Assessment / Plan
General: Comfortable and Conversant
HEENT: Anicteric and Moist mucous membranes
Respiratory: Clear and Non Labored Respirations
Cardiac: S1/S2 and Regular Rhythm
GI: Soft and Non Tender
Neuro: Awake, Alert, Oriented and No Motor Deficits
Psych: Calm
Persistent Vertigo likely BPPPV
no spine tenderness or UE weakness or tingling. Patient neck pain is right lateral and not on the spine.
has no neurological signs currently
-Patient refusing vestibular therapy until she has the cervical spine MRI which is scheduled as outpatient this weekend
-Continue scopolamine patch
-Continue meclizine and diazepam prn
Patient is currently feeling a lot better after medical management and now PT/OT recommending home. Discussed with daughter and she is okay taking patient home with outpatient MRI
Brain MRI done on 02/20 was negative for CVA
Cervical Spine Degenerative Disc Disease
-Cervical spine MRI scheduled as outpatient for Mar 28
-Add lidocaine patch
-Continue Tylenol
Essential Hypertension
does have some hypotension and normotension; can restart meds if BP is >140/90
-hold valsartan
-Hold HCTZ due to mild hypokalemia
renal insufficiency
denies dysuria
hold valsartan
repeat BMP next week with pcp
Hyperlipidemia
Continue Crestor
Anxiety
-Continue sertraline
Asthma, no acute exacerbation
-Continue Dulera
DVT proph: Lovenox
Code Status: Full Code
Anticipated Discharge: Today
Subjective/Interval History
-
Date of Service: March 25, 2024
denies pain, feeling better this morning
Objective Data
-
Labs:
Laboratory Results
03/25/24
06:34
Sodium 139
Potassium 3.5
Chloride 102
Carbon Dioxide 28
BUN 22 H
Creatinine 1.1 H
Glucose 115 H
Calcium 9.0
Vital Signs:
Vital Signs
Temp Pulse Resp BP Pulse Ox
98.2 F 92 18 122/62 95
03/25/24 08:08 03/25/24 08:42 03/25/24 08:42 03/25/24 08:08 03/25/24 08:42
I&O
03/24/24 03/25/24 03/26/24
06:59 06:59 06:59
Intake Total 720 / 720 480 / 480
Balance 720 / 720 480 / 480
--- NOTE | 2024-03-25 11:00 | CM ---
Spoke with patient and daughter bedside.
PT/OT recommending outpatient therapy.
Discussed respite with patient and daughter and costs, most facilities unable to accommodate due to short amount of time requested.
Discussed private a caregivers and home care.
Daughter declined home care at this time.
Daughter and patient do not want PT/OT or vestibular therapy until MRI completed.
[facility] Scheduled for Friday per daughter.
Resources for private care givers, services to assist, outpatient vestibular care and nursing homes in the area provided.
Daughter will transport home.
Plan: home no needs.
--- NOTE | 2024-03-25 11:15 | W.DCSUMMARY ---
Discharge Summary
Discharge Data
Date of Admission: 03/24/24
Date of Discharge: 03/25/24
-
Pending Results: No
Hospital Course
78-year-old female with past medical history of essential hypertension, cervical spine degenerative disc disease, asthma, anxiety, hyperlipidemia came to the hospital with persistent vertigo. Patient already had outpatient cervical spine MRI
scheduled however she came due to persistent vertigo. She recently had multiple scans including MRI brain which was negative for CVA. Initially plan was for patient to possibly go to rehab due to her vertigo however her symptoms continue to
improve with scopolamine and as needed meclizine and Valium. The day of discharge, her symptoms continue to be markedly improve and she was able to work better with physical therapy and was recommended for discharge home. While she was
hospitalized, her blood pressure was soft and was mainly in normotensive range so she was instructed to hold her hydrochlorothiazide and valsartan. She was instructed to check blood pressure at home and to restart BP meds once her blood pressure is
greater than 140/90. She also had some renal insufficiency for which she was started to get repeat BMP done outpatient.
Discharge Plan
-
Patient Disposition: Home (Routine Discharge)
Discharge Diagnosis/Procedures: Vertigo
Hypotension
Renal insufficiency
Diet: As tolerated
Activity: As tolerated
Driving Restrictions: Not until seen by your Dr
Bathing Restrictions: None
Blood Work: BMP next week with primary care provider
Activity Restrictions/Additional Instructions:
Follow-up with orthopedics outpatient
Restart blood pressure medication when blood pressure is greater than 140/90
Referrals:
Chela White CRNP [Family Provider] - in less than 1 week
Prescriptions:
New
lidocaine 4 % Adhesive Patch,Medicated
1 patch topical DAILY Qty: 30 0RF
acetaminophen 325 mg Tablet
650 mg PO Q4HPRN PRN (Reason: mild pain/ fever>100.5F) Qty: 0 0RF
diazepam 2 mg Tablet
2 mg PO TIDPRN PRN (Reason: intractable vertigo) Qty: 15 0RF
scopolamine base 1 mg over 3 days Patch 3 Day
1 patch transdermal Q72H Qty: 2 0RF
Continued
levalbuterol tartrate [Xopenex HFA] 45 mcg/actuation Hfa Aerosol Inhaler
2 inh INHALATION R Q6HPRN PRN (Reason: SOB)
zolpidem 10 mg tablet
10 mg PO HS
Patient Comments:
02/20/2024: last filled 11/24/23, 90 tabs for 90 days
sertraline 50 mg tablet
50 mg PO DAILY
rosuvastatin 20 mg tablet
20 mg PO QPM
Dulera 100-5 mcg/actuation HFA aerosol inhaler
2 puff INHALATION R BID
Thera-Tabs Tablet
1 tab PO DAILY
famotidine [Pepcid] 40 mg Tablet
40 mg PO HS
cholestyramine (with sugar) 4 gram Powder In Packet
2 - 4 g PO DAILY
cholecalciferol (vitamin D3) [Vitamin D3] 25 mcg (1,000 unit) Tablet
25 mcg PO DAILY
omeprazole 20 mg Tablet,Delayed Release (Dr/Ec)
20 mg PO DAILY
Changed
meclizine 25 mg Tablet
25 mg PO TIDPRN PRN (Reason: dizziness) Qty: 0 0RF
Held
valsartan-hydrochlorothiazide 320-25 mg Tablet
1 tab PO DAILY
Hold Instructions: resume when BP >140/90
Discharge Orders:
Discharge Patient (As Directed); Ordered 03/25/24
Ordered By: Jm Hughes
Discharge Date and Time
Discharge Date/Time: 03/25/24 12:40
Print Language: YORUBA
[2024-03-25 12:18] VITALS: BP 103/73
== END 2024-03-25 12:40 | disposition home or self-care (01) ==
LOC: 1 ACUTE 13:01
PROVIDERS: Physician Assistant Medical; ADMITTING PHYSICIAN Hospitalist; ATTENDING PHYSICIAN Internal Medicine; EMERGENCY PHYSICIAN Student in an Organized Health Care Education/Training Program; FAMILY PHYSICIAN Nurse Practitioner
DX: R42 Dizziness and giddiness (principal); I10 Essential (primary) hypertension; K21.9 Gastro-esophageal reflux disease without esophagitis; K58.9 Irritable bowel syndrome, unspecified; J45.909 Unspecified asthma, uncomplicated; E78.5 Hyperlipidemia, unspecified; M50.30 Other cervical disc degeneration, unspecified cervical region; N28.9 Disorder of kidney and ureter, unspecified; I95.9 Hypotension, unspecified; F41.9 Anxiety disorder, unspecified; Z98.1 Arthrodesis status; Z88.5 Allergy status to narcotic agent; Z91.041 Radiographic dye allergy status; Z79.51 Long term (current) use of inhaled steroids; Z90.49 Acquired absence of other specified parts of digestive tract
CPT/HCPCS: 80048; 83735; 85025; 93005; 94640; 97116; 97166; 99284; G0378

== ENCOUNTER → 2024-03-28 06:54 | Outpatient (REF) | payer MEDICARE, BC, SELFPAY | LOC: MRI 3T 06:54 | PROVIDERS: ATTENDING PHYSICIAN Physical Medicine & Rehabilitation; FAMILY PHYSICIAN Nurse Practitioner | DX: M54.12 Radiculopathy, cervical region (principal) | CPT/HCPCS: 72141 ==

== ENCOUNTER → 2024-03-31 12:45 | Outpatient (REF) | payer MEDICARE, BC, SELFPAY ==
[2024-03-31 14:00] LABS: % Basophils 0.3 % (0-2); % Eosinophils 1.3 % (0-6); % Immature Granulocytes 1.3 % (0-0.5); % Monocytes 6.6 % (1.7-9.3); % Neutrophils 71.5 % (42.2-75.2); Absolute Eosinophils 0.1 10^3/uL (0-0.7); Absolute Immature Granulocytes 0.1 10^3/uL (0-0.05); Absolute Lymphocytes 1.2 10^3/uL (1.2-3.4); Absolute Monocytes 0.4 10^3/uL (0.1-0.6); Absolute Neutrophils 4.6 10^3/uL (1.4-6.5); Hematocrit 38.7 % (37.0-47.0); Hemoglobin 13.7 g/dL (12.0-16.0); Mean Corp Hgb Conc. 35.4 g/dL (33.0-37.0); Mean Corpuscular Hgb 29.8 pg (27.0-31.0); Mean Corpuscular Volume 84.3 fL (81.0-99.0); Nucleated Red Blood Cells % 0 %; Platelet Count 124 10^3/uL (130-400); Red Blood Cell Count 4.59 10^6/uL (4.20-5.40); Red Cell Dist. Width 11.9 % (11.5-14.5); White Blood Cell Count 6.4 10^3/uL (4.8-10.8)
[2024-03-31 14:51] LABS: Blood Urea Nitrogen 11 mg/dl (7-17); Calcium 9.5 mg/dl (8.4-10.2); Carbon Dioxide 26 mmol/L (22-30); Chloride 108 mmol/L (98-107); Glucose 111 mg/dl (70-99); Potassium 3.6 mmol/L (3.5-5.1); Sodium 147 mmol/L (135-145); eGFR > 60.00
[2024-04-02 23:35] LABS: White-Faced Hornet <0.10 kU/L (<=0.34); Yellow Jacket Venom <0.10 kU/L (<=0.34); Yellow-Faced Hornet <0.10 kU/L (<=0.34)
== END ==
LOC: REG 12:45
PROVIDERS: ATTENDING PHYSICIAN Internal Medicine; FAMILY PHYSICIAN Hospitalist
DX: R53.83 Other fatigue (principal); R42 Dizziness and giddiness; T63.441A Toxic effect of venom of bees, accidental (unintentional), initial encounter
CPT/HCPCS: 36415; 80048; 83520; 85025; 86003

== ENCOUNTER → 2024-04-10 12:35 | Outpatient (REF) | payer MEDICARE, BC, SELFPAY | LOC: PAVMRI 12:35 | PROVIDERS: ATTENDING PHYSICIAN Physician Assistant; FAMILY PHYSICIAN Nurse Practitioner | DX: M54.14 Radiculopathy, thoracic region (principal); M54.9 Dorsalgia, unspecified | CPT/HCPCS: 72146 ==

== ENCOUNTER 2024-05-01 13:13 | Emergency (ER) | payer MEDICARE, BC, SELFPAY ==
[2024-05-01 13:21] VITALS: BP 122/71
[2024-05-01] MEDS: VALIUM 2 MG PO (16:06)
[2024-05-01 16:08] VITALS: BP 113/75
[2024-05-01 16:19] LABS: % Basophils 0.2 % (0-2); % Eosinophils 0.2 % (0-6); % Immature Granulocytes 0.7 % (0-0.5); % Lymphocytes 20.9 % (20.5-51.1); % Monocytes 6.1 % (1.7-9.3); % Neutrophils 71.9 % (42.2-75.2); Absolute Immature Granulocytes 0.1 10^3/uL (0-0.05); Absolute Lymphocytes 1.8 10^3/uL (1.2-3.4); Absolute Monocytes 0.5 10^3/uL (0.1-0.6); Absolute Neutrophils 6.3 10^3/uL (1.4-6.5); Hematocrit 36.9 % (37.0-47.0); Hemoglobin 13.4 g/dL (12.0-16.0); Mean Corp Hgb Conc. 36.3 g/dL (33.0-37.0); Mean Corpuscular Hgb 30.3 pg (27.0-31.0); Mean Corpuscular Volume 83.5 fL (81.0-99.0); Mean Platelet Volume 9.8 fL (7.4-10.4); Nucleated Red Blood Cells % 0 %; Platelet Count 143 10^3/uL (130-400); Red Blood Cell Count 4.42 10^6/uL (4.20-5.40); White Blood Cell Count 8.8 10^3/uL (4.8-10.8)
[2024-05-01 16:39] LABS: NT-proBNP 353 pg/ml; Troponin I < 0.012 ng/ml
[2024-05-01 17:17] LABS: ALT (SGPT) 22 U/L (0-35); AST (SGOT) 27 U/L (14-36); Albumin 4.5 g/dl (3.5-5.0); Alkaline Phosphatase 61 U/L (38-126); Blood Urea Nitrogen 15 mg/dl (7-17); Calcium 9.4 mg/dl (8.4-10.2); Carbon Dioxide 28 mmol/L (22-30); Chloride 100 mmol/L (98-107); Glucose 106 mg/dl (70-99); Lipase 135 U/L (23-300); Potassium 2.7 mmol/L (3.5-5.1); Sodium 138 mmol/L (135-145); Total Bilirubin 1.5 mg/dl (0.2-1.3); Total Protein 6.6 g/dl (6.3-8.2); eGFR > 60.00
--- NOTE | 2024-05-01 17:43 | ED.GENMED ---
History of Present Illness
General
Chief Complaint: Back Pain
Source: patient
Exam Limitations: none
Time Seen by Provider: 05/01/24 15:27
Nursing documentation reviewed up to this point in time: agreed with
History of Present Illness
History of Present Illness:
pt is a 78 y/o F with h/o chronic bronchitis, bonrchiolitis followed by [facility]
htn, anxiety, cervical disc disease
has had ongoing chronic neck pain for a while, had MRI 1 mo ago showing multilevel ddd, is due to see specialist next week
says she was vaccumming an dfelt something in the back of her neck that was uncomfortable
since being here, she now feels much better
neve rhad dizziness, nausea, vomiting, vision changes, weakness or numbness in arms or legs
she says she is now really here becuase of chest tightness and SOB that she has hd for a week or so
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
when she gets flare ups, she gets medrol dose pakk so she is here requesting that
she has not had fever, chils, sore throat, vomiting, pleuritic pain
she has had a cough mildly as well
uses dulera and albuterol inhalers
Past History
Past History
ED Past Medical History: Asthma, GERD and HTN
ED Past Surgical History: Appendectomy, Cholecystectomy, Orthopedic and Tonsilectomy
Patient has exhibited threatening behavior?: No
PSI?: No
Social History
Tobacco: Non-smoker
Alcohol: None
Drug: None
Personal:
Living: with family
Review of Systems
Review of Systems
Allergies reviewed?: Yes
All Other Systems: Not applicable
Phy Exam
Physical Exam
Physical Exam:
GENERAL: Alert , no distress but very anxious, grabbing at her chest, tachypneic/tearful
head : ncat
EYE: pupils equal and reactive
NECK: Supple, nontender, full rom
ENT: o/p clr, mmm.
CARDIAC: Regular rate and rhythm .no murmur
LUNGS: Clear breath sounds bilaterally, no acute respiratory distress, no wheezes/rales/rhonchi
ABDOMEN: Soft, without focal tenderness, no r/g, no cvat, normal bowel sounds
NEUROLOGICAL: Alert and oriented, no focal neuro deficits, cn intact, 5/5 strength, senstaion
SKIN: Warm and dry, skin intact.
MUSCULOSKELETAL: No edema, well perfused. neg nellie's sign
PSYCH very anixous
Course
Orders/Labs/Results
Orders:
Orders
05/01/24 15:55
Diazepam [Valium] 2 mg PO NOW STA
CR Cervical Spine 2 or 3 Vw Urgent
Reason For Exam: neck pain
05/01/24 15:56
Electrocardiogram (*1) Urgent
Reason for Study: Shortness of Breath
EKG- Treatment ONCE
CR Chest - 2 Views Urgent
Comment:
Reason For Exam: shortness of breath
05/01/24 16:03
Complete Blood Count/With Diff Urgent
Comprehensive Metabolic Panel Urgent
Creatine Phosphokinase Urgent
Comment: ADD ON
Lipase Urgent
Magnesium Urgent
Comment: ADD ON
NT-proBNP Urgent
Troponin I Urgent
05/01/24 17:21
Add On- LAB Urgent
Tests Added?: magnesium
05/01/24 17:22
Add On- LAB Urgent
Tests Added?: cpk
05/01/24 18:06
Potassium Chloride [KCl] 40 meq PO NOW STA
05/01/24 18:19
Potassium Chloride [KCl] 20 meq 0.9% Sodium Chloride 150 ml [Nss] 150 ml IV NOW
Abnormal Lab Results
05/01/24
16:03
Hct 36.9 L %
(37.0-47.0)
Abs Immat Gran (auto) 0.1 H 10^3/uL
(0-0.05)
Immature Gran % 0.7 H %
(0-0.5)
Potassium 2.7 L* mmol/L
(3.5-5.1)
Glucose 106 H mg/dl
(70-99)
Total Bilirubin 1.5 H mg/dl
(0.2-1.3)
05/01/24 16:03
05/01/24 16:03
Vital Signs
Initial and Last Documented VS:
Initial Vital Signs
Temp Pulse Resp BP Pulse Ox
36.9 C 80 18 122/71 99
05/01/24 13:21 05/01/24 13:21 05/01/24 13:21 05/01/24 13:21 05/01/24 13:21
Last Documented Vital Signs
Temp Pulse Resp BP Pulse Ox
36.9 C 65 16 118/73 96
05/01/24 13:21 05/01/24 18:00 05/01/24 18:00 05/01/24 18:00 05/01/24 18:00
MDM/Problems Addressed
Differential Diagnosis Includes:
chroinc nekc pain, disc disease, anxiety, chest pain, chf, bronchilitis,
MDM/Problems Addressed:
78 y/o F
chronic neck apin
bronchiolitis
here for multiple reasons
she was vaccuming and then felt pain in her nekc hich has subsided now and feels like her chronic neck pain which has been w/u with vascular study in 01/2024 which was neg and MRI 1 mo ago showing cervical disc disease
no signs cauda equina
also c/o sob which is chronic as well, related to bronchiolitis and she says she sees pulmonary
and she is requesting steroids which help her in thi cases
she has not had fever/chills, chest pain
she is very anxious
her w/u here showed normal nonischemic EKG, neg trop, clear cxr indep reivewed by me, cervical xray with DJD
k of 2.7
normal mag
on hctz
d/w ed attending
recommends admission for IV repletion
but pt declines
i wrote for iv and oral dose and d/w [facility] consultant PCP about f/u
but pt delines IV dose and wants to go home
aware of risks
will write rx for kcl bid x 5 days
pcp will arrange f/u.
*Critical Care Note
Total Time (30-74mins, 75-104mins- exclusive of procedures): Not Applicable
ED Attending Note
-
Portions of this chart may have been created with voice recognition software.� Occasional wrong word or��sound alike� substitutions may have occurred due to the inherent limitations of voice recognition software.
Discharge Plan
Departure
Patient Disposition: Home (Routine Discharge)
Date of Disposition: 05/01/24
Time of Disposition: 18:27
Patient with high blood pressure during this ER visit?: No
Condition: Fair
Covid-19: Not Applicable
Discharge Problem:
Hypokalemia, Chronic neck pain, Anxiety
Instructions: Hypokalemia
Prescriptions:
New
potassium chloride 20 mEq packet
20 meq PO BID 5 Days Qty: 30 0RF
methylprednisolone [Medrol (Shaan)] 4 mg tablets,dose pack
See Rx Instructions .ROUTE .COMPLEX Qty: 21 0RF
Rx Instructions:
orally per package directions
No Action
levalbuterol tartrate [Xopenex HFA] 45 mcg/actuation Hfa Aerosol Inhaler
2 inh INHALATION R Q6HPRN PRN (Reason: SOB)
zolpidem 10 mg tablet
10 mg PO HS
Patient Comments:
02/20/2024: last filled 11/24/23, 90 tabs for 90 days
sertraline 50 mg tablet
50 mg PO DAILY
rosuvastatin 20 mg tablet
20 mg PO QPM
Dulera 100-5 mcg/actuation HFA aerosol inhaler
2 puff INHALATION R BID
Thera-Tabs Tablet
1 tab PO DAILY
famotidine [Pepcid] 40 mg Tablet
40 mg PO HS
cholestyramine (with sugar) 4 gram Powder In Packet
2 - 4 g PO DAILY
valsartan-hydrochlorothiazide 320-25 mg Tablet
1 tab PO DAILY
cholecalciferol (vitamin D3) [Vitamin D3] 25 mcg (1,000 unit) Tablet
25 mcg PO DAILY
omeprazole 20 mg Tablet,Delayed Release (Dr/Ec)
20 mg PO DAILY
lidocaine 4 % Adhesive Patch,Medicated
1 patch topical DAILY Qty: 30 0RF
acetaminophen 325 mg Tablet
650 mg PO Q4HPRN PRN (Reason: mild pain/ fever>100.5F) Qty: 0 0RF
diazepam 2 mg Tablet
2 mg PO TIDPRN PRN (Reason: intractable vertigo) Qty: 15 0RF
scopolamine base 1 mg over 3 days Patch 3 Day
1 patch transdermal Q72H Qty: 2 0RF
meclizine 25 mg Tablet
25 mg PO TIDPRN PRN (Reason: dizziness) Qty: 0 0RF
Referrals:
Chela White CRNP [Family Provider] - Follow up in 2-3 days
Activity Restrictions/Additional Instructions:
WE WOULD HAVE PREFERRED TO KEEP YOU FOR REPLETION OF YOUR POTASSIUM BUT YOU DID NOT WISH TO STAY
TAKE POTASSIUM TWICE A DAY STARTING TOMORROW FOR 5 DAYS
FOLLOW UP WITH YOUR DOCTOR NEXT WEEK
RETURN FOR ANY CONCERNS
ALSO I SENT A PRESCRIPTION FOR YOUR STEROID PACK TO YOUR PHARMACY
Interventions
Interventions:
*Risk Screen - Suicide Last Done: 05/01/24 13:21
*General Assessment Last Done: 05/01/24 13:21
*Neglect/Abuse Screening Last Done: 05/01/24 13:21
ED- Fall Risk Assessment Last Done: 05/01/24 18:38
*ED COVID-19 Vaccine History Last Done: 05/01/24 13:21
*Nursing Disposition Last Done: 05/01/24 18:38
ED-Musculoskeletal Assessment Last Done: 05/01/24 14:27
Discharge Date and Time
Discharge Date/Time: 05/01/24 18:39
Print Language: POLISH
[2024-05-01 17:54] LABS: Creatine Phosphokinase 70 U/L (30-135); Magnesium 1.9 mg/dl (1.6-2.3)
[2024-05-01 18:00] VITALS: BP 118/73
[2024-05-01] MEDS: KCL 40 MEQ PO (18:28)
== END 2024-05-01 18:39 | disposition home or self-care (01) ==
LOC: EMR 13:13
PROVIDERS: Physician Assistant; EMERGENCY PHYSICIAN Emergency Medicine; FAMILY PHYSICIAN Nurse Practitioner
DX: E87.6 Hypokalemia (principal); M54.2 Cervicalgia; F41.9 Anxiety disorder, unspecified; R07.89 Other chest pain; R06.02 Shortness of breath; R19.7 Diarrhea, unspecified; J21.9 Acute bronchiolitis, unspecified; R06.82 Tachypnea, not elsewhere classified; M50.90 Cervical disc disorder, unspecified, unspecified cervical region; G89.29 Other chronic pain; I10 Essential (primary) hypertension; K21.9 Gastro-esophageal reflux disease without esophagitis; J45.909 Unspecified asthma, uncomplicated; Z90.49 Acquired absence of other specified parts of digestive tract; Z88.5 Allergy status to narcotic agent; Z91.041 Radiographic dye allergy status
CPT/HCPCS: 99283; 71046; 72040; 80053; 82550; 83690; 83735; 83880; 84484; 85025; 93005

== ENCOUNTER 2024-05-02 12:43 | Emergency (ER) | payer MEDICARE, BC, SELFPAY ==
[2024-05-02 12:50] VITALS: BP 136/86
[2024-05-02 14:16] LABS: % Basophils 0.3 % (0-2); % Eosinophils 0.3 % (0-6); % Immature Granulocytes 0.8 % (0-0.5); % Lymphocytes 18.8 % (20.5-51.1); % Monocytes 6.4 % (1.7-9.3); % Neutrophils 73.4 % (42.2-75.2); Absolute Immature Granulocytes 0.1 10^3/uL (0-0.05); Absolute Lymphocytes 1.3 10^3/uL (1.2-3.4); Absolute Monocytes 0.5 10^3/uL (0.1-0.6); Absolute Neutrophils 5.2 10^3/uL (1.4-6.5); Hematocrit 38.5 % (37.0-47.0); Hemoglobin 13.7 g/dL (12.0-16.0); Mean Corp Hgb Conc. 35.6 g/dL (33.0-37.0); Mean Corpuscular Hgb 30.1 pg (27.0-31.0); Mean Corpuscular Volume 84.6 fL (81.0-99.0); Mean Platelet Volume 10.2 fL (7.4-10.4); Nucleated Red Blood Cells % 0 %; Platelet Count 123 10^3/uL (130-400); Red Blood Cell Count 4.55 10^6/uL (4.20-5.40); Red Cell Dist. Width 12.2 % (11.5-14.5); White Blood Cell Count 7.1 10^3/uL (4.8-10.8)
[2024-05-02 14:37] LABS: ALT (SGPT) 21 U/L (0-35); AST (SGOT) 28 U/L (14-36); Albumin 4.4 g/dl (3.5-5.0); Alkaline Phosphatase 57 U/L (38-126); Blood Urea Nitrogen 15 mg/dl (7-17); Carbon Dioxide 26 mmol/L (22-30); Chloride 104 mmol/L (98-107); Glucose 107 mg/dl (70-99); Magnesium 1.9 mg/dl (1.6-2.3); Sodium 139 mmol/L (135-145); Total Bilirubin 1.1 mg/dl (0.2-1.3); Total Protein 6.6 g/dl (6.3-8.2); eGFR > 60.00
--- NOTE | 2024-05-02 14:37 | ED.GENMED ---
History of Present Illness
<Mindy Bucio PA-C - Last Filed: 05/02/24 19:50>
General
Chief Complaint: Abnormal Lab Value
Source: patient
Exam Limitations: none
Time Seen by Provider: 05/02/24 13:36
Nursing documentation reviewed up to this point in time: agreed with
History of Present Illness
History of Present Illness:
Patient is a 78-year-old female presenting to the emergency department for evaluation of low potassium found on blood work yesterday. Patient seen in the emergency department yesterday due to some chronic neck pain and found to have a potassium of
2.7 on lab work. At that time�admission was advised for potassium repletion although patient declined. Patient was given 40 mEq of oral potassium as she also declined IV potassium.
Patient states that her daughter recommended she come back to the emergency department for admission as recommended. Her PCP also recommended that she return to the emergency department given low potassium levels.
Patient denies any chest pain or worsening shortness of breath. Denies any palpitations, back pain, or lower extremity swelling. Patient denies any recent GI losses including vomiting/diarrhea. She has been dealing with some chronic shortness of
breath related to bronchiolitis for which she follows with pulmonary. No fevers, chills.
Past History
<Mindy Bucio PA-C - Last Filed: 05/02/24 19:50>
Past History
ED Past Medical History: Asthma, GERD and HTN
ED Past Surgical History: Appendectomy, Cholecystectomy, Orthopedic and Tonsilectomy
Patient has exhibited threatening behavior?: No
PSI?: No
Social History
Tobacco: Non-smoker
Alcohol: None
Drug: None
Personal:
Living: with family
Review of Systems
<Mindy Bucio PA-C - Last Filed: 05/02/24 19:50>
Review of Systems
Allergies reviewed?: Yes
All Other Systems: ROS reviewed and negative except as documented in HPI and ROS
Phy Exam
<Mindy Bucio PA-C - Last Filed: 05/02/24 19:50>
Physical Exam
Physical Exam:
Vitals: Mildly hypertensive, otherwise vital signs stable. Afebrile
General: Patient is well appearing, no acute distress
Skin: Warm and dry, no rashes or lesions
Head: Normocephalic, atraumatic
Eyes: Sclera nonicteric. EOMs intact. No nystagmus.
Throat: Protecting airway
Neck: Normal ROM, no cervical spine tenderness, no meningismus
Cardiac: Regular rate and rhythm, no murmurs.
Pulm: Normal respiratory effort, no wheezes, rales, rhonchi heard on exam. O2 saturation 98 on room air
Abdomen: Abdomen soft. No abdominal tenderness.
Extremities: No evidence of cyanosis or edema. Palpable DP pulses
Neuro: AAOx3. No focal deficits. Ambulating with steady gait.
Psychiatric: Normal affect.
Course
<Mindy Bucio PA-C - Last Filed: 05/02/24 19:50>
Orders/Labs/Results
Orders:
Orders
05/02/24 13:52
Electrocardiogram (*1) Urgent
Reason for Study: Other
Other Reason for Exam: hypokalemia
EKG- Treatment ONCE
05/02/24 14:00
Complete Blood Count/With Diff Urgent
Comprehensive Metabolic Panel Urgent
Magnesium Urgent
05/02/24 15:47
Dexamethasone [Decadron] 10 mg PO NOW STA
05/02/24 16:01
CT Chest PE Study Urgent
Comment:
Reason For Exam: shortness of breath
0.9% Sodium Chloride 500 ml [Nss] 500 ml IV BOLUS
05/02/24 16:19
Diphenhydramine [Benadryl] 50 mg IV NOW STA
Hydrocortisone Sod Succinate [Solu-Cortef] 200 mg IV NOW STA
Abnormal Lab Results
05/02/24
14:00
Plt Count 123 L 10^3/uL
(130-400)
Abs Immat Gran (auto) 0.1 H 10^3/uL
(0-0.05)
Immature Gran % 0.8 H %
(0-0.5)
Lymphocytes % 18.8 L %
(20.5-51.1)
Glucose 107 H mg/dl
(70-99)
05/02/24 14:00
05/02/24 14:00
Vital Signs
Initial and Last Documented VS:
Initial Vital Signs
Temp Pulse Resp BP Pulse Ox
98.3 F 74 18 136/86 98
05/02/24 12:50 05/02/24 12:50 05/02/24 12:50 05/02/24 12:50 05/02/24 12:50
Last Documented Vital Signs
Temp Pulse Resp BP Pulse Ox
98.3 F 74 18 134/68 98
05/02/24 12:50 05/02/24 12:50 05/02/24 12:50 05/02/24 17:00 05/02/24 19:07
<Alexandra Odell, DO - Last Filed: 05/02/24 17:43>
Orders/Labs/Results
Orders:
Orders
05/02/24 13:52
Electrocardiogram (*1) Urgent
Reason for Study: Other
Other Reason for Exam: hypokalemia
EKG- Treatment ONCE
05/02/24 14:00
Complete Blood Count/With Diff Urgent
Comprehensive Metabolic Panel Urgent
Magnesium Urgent
05/02/24 15:47
Dexamethasone [Decadron] 10 mg PO NOW STA
05/02/24 16:01
CT Chest PE Study Urgent
Comment:
Reason For Exam: shortness of breath
0.9% Sodium Chloride 500 ml [Nss] 500 ml IV BOLUS
05/02/24 16:19
Diphenhydramine [Benadryl] 50 mg IV NOW STA
Hydrocortisone Sod Succinate [Solu-Cortef] 200 mg IV NOW STA
Abnormal Lab Results
05/02/24
14:00
Plt Count 123 L 10^3/uL
(130-400)
Abs Immat Gran (auto) 0.1 H 10^3/uL
(0-0.05)
Immature Gran % 0.8 H %
(0-0.5)
Lymphocytes % 18.8 L %
(20.5-51.1)
Glucose 107 H mg/dl
(70-99)
05/02/24 14:00
05/02/24 14:00
Vital Signs
Initial and Last Documented VS:
Initial Vital Signs
Temp Pulse Resp BP Pulse Ox
98.3 F 74 18 136/86 98
05/02/24 12:50 05/02/24 12:50 05/02/24 12:50 05/02/24 12:50 05/02/24 12:50
Last Documented Vital Signs
Temp Pulse Resp BP Pulse Ox
98.3 F 74 18 134/68 98
05/02/24 12:50 05/02/24 12:50 05/02/24 12:50 05/02/24 17:00 05/02/24 19:07
<Mindy Bucio PA-C - Last Filed: 05/02/24 19:50>
MDM/Problems Addressed
Differential Diagnosis Includes:
Not limited to: Hypokalemia, hypomagnesemia, medication side effect, acute dehydration, etc.
MDM/Problems Addressed:
Patient is a 78-year-old female presenting with concerns of hypokalemia found on lab work yesterday although declined admission at that time. Patient given 40 mEq potassium p.o. yesterday. Patient essentially asymptomatic although does note some
shortness of breath which is somewhat chronic. She follows with pulmonology. Patient mildly hypertensive on arrival, otherwise stable vital signs. She is not tachypneic. She is O2 saturation 98 on room air. Physical exam as above. Will check
CBC, CMP, magnesium. Will obtain EKG. Will monitor and reassess
Update 16:15: Labs noted. Today potassium of 4. Magnesium of 1.9. EKG shows normal sinus rhythm without any acute ischemic changes. No indication for admission. However�on reassessment patient is endorsing worsening shortness of breath. She is
demanding IV steroids and further workup. Did review ED visit from yesterday where a troponin, proBNP, and chest x-ray obtained without any acute abnormalities. Patient was discharged with a Medrol Dosepak although was unable to mixing picker tender
prescription. Patient's lungs are clear on auscultation today. She has no lower extremity edema. Patient has clear lungs and no lower extremity edema�low suspicion for PE. Given persistent shortness of breath�decision was made to obtain CTA
chest. Patient does have contrast allergy listed although has received IV contrast in the past�will premedicate.
Update: Patient tolerated CTA chest without any difficulties. report reviewed. No evidence of pulmonary embolism or other acute disease in the chest. There were few stable pulmonary nodules noted which were discussed with patient�copy report
given for which she will follow-up with pulmonology. Patient did receive a dose of IV steroids preceding CT scan. Shortness of breath from chronic bronchitis. Very low suspicion for acute cardiac process today. Will provide written prescription
for Medrol Dosepak. Advised against any further potassium supplementation today as levels are normal. Advised repeat lab work with PCP in a few weeks to ensure potassium levels normalized. Close return precautions discussed. Patient and
patient's daughter comfortable with plan. All questions answered.
Chronic conditions affecting care:
Chronic bronchitis, hypertension
Acute Exacerbation and/or Progression of Chronic Illness:
Acutely hypertensive
<Mindy Bucio PA-C - Last Filed: 05/02/24 19:50>
*Radiology
Radiology exam reviewed: radiology read reviewed
*Pulse Oximetry
Patient hypoxic: no
*EKG
Interpreted by ED Provider?: Yes
EKG Intrepretation Date: 05/02/24
Interpretation: normal
Comparison EKG: no changes
Heart Rate: 73
Rate: normal
Rhythm: sinus
[place]: normal axis
Interval: normal QT interval
QRS Pattern: normal QRS
Ischemia: no ischemia
*Pipe Finisher Interpretation
Rate: Pipe Finisher- N/A
*Critical Care Note
Total Time (30-74mins, 75-104mins- exclusive of procedures): Not Applicable
Data Reviewed
Review of Other/Old Records Reveals: Labs (Troponin drawn 05/01/2024 undetectable, proBNP of 353, potassium of 2.7) and Radiology Studies (Chest x-ray 05/01/2024 no acute disease of chest)
ED Attending Note
<Mindy Bucio PA-C - Last Filed: 05/02/24 19:50>
-
Portions of this chart may have been created with voice recognition software.� Occasional wrong word or��sound alike� substitutions may have occurred due to the inherent limitations of voice recognition software.
<Alexandra Odell DO - Last Filed: 05/02/24 17:43>
ED Attending Note
Patient seen and examined by attending physician: Yes
I performed the substantive portion of visit, reviewed & personally made and approve the management plan that is documented in note by myself or YENI.: Yes
I performed a history and physical exam of patient and discussed management with resident, I reviewed resident's note and agree with documented findings and plan of care.: Yes
ED Attending Note:
78-year-old female presenting with abnormal lab. Patient was seen in the hospital yesterday with neck strain, incidentally found to have a potassium of 2.7. Patient was advised admission, however declined. She received 40 mg of potassium and was
discharged home. After talking to her daughter, decided to come back to the hospital. She currently denies any acute symptoms. She denies any chest pain or difficulty breathing.
Vital signs normal. Patient well-appearing on exam, unremarkable cardiac and pulmonary exam. EKG with normal intervals. Labs repeated, showed normalized potassium, 4.0. At this time, feel stable for discharge. No treatments required at this
time. At this time feel stable for discharge. Advise follow-up with primary care doctor for repeat chemistry panel in 1 to 2 weeks.
16:40 -prior to discharge, patient now persistently explaining that she feels short of breath from bronchitis. On assessment, no wheezing, no increased work of breathing. Workup reviewed from yesterday, unremarkable. Patient ambulated, no hypoxia
or tachycardia. Patient is demanding IV steroids. Decision made to rule out PE given patient reporting her dyspnea
Discharge Plan
Departure
Patient Disposition: Home (Routine Discharge)
Date of Disposition: 05/02/24
Time of Disposition: 18:56
Patient with high blood pressure during this ER visit?: Yes
Condition: Good
Covid-19: Not Applicable
Discharge Problem:
History of hypokalemia, Chronic shortness of breath
Instructions: Hypokalemia, Shortness of breath, BLOOD PRESSURE
Prescriptions:
New
methylprednisolone [Medrol (Shaan)] 4 mg tablets,dose pack
See Rx Instructions .ROUTE .COMPLEX Qty: 21 0RF
Rx Instructions:
for 6 days
No Action
levalbuterol tartrate [Xopenex HFA] 45 mcg/actuation Hfa Aerosol Inhaler
2 inh INHALATION R Q6HPRN PRN (Reason: SOB)
zolpidem 10 mg tablet
10 mg PO HS
Patient Comments:
02/20/2024: last filled 11/24/23, 90 tabs for 90 days
sertraline 50 mg tablet
50 mg PO DAILY
rosuvastatin 20 mg tablet
20 mg PO QPM
Dulera 100-5 mcg/actuation HFA aerosol inhaler
2 puff INHALATION R BID
Thera-Tabs Tablet
1 tab PO DAILY
famotidine [Pepcid] 40 mg Tablet
40 mg PO HS
cholestyramine (with sugar) 4 gram Powder In Packet
2 - 4 g PO DAILY
valsartan-hydrochlorothiazide 320-25 mg Tablet
1 tab PO DAILY
cholecalciferol (vitamin D3) [Vitamin D3] 25 mcg (1,000 unit) Tablet
25 mcg PO DAILY
omeprazole 20 mg Tablet,Delayed Release (Dr/Ec)
20 mg PO DAILY
lidocaine 4 % Adhesive Patch,Medicated
1 patch topical DAILY Qty: 30 0RF
acetaminophen 325 mg Tablet
650 mg PO Q4HPRN PRN (Reason: mild pain/ fever>100.5F) Qty: 0 0RF
diazepam 2 mg Tablet
2 mg PO TIDPRN PRN (Reason: intractable vertigo) Qty: 15 0RF
scopolamine base 1 mg over 3 days Patch 3 Day
1 patch transdermal Q72H Qty: 2 0RF
meclizine 25 mg Tablet
25 mg PO TIDPRN PRN (Reason: dizziness) Qty: 0 0RF
potassium chloride 20 mEq packet
20 meq PO BID 5 Days Qty: 30 0RF
methylprednisolone [Medrol (Shaan)] 4 mg tablets,dose pack
See Rx Instructions .ROUTE .COMPLEX Qty: 21 0RF
Rx Instructions:
orally per package directions
Referrals:
Chela White CRNP [Family Provider] -
Activity Restrictions/Additional Instructions:
Return to the emergency department with any chest pain, worsening shortness of breath/difficulty breathing, severe back pain, abdominal pain, worsening current symptoms, or any other concerns
-As discussed�your potassium was within normal range today. You should refrain from any further potassium supplementations at this time. It is important that you have your labs rechecked with your primary care to ensure that it stays within range
-Stay well-hydrated. Eat a balanced diet.
-Your CT of your chest showed no acute abnormalities today. However�there were a few nodules that were noted in your chest which appears stable and likely benign. However you should have these followed up with your primary care/food service team member
-It is very important that you follow-up closely with your food service team member further evaluation/management of your chronic shortness of breath
Monitor your symptoms closely and return to the emergency department with any acute worsening/new symptoms or any other concerns
Interventions
Interventions:
*Risk Screen - Suicide Last Done: 05/02/24 12:50
*General Assessment Last Done: 05/02/24 12:50
*Neglect/Abuse Screening Last Done: 05/02/24 12:50
ED- Fall Risk Assessment Last Done: 05/02/24 15:20
*ED COVID-19 Vaccine History Last Done: 05/02/24 12:50
*Nursing Disposition Last Done: 05/02/24 19:07
Discharge Date and Time
Discharge Date/Time: 05/02/24 19:10
Print Language: CHINESE
[2024-05-02] MEDS: NSS 500 IV (16:34)
[2024-05-02] MEDS: SOLU-CORTEF 200 MG IV (16:34)
[2024-05-02] MEDS: BENADRYL 50 MG IV (16:35)
[2024-05-02 16:41] VITALS: BP 138/83
[2024-05-02 17:00] VITALS: BP 134/68
== END 2024-05-02 19:10 | disposition home or self-care (01) ==
LOC: EMR 12:43
PROVIDERS: Physician Assistant; EMERGENCY PHYSICIAN Student in an Organized Health Care Education/Training Program; FAMILY PHYSICIAN Nurse Practitioner
DX: E87.6 Hypokalemia (principal); R06.02 Shortness of breath; I10 Essential (primary) hypertension
CPT/HCPCS: 99285; 96374; 96375; 96361; 71275; 80053; 83735; 85025; 93005; Q9967

== ENCOUNTER → 2024-05-06 11:32 | Outpatient (REF) | payer MEDICARE, BC, SELFPAY ==
[2024-05-06 14:49] LABS: % Basophils 0.2 % (0-2); % Eosinophils 0.2 % (0-6); % Immature Granulocytes 1.1 % (0-0.5); % Lymphocytes 19.7 % (20.5-51.1); % Monocytes 7.2 % (1.7-9.3); % Neutrophils 71.6 % (42.2-75.2); Absolute Immature Granulocytes 0.1 10^3/uL (0-0.05); Absolute Lymphocytes 1.8 10^3/uL (1.2-3.4); Absolute Monocytes 0.7 10^3/uL (0.1-0.6); Absolute Neutrophils 6.7 10^3/uL (1.4-6.5); Hematocrit 40.4 % (37.0-47.0); Hemoglobin 13.8 g/dL (12.0-16.0); Mean Corp Hgb Conc. 34.2 g/dL (33.0-37.0); Mean Corpuscular Volume 87.8 fL (81.0-99.0); Mean Platelet Volume 9.6 fL (7.4-10.4); Nucleated Red Blood Cells % 0 %; Platelet Count 155 10^3/uL (130-400); Red Cell Dist. Width 12.4 % (11.5-14.5); White Blood Cell Count 9.3 10^3/uL (4.8-10.8)
[2024-05-06 14:53] LABS: ALT (SGPT) 22 U/L (0-35); AST (SGOT) 24 U/L (14-36); Albumin 4.4 g/dl (3.5-5.0); Alkaline Phosphatase 53 U/L (38-126); Blood Urea Nitrogen 13 mg/dl (7-17); Calcium 9.5 mg/dl (8.4-10.2); Carbon Dioxide 29 mmol/L (22-30); Chloride 103 mmol/L (98-107); Glucose 92 mg/dl (70-99); Sodium 141 mmol/L (135-145); Total Bilirubin 0.8 mg/dl (0.2-1.3); Total Protein 6.6 g/dl (6.3-8.2); eGFR > 60.00
== END ==
LOC: REG 11:32
PROVIDERS: ATTENDING PHYSICIAN Hospitalist
DX: E87.6 Hypokalemia (principal); R41.89 Other symptoms and signs involving cognitive functions and awareness
CPT/HCPCS: 36415; 80053; 85025

== ENCOUNTER 2024-05-15 10:17 | Emergency (ER) | payer MEDICARE, BC, SELFPAY ==
[2024-05-15 10:20] VITALS: BP 113/84
--- NOTE | 2024-05-15 11:38 | ED.GENMED ---
History of Present Illness
General
Chief Complaint: Breathing Problem
Source: patient and records
Exam Limitations: none
Time Seen by Provider: 05/15/24 11:20
History of Present Illness
History of Present Illness:
78yoF with a history of asthma, hypertension, GERD, and anxiety presenting with her for evaluation of shortness of breath. Patient has been having ongoing dyspnea for the past 2 to 3 months. She reports significant shortness of breath
primarily with activity. She also feels like she has congestion in her chest. She has decreased appetite and has lost over 20 pounds in the past few months. She denies any chest pain, leg swelling, cough, fevers. Patient has been seen in the ED
several times for the same as well as by her PCP. Patient states no one can find out the cause of her symptoms. 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 She was last seen by her PCP a few days ago and
she is scheduled to have an echocardiogram next week. She was last seen in the ED on 05/02/2024 and she had a negative PE study at that time.
Past History
Past History
ED Past Medical History: Asthma, GERD and HTN
ED Past Surgical History: Appendectomy, Cholecystectomy, Orthopedic and Tonsilectomy
Patient has exhibited threatening behavior?: No
PSI?: No
Social History
Tobacco: Non-smoker
Alcohol: None
Drug: None
Personal:
Living: with family
Phy Exam
General Physical Exam
General Presentation: well appearing
General Skin: warm and dry
General Habitus: normal
General Mental: alert and anxious
ENT Exam
ENT Exam: normocephalic
Cardiovascular Exam
Cardiovascular Exam: regular rate/rhythm, no edema and no murmur
Pulmonary Exam
Pulmonary Exam: lungs clear, no rales, no crackles, no rhonchi, no wheezing and other (Mild tachypnea noted although patient able to speak in full sentences. Lungs CTA. Oxygen saturation 98-100% during exam.)
Neurological Exam
Neurological Exam: alert
Thompson Coma Scale
Eye Opening: Spontaneous
Verbal Response: Oriented
Motor Response: Obeys Commands
GCS Total Score: 15
Skin Exam
Skin Exam: normal color and warm/dry
Psychiatric Exam
Psychiatric Exam: anxious
Scores
Heart Failure Risk
Heart Failure Risk Score: Not Applicable
Course
Orders/Labs/Results
Orders:
Orders
05/15/24 10:24
Electrocardiogram (*1) Urgent
Reason for Study: Shortness of Breath
EKG- Treatment ONCE
05/15/24 11:38
Cardiac Monitoring- Treatment ONCE
05/15/24 11:39
CR Chest - 2 Views Urgent
Comment:
Reason For Exam: SOB
05/15/24 11:45
Ipratropium/Albuterol Sulfate [Duoneb] 3 ml INH R NOW STA
05/15/24 11:57
COVID-19 Antigen Urgent
Source: Nasal Swab
Complete Blood Count/With Diff Urgent
Comprehensive Metabolic Panel Urgent
Magnesium Urgent
NT-proBNP Urgent
Troponin I Urgent
Venous Blood Gas Urgent
%Oxygen/Room Air: room air
Influenza A+B Rapid Molecular Urgent
TUAN Source: Nasal Swab
Specimen Description:
Respiratory Syncytial Virus Urgent
TUAN Source: Nasal Swab
Specimen Description:
Date Specimen was Collected: 05/15/24
Time Specimen was Collected: 11:49
05/15/24 12:31
Potassium Chloride [KCl] 40 meq PO NOW STA
05/15/24 15:15
Case Management Consult ONCE
Case Management Consult: Discharge Planning
05/15/24 15:[address] Non Medication Order As Directed
Physician Order: Please provide patient with nebulizer machine at discharge
Abnormal Lab Results
05/15/24
11:57
Plt Count 116 L 10^3/uL
(130-400)
Abs Immat Gran (auto) 0.1 H 10^3/uL
(0-0.05)
Immature Gran % 1.0 H %
(0-0.5)
Neutrophils % 78.2 H %
(42.2-75.2)
Lymphocytes % 15.0 L %
(20.5-51.1)
VBG pH 7.48 H
(7.32-7.43)
VBG pO2 28 L mmHg
(30-50)
VBG HCO3 27.6 H mmol/L
(22-27)
Potassium 3.1 L mmol/L
(3.5-5.1)
Total Bilirubin 1.4 H mg/dl
(0.2-1.3)
05/15/24 11:57
05/15/24 11:57
Vital Signs
Initial and Last Documented VS:
Initial Vital Signs
Temp Pulse Resp BP Pulse Ox
98.4 F 90 18 113/84 98
05/15/24 10:20 05/15/24 10:20 05/15/24 10:20 05/15/24 10:20 05/15/24 10:20
Last Documented Vital Signs
Temp Pulse Resp BP Pulse Ox
98.4 F 88 16 125/70 98
05/15/24 10:20 05/15/24 16:07 05/15/24 16:07 05/15/24 16:07 05/15/24 16:07
MDM/Problems Addressed
Differential Diagnosis Includes:
78yoF here with SOB ongoing x 2-3 months. Has been seen multiple times in the past without diagnosis. Denies CP, leg swelling, fevers. Vitals are normal and oxygen saturation 98% on room air. Patient is speaking in full sentences. Lungs clear to
auscultation. Differential diagnosis includes but is not limited to: Asthma exacerbation, bronchitis, pneumonia, ACS, anxiety
Initial ED plan: Check cardiac labs, COVID/flu/RSV swab, EKG, and chest x-ray. Will trial DuoNeb and reassess.
*EKG
Interpreted by ED Provider?: Yes
EKG Intrepretation Date: 05/15/24
Heart Rate: 74
Rate: normal
Rhythm: sinus
[place]: normal axis
Interval: normal interval
Ischemia: no ischemia
*Critical Care Note
Total Time (30-74mins, 75-104mins- exclusive of procedures): Not Applicable
Update Note
Update Note:
Labs reveal a potassium of 3.1 which was replaced. Remainder of labs unremarkable. pCO2 is within normal limits. EKG shows normal sinus rhythm without ischemic changes. Troponin and BNP are both normal. Chest x-ray is clear without infiltrates.
Viral testing negative. No episodes of hypoxia throughout ED stay. No indication for hospitalization at this time as symptoms are chronic. Patient did report some improvement after the DuoNeb although she felt it was 'too much' and that she was
having some side effect from the albuterol. Will provide prescription for Xopenex. Patient is going to enter [facility] on Friday for respite care. Daughter questioning whether patient may be admitted until she is able to go to [facility]. Case
management consulted and they were offered [facility] care which patient and family ultimately declined. Nebulizer machine given to patient. She was advised to f/u closely with her PCP and pulmonology. She does have an appt with pulmonology on 05/25
and has an echocardiogram scheduled next week. ED return precautions discussed. Patient discharged in stable condition.
ED Attending Note
-
Portions of this chart may have been created with voice recognition software.� Occasional wrong word or��sound alike� substitutions may have occurred due to the inherent limitations of voice recognition software.
Discharge Plan
Departure
Patient Disposition: Home (Routine Discharge)
Date of Disposition: 05/15/24
Time of Disposition: 15:31
Patient with high blood pressure during this ER visit?: No
Discharge Problem:
Shortness of breath
Instructions: Shortness of Breath (Dyspnea) (DC)
Prescriptions:
New
levalbuterol HCl 0.63 mg/3 mL solution for nebulization
0.63 mg inhalation Q6H PRN (Reason: shortness of breath or wheezing) Qty: 72 0RF
levalbuterol HCl 0.63 mg/3 mL solution for nebulization
0.63 mg inhalation Q6H PRN (Reason: shortness of breath or wheezing) Qty: 72 0RF
levalbuterol HCl 0.63 mg/3 mL solution for nebulization
0.63 mg inhalation Q6H PRN (Reason: shortness of breath or wheezing) Qty: 72 0RF
No Action
levalbuterol tartrate [Xopenex HFA] 45 mcg/actuation Hfa Aerosol Inhaler
2 inh INHALATION R Q6HPRN PRN (Reason: SOB)
zolpidem 10 mg tablet
10 mg PO HS
Patient Comments:
02/20/2024: last filled 11/24/23, 90 tabs for 90 days
sertraline 50 mg tablet
50 mg PO DAILY
rosuvastatin 20 mg tablet
20 mg PO QPM
Dulera 100-5 mcg/actuation HFA aerosol inhaler
2 puff INHALATION R BID
Thera-Tabs Tablet
1 tab PO DAILY
famotidine [Pepcid] 40 mg Tablet
40 mg PO HS
cholestyramine (with sugar) 4 gram Powder In Packet
2 - 4 g PO DAILY
valsartan-hydrochlorothiazide 320-25 mg Tablet
1 tab PO DAILY
cholecalciferol (vitamin D3) [Vitamin D3] 25 mcg (1,000 unit) Tablet
25 mcg PO DAILY
omeprazole 20 mg Tablet,Delayed Release (Dr/Ec)
20 mg PO DAILY
lidocaine 4 % Adhesive Patch,Medicated
1 patch topical DAILY Qty: 30 0RF
acetaminophen 325 mg Tablet
650 mg PO Q4HPRN PRN (Reason: mild pain/ fever>100.5F) Qty: 0 0RF
diazepam 2 mg Tablet
2 mg PO TIDPRN PRN (Reason: intractable vertigo) Qty: 15 0RF
scopolamine base 1 mg over 3 days Patch 3 Day
1 patch transdermal Q72H Qty: 2 0RF
meclizine 25 mg Tablet
25 mg PO TIDPRN PRN (Reason: dizziness) Qty: 0 0RF
potassium chloride 20 mEq packet
20 meq PO BID 5 Days Qty: 30 0RF
methylprednisolone [Medrol (Shaan)] 4 mg tablets,dose pack
See Rx Instructions .ROUTE .COMPLEX Qty: 21 0RF
Rx Instructions:
orally per package directions
methylprednisolone [Medrol (Shaan)] 4 mg tablets,dose pack
See Rx Instructions .ROUTE .COMPLEX Qty: 21 0RF
Rx Instructions:
for 6 days
Referrals:
Isidoro Pugh MD [Family Provider] -
Activity Restrictions/Additional Instructions:
Use nebulizer treatments as needed.
Please follow-up with your family doctor and pulmonology. Return to the ER with any new or worsening symptoms.
Interventions
Interventions:
*Risk Screen - Suicide Last Done: 05/15/24 10:20
*Neglect/Abuse Screening Last Done: 05/15/24 10:20
ED- Fall Risk Assessment Last Done: 05/15/24 11:00
*Nursing Disposition Last Done: 05/15/24 16:36
ED- Cardiac Assessment Last Done: 05/15/24 11:00
ED- Pulmonary Assessment Last Done: 05/15/24 11:00
Discharge Date and Time
Discharge Date/Time: 05/15/24 16:37
Print Language: ROMANIAN
[2024-05-15] MEDS: DUONEB 3 ML INH (12:00)
[2024-05-15 12:18] LABS: Venous Blood Gas B.E. 4.1 mmol/L (-4 to +4); Venous Blood Gas HCO3 27.6 mmol/L (22-27); Venous Blood Gas O2 Sat % 46.9 %; Venous Blood Gas pCO2 37 mmHg (35-48); Venous Blood Gas pH 7.48 (7.32-7.43); Venous Blood Gas pO2 28 mmHg (30-50)
[2024-05-15 12:25] LABS: ALT (SGPT) 22 U/L (0-35); AST (SGOT) 20 U/L (14-36); Albumin 4.4 g/dl (3.5-5.0); Alkaline Phosphatase 58 U/L (38-126); Blood Urea Nitrogen 13 mg/dl (7-17); Calcium 9.5 mg/dl (8.4-10.2); Carbon Dioxide 26 mmol/L (22-30); Chloride 101 mmol/L (98-107); Glucose 90 mg/dl (70-99); Magnesium 1.8 mg/dl (1.6-2.3); Potassium 3.1 mmol/L (3.5-5.1); Sodium 138 mmol/L (135-145); Total Bilirubin 1.4 mg/dl (0.2-1.3); Total Protein 6.6 g/dl (6.3-8.2); eGFR > 60.00
[2024-05-15 12:33] LABS: % Basophils 0.2 % (0-2); % Eosinophils 0.1 % (0-6); % Monocytes 5.5 % (1.7-9.3); % Neutrophils 78.2 % (42.2-75.2); Absolute Immature Granulocytes 0.1 10^3/uL (0-0.05); Absolute Lymphocytes 1.2 10^3/uL (1.2-3.4); Absolute Monocytes 0.4 10^3/uL (0.1-0.6); Absolute Neutrophils 6.3 10^3/uL (1.4-6.5); Hematocrit 40.6 % (37.0-47.0); Hemoglobin 14.5 g/dL (12.0-16.0); Mean Corp Hgb Conc. 35.7 g/dL (33.0-37.0); Mean Corpuscular Hgb 30.1 pg (27.0-31.0); Mean Corpuscular Volume 84.4 fL (81.0-99.0); Mean Platelet Volume 10.1 fL (7.4-10.4); Nucleated Red Blood Cells % 0 %; Platelet Count 116 10^3/uL (130-400); Red Blood Cell Count 4.81 10^6/uL (4.20-5.40); Red Cell Dist. Width 12.1 % (11.5-14.5); White Blood Cell Count 8.1 10^3/uL (4.8-10.8)
[2024-05-15 12:37] LABS: NT-proBNP 150 pg/ml; Troponin I < 0.012 ng/ml
[2024-05-15] MEDS: KCL PO (12:39)
[2024-05-15 12:50] LABS: COVID-19 Antigen Negative (Negative)
[2024-05-15] MEDS: KCL 40 MEQ PO (13:10)
--- NOTE | 2024-05-15 15:17 | CM ---
ISELA spoke with family. Daughter stated that the patient is going to the [facility] on Friday. She was advised to bring patient to Emergency Room for evaluation and possible admission until patient goes to [facility]. Patient's daughter stated that she
believes the patient and rehab care assistant are too nervous for patient to be at home. Cm offered [facility] rate. Family declined.
ISELA updated ED PA>
[2024-05-15 16:07] VITALS: BP 125/70
== END 2024-05-15 16:37 | disposition home or self-care (01) ==
LOC: EMR 10:17
PROVIDERS: Physician Assistant; EMERGENCY PHYSICIAN Student in an Organized Health Care Education/Training Program; FAMILY PHYSICIAN Internal Medicine Geriatric Medicine
DX: R06.02 Shortness of breath (principal); J45.909 Unspecified asthma, uncomplicated; I11.9 Hypertensive heart disease without heart failure; F41.9 Anxiety disorder, unspecified; K21.9 Gastro-esophageal reflux disease without esophagitis
CPT/HCPCS: 99283; 71046; 80053; 82805; 83735; 83880; 84484; 85025; 87502; 87807; 87811; 93005

== ENCOUNTER → 2024-05-18 11:04 | Outpatient (REF) | payer MEDICARE, BC, SELFPAY | LOC: HWRCS 11:04 | PROVIDERS: ATTENDING PHYSICIAN Nurse Practitioner Primary Care; FAMILY PHYSICIAN Internal Medicine Geriatric Medicine | DX: E78.2 Mixed hyperlipidemia (principal); R06.02 Shortness of breath | CPT/HCPCS: 93306 ==

== ENCOUNTER → 2024-05-19 11:22 | Outpatient (REF) | payer MEDICARE, BC, SELFPAY ==
[2024-05-19 17:10] LABS: Urine Albumin 2+ (Neg - Trace); Urine Bilirubin 1+ (Negative); Urine Character Cloudy (Clear); Urine Color Yellow; Urine Glucose Negative (Negative); Urine Ketone 1+ (Negative); Urine Leukocyte 3+ (Negative); Urine Nitrite Negative (Negative); Urine Occult Blood Negative (Negative); Urine Specific Gravity 1.025 (<1.030); Urine Urobilinogen 2+ (Neg - 1+)
[2024-05-19 17:21] LABS: Urine Bacteria Many (Negative); Urine Red Blood Cell 0-2 /HPF (0-2)
[2024-05-19 17:23] LABS: Urine Amorphous Seen
== END ==
LOC: CLAB 11:22
PROVIDERS: ATTENDING PHYSICIAN Nurse Practitioner Family
DX: R39.15 Urgency of urination (principal)
CPT/HCPCS: 81003; 81015; 87086

== ENCOUNTER → 2024-05-21 08:06 | Outpatient (REF) | payer MEDICARE, BC, SELFPAY ==
[2024-05-21 09:51] LABS: % Basophils 0.2 % (0-2); % Eosinophils 0.2 % (0-6); % Immature Granulocytes 0.8 % (0-0.5); % Lymphocytes 19.5 % (20.5-51.1); % Monocytes 6.7 % (1.7-9.3); % Neutrophils 72.6 % (42.2-75.2); Absolute Immature Granulocytes 0.1 10^3/uL (0-0.05); Absolute Lymphocytes 1.3 10^3/uL (1.2-3.4); Absolute Monocytes 0.4 10^3/uL (0.1-0.6); Absolute Neutrophils 4.8 10^3/uL (1.4-6.5); Hematocrit 39.6 % (37.0-47.0); Hemoglobin 13.7 g/dL (12.0-16.0); Mean Corp Hgb Conc. 34.6 g/dL (33.0-37.0); Mean Corpuscular Hgb 30.1 pg (27.0-31.0); Mean Platelet Volume 10.6 fL (7.4-10.4); Nucleated Red Blood Cells % 0 %; Platelet Count 128 10^3/uL (130-400); Red Blood Cell Count 4.55 10^6/uL (4.20-5.40); Red Cell Dist. Width 12.2 % (11.5-14.5); White Blood Cell Count 6.6 10^3/uL (4.8-10.8)
[2024-05-21 10:04] LABS: ALT (SGPT) 20 U/L (0-35); AST (SGOT) 19 U/L (14-36); Albumin 4.2 g/dl (3.5-5.0); Alkaline Phosphatase 58 U/L (38-126); Blood Urea Nitrogen 16 mg/dl (7-17); Calcium 9.5 mg/dl (8.4-10.2); Carbon Dioxide 25 mmol/L (22-30); Chloride 104 mmol/L (98-107); Glucose 73 mg/dl (70-99); Potassium 3.7 mmol/L (3.5-5.1); Sodium 138 mmol/L (135-145); Total Bilirubin 0.9 mg/dl (0.2-1.3); Total Protein 6.2 g/dl (6.3-8.2); eGFR > 60.00
[2024-05-21 10:43] LABS: Cortisol, Random 2.2 ug/dl; TSH Reflex To Free T4 0.16 uIU/ml (0.47-4.68)
[2024-05-21 11:12] LABS: Free T4 1.97 ng/dl (0.78-2.19)
[2024-05-21 11:29] LABS: Erythrocyte Sed Rate 10 mm/hour (0-20)
[2024-05-21 16:47] LABS: Lyme Antibody Screen, EIA Negative (Negative)
[2024-05-23 15:42] LABS: tTG IgA Antibody <1.02 FLU (0.00-4.99)
[2024-05-24 08:05] LABS: Endomysial IgA Antibody Titer <1:10 (<1:10)
== END ==
LOC: REG 08:06
PROVIDERS: ATTENDING PHYSICIAN Nurse Practitioner Primary Care; FAMILY PHYSICIAN Internal Medicine Geriatric Medicine
DX: G44.89 Other headache syndrome (principal); R42 Dizziness and giddiness; R63.0 Anorexia; R06.02 Shortness of breath
CPT/HCPCS: 36415; 80053; 82533; 82784; 83516; 84439; 84443; 85025; 85652; 86140; 86231; 86618

== ENCOUNTER → 2024-06-03 09:41 | Outpatient (REF) | payer MEDICARE, BC, SELFPAY ==
[2024-06-03 13:34] LABS: Prealbumin (Transthyretin) 18.8 mg/dl (17.6-36.0)
[2024-06-03 13:41] LABS: Free T3 3.38 pg/ml (2.77-5.27); Free T4 1.72 ng/dl (0.78-2.19)
[2024-06-03 15:47] LABS: Erythrocyte Sed Rate 13 mm/hour (0-20)
[2024-06-04 18:05] LABS: Thyroglobulin Antibodies <0.9 IU/mL (0.0-4.0); Thyroid Peroxidase Ab (TPO) <0.3 IU/mL (0.0-9.0)
[2024-06-04 21:02] LABS: SSA 52 (Ro)(ENA) Ab, IgG 2 AU/mL (0-40); SSA 60 (Ro)(ENA) Ab, IgG 0 AU/mL (0-40); SSB (La)(ENA) Ab, IgG 0 AU/mL (0-40)
[2024-06-05 00:07] LABS: TSH Receptor Antibody <1.10 IU/L (<=1.75)
== END ==
LOC: HWRAD 09:41
PROVIDERS: ATTENDING PHYSICIAN Nurse Practitioner Primary Care; FAMILY PHYSICIAN Internal Medicine Geriatric Medicine; REFERRING PHYSICIAN Nurse Practitioner Adult Health
DX: E05.90 Thyrotoxicosis, unspecified without thyrotoxic crisis or storm (principal); R06.02 Shortness of breath; J47.9 Bronchiectasis, uncomplicated; J42 Unspecified chronic bronchitis; J45.40 Moderate persistent asthma, uncomplicated; J45.901 Unspecified asthma with (acute) exacerbation; J98.4 Other disorders of lung; R94.2 Abnormal results of pulmonary function studies; Z87.01 Personal history of pneumonia (recurrent); Z77.9 Other contact with and (suspected) exposures hazardous to health; R76.8 Other specified abnormal immunological findings in serum; K21.9 Gastro-esophageal reflux disease without esophagitis; I10 Essential (primary) hypertension; K57.90 Diverticulosis of intestine, part unspecified, without perforation or abscess without bleeding; M54.9 Dorsalgia, unspecified; E66.9 Obesity, unspecified; G47.00 Insomnia, unspecified; K76.0 Fatty (change of) liver, not elsewhere classified
CPT/HCPCS: 36415; 76536; 83520; 84134; 84439; 84443; 84481; 85652; 86140; 86235; 86376; 86800

== ENCOUNTER → 2024-06-09 10:52 | Outpatient (REF) | payer MEDICARE, BC, SELFPAY ==
[2024-06-09 17:12] LABS: Urine Albumin 2+ (Neg - Trace); Urine Bilirubin Negative (Negative); Urine Character Cloudy (Clear); Urine Color Yellow; Urine Glucose Negative (Negative); Urine Ketone Negative (Negative); Urine Leukocyte 3+ (Negative); Urine Nitrite Negative (Negative); Urine Occult Blood 1+ (Negative); Urine Urobilinogen 1+ (Neg - 1+)
[2024-06-09 17:37] LABS: Urine Squamous Cell 0-2 /LPF (Few)
[2024-06-09 17:38] LABS: Urine Amorphous Seen; Urine Calcium Oxalate Crystals Present
== END ==
LOC: HWLAB 10:52
PROVIDERS: ATTENDING PHYSICIAN Urology; FAMILY PHYSICIAN Internal Medicine Geriatric Medicine
DX: N39.0 Urinary tract infection, site not specified (principal)
CPT/HCPCS: 81003; 81015; 87086

== ENCOUNTER → 2024-06-22 11:25 | Outpatient (REF) | payer MEDICARE, BC, SELFPAY | LOC: RAD 11:25 | PROVIDERS: ATTENDING PHYSICIAN Internal Medicine Critical Care Medicine | DX: R05.3 Chronic cough (principal) | CPT/HCPCS: 71046 ==

== ENCOUNTER → 2024-06-24 10:37 | Outpatient (REF) | payer MEDICARE, BC, SELFPAY | LOC: RCS 10:37 | PROVIDERS: ATTENDING PHYSICIAN Nurse Practitioner; FAMILY PHYSICIAN Internal Medicine Geriatric Medicine | DX: R00.2 Palpitations (principal) | CPT/HCPCS: 93225; 93226 ==

== ENCOUNTER → 2024-07-05 14:25 | Outpatient (REF) | payer MEDICARE, BC, SELFPAY | LOC: PAVMRI 14:25 | PROVIDERS: ATTENDING PHYSICIAN Internal Medicine Geriatric Medicine | DX: R41.3 Other amnesia (principal) | CPT/HCPCS: 70551 ==

== ENCOUNTER → 2024-07-14 13:51 | Outpatient (REF) | payer MEDICARE, BC, SELFPAY | LOC: RCS 13:51 | PROVIDERS: ATTENDING PHYSICIAN Nurse Practitioner Primary Care; FAMILY PHYSICIAN Internal Medicine Geriatric Medicine | DX: I10 Essential (primary) hypertension (principal); R06.02 Shortness of breath | CPT/HCPCS: 93017; 93350 ==

== ENCOUNTER → 2024-07-16 12:00 | Outpatient (REF) | payer MEDICARE, BC, SELFPAY ==
[2024-07-16 12:49] LABS: % Basophils 0.5 % (0-2); % Eosinophils 1.6 % (0-6); % Immature Granulocytes 0.8 % (0-0.5); % Lymphocytes 25.3 % (20.5-51.1); % Monocytes 6.6 % (1.7-9.3); % Neutrophils 65.2 % (42.2-75.2); Absolute Eosinophils 0.1 10^3/uL (0-0.7); Absolute Immature Granulocytes 0.1 10^3/uL (0-0.05); Absolute Lymphocytes 1.5 10^3/uL (1.2-3.4); Absolute Monocytes 0.4 10^3/uL (0.1-0.6); Hematocrit 40.3 % (37.0-47.0); Hemoglobin 13.7 g/dL (12.0-16.0); Mean Corpuscular Hgb 29.1 pg (27.0-31.0); Mean Corpuscular Volume 85.7 fL (81.0-99.0); Mean Platelet Volume 9.7 fL (7.4-10.4); Nucleated Red Blood Cells % 0 %; Platelet Count 152 10^3/uL (130-400); Red Cell Dist. Width 12.2 % (11.5-14.5); White Blood Cell Count 6.1 10^3/uL (4.8-10.8)
[2024-07-16 12:58] LABS: Urine Albumin Negative (Neg - Trace); Urine Bilirubin Negative (Negative); Urine Character Clear (Clear); Urine Color Yellow; Urine Glucose Negative (Negative); Urine Ketone Negative (Negative); Urine Leukocyte 3+ (Negative); Urine Nitrite Negative (Negative); Urine Occult Blood Negative (Negative); Urine Specific Gravity 1.025 (<1.030); Urine Urobilinogen Negative (Neg - 1+)
[2024-07-16 13:10] LABS: Urine Bacteria Few (Negative); Urine Calcium Oxalate Crystals Present; Urine Red Blood Cell 0-2 /HPF (0-2); Urine Squamous Cell 21-25 /LPF (Few); Urine White Cell 16-20 /HPF (0-5)
[2024-07-16 14:45] LABS: ALT (SGPT) 20 U/L (0-35); AST (SGOT) 24 U/L (14-36); Albumin 4.6 g/dl (3.5-5.0); Alkaline Phosphatase 65 U/L (38-126); Blood Urea Nitrogen 17 mg/dl (7-17); Calcium 9.6 mg/dl (8.4-10.2); Carbon Dioxide 25 mmol/L (22-30); Chloride 107 mmol/L (98-107); Glucose 78 mg/dl (70-99); Potassium 3.9 mmol/L (3.5-5.1); Sodium 143 mmol/L (135-145); Total Bilirubin 0.8 mg/dl (0.2-1.3); Total Protein 6.8 g/dl (6.3-8.2); eGFR > 60.00
== END ==
LOC: REG 12:00
PROVIDERS: ATTENDING PHYSICIAN Nurse Practitioner Family
DX: R10.9 Unspecified abdominal pain (principal); S89.91XA Unspecified injury of right lower leg, initial encounter
CPT/HCPCS: 36415; 73610; 73630; 80053; 81003; 81015; 85025; 87086

== ENCOUNTER → 2024-07-28 06:53 | Outpatient (REF) | payer MEDICARE, BC, SELFPAY | LOC: RAD 06:53 | PROVIDERS: ATTENDING PHYSICIAN Nurse Practitioner Primary Care; FAMILY PHYSICIAN Internal Medicine Geriatric Medicine | DX: E05.90 Thyrotoxicosis, unspecified without thyrotoxic crisis or storm (principal); E04.2 Nontoxic multinodular goiter | CPT/HCPCS: 78014; A9516 ==

== ENCOUNTER → 2024-07-30 14:44 | Outpatient (REF) | payer MEDICARE, BC, SELFPAY | LOC: RAD 14:44 | PROVIDERS: ATTENDING PHYSICIAN Nurse Practitioner Family | DX: Z87.442 Personal history of urinary calculi (principal); R10.9 Unspecified abdominal pain | CPT/HCPCS: 76770 ==

== ENCOUNTER 2024-08-05 06:16 | Day surgery (SDC) | payer MEDICARE, BC, SELFPAY | END 2024-08-05 15:05 | disposition home or self-care (01) | LOC: GI 06:16 | PROVIDERS: ATTENDING PHYSICIAN Specialist | DX: R11.0 Nausea (principal); K31.89 Other diseases of stomach and duodenum; K31.A11 Gastric intestinal metaplasia without dysplasia, involving the antrum | CPT/HCPCS: 43239; 88305; 88342 ==

== ENCOUNTER → 2024-08-05 10:05 | Outpatient (REF) | payer MEDICARE, BC, SELFPAY ==
[2024-08-05 11:52] LABS: Free T3 2.98 pg/ml (2.77-5.27); Free T4 1.28 ng/dl (0.78-2.19)
[2024-08-05 12:05] LABS: TSH 1.03 uIU/ml (0.47-4.68)
[2024-08-06 21:04] LABS: Total T3 (Sendout) 100 ng/dL (80-200)
== END ==
LOC: REG 10:05
PROVIDERS: ATTENDING PHYSICIAN Nurse Practitioner Primary Care
DX: E05.90 Thyrotoxicosis, unspecified without thyrotoxic crisis or storm (principal); E05.10 Thyrotoxicosis with toxic single thyroid nodule without thyrotoxic crisis or storm
CPT/HCPCS: 36415; 84439; 84443; 84480; 84481

== ENCOUNTER 2024-08-23 19:47 | Emergency (ER) | payer MEDICARE, BC, SELFPAY ==
[2024-08-23 19:50] VITALS: BP 123/91
[2024-08-23 20:19] LABS: % Basophils 0.4 % (0-2); % Eosinophils 1.7 % (0-6); % Immature Granulocytes 0.7 % (0-0.5); % Lymphocytes 24.8 % (20.5-51.1); % Monocytes 5.2 % (1.7-9.3); % Neutrophils 67.2 % (42.2-75.2); Absolute Eosinophils 0.1 10^3/uL (0-0.7); Absolute Immature Granulocytes 0.1 10^3/uL (0-0.05); Absolute Lymphocytes 2.1 10^3/uL (1.2-3.4); Absolute Monocytes 0.4 10^3/uL (0.1-0.6); Absolute Neutrophils 5.6 10^3/uL (1.4-6.5); Hematocrit 39.4 % (37.0-47.0); Hemoglobin 13.6 g/dL (12.0-16.0); Mean Corp Hgb Conc. 34.5 g/dL (33.0-37.0); Mean Corpuscular Hgb 29.4 pg (27.0-31.0); Mean Corpuscular Volume 85.3 fL (81.0-99.0); Mean Platelet Volume 10.1 fL (7.4-10.4); Nucleated Red Blood Cells % 0 %; Platelet Count 139 10^3/uL (130-400); Red Blood Cell Count 4.62 10^6/uL (4.20-5.40); Red Cell Dist. Width 12.1 % (11.5-14.5); White Blood Cell Count 8.3 10^3/uL (4.8-10.8)
[2024-08-23 20:37] LABS: NT-proBNP 309 pg/ml; Troponin I < 0.012 ng/ml
[2024-08-23 20:38] LABS: ALT (SGPT) 17 U/L (0-35); AST (SGOT) 19 U/L (14-36); Albumin 4.9 g/dl (3.5-5.0); Alkaline Phosphatase 67 U/L (38-126); Blood Urea Nitrogen 23 mg/dl (7-17); Calcium 9.6 mg/dl (8.4-10.2); Carbon Dioxide 24 mmol/L (22-30); Chloride 106 mmol/L (98-107); Glucose 107 mg/dl (70-99); Sodium 141 mmol/L (135-145); Total Bilirubin 0.7 mg/dl (0.2-1.3); Total Protein 7.2 g/dl (6.3-8.2); eGFR 58.02
[2024-08-23 22:50] VITALS: BP 166/81
[2024-08-23 22:51] VITALS: BMI 27.9
[2024-08-23 23:00] VITALS: BP 153/78
[2024-08-24] VITALS: BP 144/62
[2024-08-24 00:39] LABS: Troponin I < 0.012 ng/ml
--- NOTE | 2024-08-24 02:16 | ED.GENMED ---
History of Present Illness
General
Chief Complaint: Breathing Problem
Source: patient, records and family (Daughter)
Exam Limitations: none
Time Seen by Provider: 08/23/24 22:44
Nursing documentation reviewed up to this point in time: agreed with except (She denies any chest pain or shortness of breath to me)
History of Present Illness
History of Present Illness:
79-year-old female with a past medical history as noted presents to the ER for evaluation after an episode of fatigue and lightheadedness. Patient has had intermittent episodes of fatigue and lightheadedness for the past few months. She has
followed up with Dr. Torres for cardiology and had outpatient testing including a Holter monitor�was found to have intermittent labile heart rate and occasional heart block. She is scheduled to see Dr. Christina tomorrow with plan for pacemaker
placement in the near future. She says this evening after she finished her chores for the day she had an episode where she felt very fatigued and had some 'brain fog' and lightheadedness. She did not have any chest pain or shortness of breath.
She said she had a mild associated headache. She did not have any focal weakness, numbness, speech issue, vision change. She was told that if she has lightheadedness she should go to the emergency room given her recent findings on Holter monitor
which prompted her to come into the emergency room tonight. Her symptoms this evening lasted for about an hour and by the time she arrived in the emergency room she says they have resolved and she now feels much better.
Past History
Past History
ED Past Medical History: Asthma, GERD and HTN
ED Past Surgical History: Appendectomy, Cholecystectomy, Orthopedic and Tonsilectomy
Patient has exhibited threatening behavior?: No
PSI?: No
Social History
Tobacco: Non-smoker
Alcohol: None
Drug: None
Personal:
Living: with family
Review of Systems
Review of Systems
All Other Systems: ROS reviewed and negative except as documented in HPI and ROS
Constitutional: Reports fatigue; Denies fever or chills
Respiratory: Denies cough or trouble breathing
Cardiac: Denies chest pain, diaphoresis or palpitations
ABD/GI: Denies abdominal pain, nausea or vomiting
: Denies flank pain
Musculoskeletal: Denies neck pain or back pain
Neurological: Reports dizzy and weakness (Generalized); Denies headache or numbness
Phy Exam
Physical Exam
Physical Exam:
General: Awake, alert, oriented x3 and very pleasant; no acute distress
Head: Normocephalic, atraumatic
Eyes: Conjunctiva normal, EOMI, pupils equal round and reactive to light bilaterally
Throat: Airway intact, handling secretions
Neck: Trachea midline, no JVD
Lungs: Clear to auscultation bilaterally, no wheezing, rales, rhonchi
Heart: Regular rate and rhythm, no murmurs, gallops, or rubs appreciated
Abd: Soft, non distended, nontender
Neuro: Cranial nerves intact, speech is fluid, motor and sensory intact in all extremities
Skin: no rash
Extremities: No edema in extremities, equal pulses in all extremities
Scores
Heart Failure Risk
Heart Failure Risk Score: Not Applicable
Heart Score for Chest Pain Patients
STEMI patient?: Not applicable
Withdrawal Assessment of Alcohol
Withdrawal Assessment Completed?: Not applicable
Course
Orders/Labs/Results
Orders:
Orders
08/23/24 19:52
Electrocardiogram (*1) Urgent
Reason for Study: Chest Pain
EKG- Treatment ONCE
CR Chest - 2 Views Urgent
Comment:
Reason For Exam: SOB
08/23/24 20:06
Complete Blood Count/With Diff Urgent
Comprehensive Metabolic Panel Urgent
NT-proBNP Urgent
PTT Urgent
TSH Reflex To Free T4 Urgent
Comment: ADD ON
Troponin I Urgent
08/23/24 22:29
Add On- LAB Urgent
Tests Added?: tsh with free t4
08/23/24 23:52
Troponin I Urgent
Abnormal Lab Results
08/23/24
20:06
Abs Immat Gran (auto) 0.1 H 10^3/uL
(0-0.05)
Immature Gran % 0.7 H %
(0-0.5)
BUN 23 H mg/dl
(7-17)
Glucose 107 H mg/dl
(70-99)
08/23/24 20:06
08/23/24 20:06
Vital Signs
Initial and Last Documented VS:
Initial Vital Signs
Temp Pulse Resp BP Pulse Ox
36.7 C 66 20 123/91 99
08/23/24 19:50 08/23/24 19:50 08/23/24 19:50 08/23/24 19:50 08/23/24 19:50
Last Documented Vital Signs
Temp Pulse Resp BP Pulse Ox
36.7 C 65 15 144/62 99
08/23/24 19:50 08/24/24 00:30 08/24/24 00:30 08/24/24 00:00 08/23/24 23:45
MDM/Problems Addressed
Differential Diagnosis Includes:
Dysrhythmia (tachy dysrhythmia, bradydysrhythmia/AV block), anemia, electrolyte derangement, orthostasis/dysautonomia, atypical anginal symptoms/ACS
MDM/Problems Addressed:
79-year-old female presents for evaluation after an episode of lightheadedness and generalized weakness associated with mild headache. Symptoms lasted for about an hour and have resolved. Vitals and exam as above. Her EKG shows sinus rhythm with
no AV block or acute ischemic changes. She had labs sent in triage including a CBC and a CMP which showed no clinically significant abnormalities. Her thyroid function studies are normal. Her troponin is undetectable and she had a proBNP sent
which was 300. She had a chest x-ray in triage which reviewed by me shows no acute disease. Send repeat troponin. Monitor on telemetry. Reassess.
Repeat troponin undetectable. Patient remains awake and alert with normal vital signs, asymptomatic. No events on the monitor. Discussed with cardiology given her recent finding of intermittent high-grade AV block on Holter monitor. She has
scheduled follow-up in the office tomorrow and with no acute events noted this evening they feel comfortable with follow-up as scheduled tomorrow. Patient feels very comfortable to plan as well. Spoke about return precautions all questions
answered.
*Radiology
Radiology exam reviewed: preliminary read by ED provider
*Pulse Oximetry
Patient hypoxic: no
*EKG
Interpreted by ED Provider?: Yes
Heart Rate: 63
Rate: normal
Rhythm: sinus
[place]: normal axis
Interval: normal interval
QRS Pattern: left vent hypertrophy
Ischemia: no ischemia
*Critical Care Note
Total Time (30-74mins, 75-104mins- exclusive of procedures): Not Applicable
Data Reviewed
Review of Other/Old Records Reveals: Labs, Records and Testing
Source: patient, records and family
Patient Management
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
ED Attending Note
-
Portions of this chart may have been created with voice recognition software.� Occasional wrong word or��sound alike� substitutions may have occurred due to the inherent limitations of voice recognition software.
Discharge Plan
Departure
Patient Disposition: Home (Routine Discharge)
Date of Disposition: 08/24/24
Time of Disposition: 00:42
Patient with high blood pressure during this ER visit?: Yes
Discharge Problem:
Weakness, Light-headedness
Instructions: Weakness, Dizziness in adults - ED discharge instructions
Prescriptions:
No Action
levalbuterol tartrate [Xopenex HFA] 45 mcg/actuation Hfa Aerosol Inhaler
2 inh INHALATION R Q6HPRN PRN (Reason: SOB)
zolpidem 10 mg tablet
10 mg PO HS
Patient Comments:
02/20/2024: last filled 11/24/23, 90 tabs for 90 days
sertraline 50 mg tablet
50 mg PO DAILY
rosuvastatin 20 mg tablet
20 mg PO QPM
Dulera 100-5 mcg/actuation HFA aerosol inhaler
2 puff INHALATION R BID
Thera-Tabs Tablet
1 tab PO DAILY
famotidine [Pepcid] 40 mg Tablet
40 mg PO HS
cholestyramine (with sugar) 4 gram Powder In Packet
2 - 4 g PO DAILY
valsartan-hydrochlorothiazide 320-25 mg Tablet
1 tab PO DAILY
cholecalciferol (vitamin D3) [Vitamin D3] 25 mcg (1,000 unit) Tablet
25 mcg PO DAILY
omeprazole 20 mg Tablet,Delayed Release (Dr/Ec)
20 mg PO DAILY
lidocaine 4 % Adhesive Patch,Medicated
1 patch topical DAILY Qty: 30 0RF
acetaminophen 325 mg Tablet
650 mg PO Q4HPRN PRN (Reason: mild pain/ fever>100.5F) Qty: 0 0RF
diazepam 2 mg Tablet
2 mg PO TIDPRN PRN (Reason: intractable vertigo) Qty: 15 0RF
scopolamine base 1 mg over 3 days Patch 3 Day
1 patch transdermal Q72H Qty: 2 0RF
meclizine 25 mg Tablet
25 mg PO TIDPRN PRN (Reason: dizziness) Qty: 0 0RF
potassium chloride 20 mEq packet
20 meq PO BID 5 Days Qty: 30 0RF
methylprednisolone [Medrol (Shaan)] 4 mg tablets,dose pack
See Rx Instructions .ROUTE .COMPLEX Qty: 21 0RF
Rx Instructions:
orally per package directions
methylprednisolone [Medrol (Shaan)] 4 mg tablets,dose pack
See Rx Instructions .ROUTE .COMPLEX Qty: 21 0RF
Rx Instructions:
for 6 days
levalbuterol HCl 0.63 mg/3 mL solution for nebulization
0.63 mg inhalation Q6H PRN (Reason: shortness of breath or wheezing) Qty: 72 0RF
levalbuterol HCl 0.63 mg/3 mL solution for nebulization
0.63 mg inhalation Q6H PRN (Reason: shortness of breath or wheezing) Qty: 72 0RF
levalbuterol HCl 0.63 mg/3 mL solution for nebulization
0.63 mg inhalation Q6H PRN (Reason: shortness of breath or wheezing) Qty: 72 0RF
Referrals:
Rebeca Estrada CRNP [Family Provider] -
Rich Christina MD [Active] - Tomorrow
Activity Restrictions/Additional Instructions:
Thank you for visiting the Emergency Department at [facility].
1. Please schedule a follow up appointment as directed. Call first thing tomorrow morning to make an appointment.
2. If indicated, please take your medications as instructed and indicated on discharge paperwork.
3. If any of your symptoms do not improve, or persist, or become more severe within 6-12 hours, please return to the emergency department for further care.
4. Please return to the emergency department if you develop a headache, neck pain/stiffness, fever greater than 100.4F, chest pain, shortness of breath, persistent nausea, vomiting, slurred speech, difficulty walking, numbness/tingling, weakness,
signs of infection or any other symptoms that are worrisome to you.
Please call [phone] if you have any questions.
Interventions
Interventions:
*Risk Screen - Suicide Last Done: 08/23/24 22:51
*General Assessment Last Done: 08/23/24 19:50
*Neglect/Abuse Screening Last Done: 08/23/24 22:51
*ED- Fall Risk Assessment Last Done: 08/23/24 22:51
*ED COVID-19 Vaccine History Last Done: 08/23/24 22:51
*Nursing Disposition Last Done: 08/24/24 00:56
ED- Cardiac Assessment Last Done: 08/23/24 23:43
ED- Pulmonary Assessment Last Done: 08/23/24 23:43
Discharge Date and Time
Discharge Date/Time: 08/24/24 00:56
Print Language: INDIAN
== END 2024-08-24 00:56 | disposition home or self-care (01) ==
LOC: EMR 19:47
PROVIDERS: Emergency Medicine; EMERGENCY PHYSICIAN Emergency Medicine; FAMILY PHYSICIAN Nurse Practitioner Primary Care
DX: R53.1 Weakness (principal); R42 Dizziness and giddiness; I10 Essential (primary) hypertension; J45.909 Unspecified asthma, uncomplicated; Z90.49 Acquired absence of other specified parts of digestive tract
CPT/HCPCS: 99285; 71046; 80053; 83880; 84443; 84484; 85025; 85379; 85730; 93005

== ENCOUNTER 2024-08-27 08:13 | Day surgery (SDC) | payer MEDICARE, BC, SELFPAY ==
[2024-08-27] VITALS (14 sets, daily range): BP systolic 116–149; BP diastolic 48–81; BMI 28.5
--- NOTE | 2024-08-27 16:12 | ITS.CL.PACE ---
[employer] - Pacemaker Implant
Pacemaker Implant
Procedure Report:
Date of Procedure: August 27, 2024.
Procedure: Pacemaker Implantation.
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
Performing physician: Rich Chrisitna MD, [facility].
Implants:
Pulse Generator: Medtronic; Model# [id number]; Serial# [id number].
RA Lead: Medtronic; Model# 5076-52cm; Serial# [id number].
RV Lead: Medtronic; Model# 3830-69cm; Serial# [id number].
Technique: A time out was performed. The procedure site was identified. The patient was anesthetized by the anesthesia service. Preoperative cefazolin was administered. The patient was prepped and draped in the usual fashion. Local anesthetic was
applied to the left prepectoral subcutaneous tissue. A 3 inch incision was made along the left deltopectoral groove. Dissection was carried to the fascia. The left cephalic vein was easily isolated and proximal and distal control with 2-0 Vicryl
suture. Using a micropuncture needle to access the cephalic vein under direct visualization a wire was advanced into the central circulation. A 7 Fr introducer was placed to allow a total of two 0.35 J wires to be advanced. The leads were introduced
with hemostatic peel away introducer sheaths. The RV lead was placed using utilizing the Gudog His delivery catheter ([id number]) that was advanced to the left bundle area as confirmed by fluoroscopy in the SPANISH and SCHMITT projections. The lead tip was
advanced. PVC morphology was reviewed. When a satisfactory location was identified (W pattern observed) the lead was screwed into position with serial turns. Septal engagement was confirmed with gentle torque applied to the guide sheath. After each
series of turns (2-3) unipolar sensed morphology and impedance, and paced morphology of V1 was analyzed. The lead was further advanced until satisfactory morphology and electrical characteristics were confirmed. The RV lead was placed in the first
location evaluated. The long guiding sheath was cut and removed from the RV without change in lead position, impedance, sensing, or capture. The ventricular lead was secured to the pectoralis muscle and fascia with two 0-silk sutures. The atrial
lead was placed in the right atrial appendage. 8 volt pacing from each lead did not capture the diaphragm. The atrial leads was secured to the pectoralis muscle and fascia. A subcutaneous pocket was created with Bovie cautery. Hemostasis was
excellent. The leads were appropriately attached to the device. The pocket was irrigated with antibiotic solution. The device and leads were placed in the pocket. The incision was closed in three layers with absorbable suture. Steri-strips and a
silver impregnated dressing were placed. Estimated blood loss was 15 ml. There were no complications. Fluoroscopy time 2.5 minutes and DAP 0.752 GyCM2. The device was then interrogated after skin closure.
Lead Analysis:
RA lead: P: 3.8 mV; Threshold: 0.75 V @ 0.4 ms; Impedance: 510 ohms.
RV lead (bipolar): R: 4.7 mV; Threshold: 1 V @ 0.4 ms; Impedance: 740] ohms.
RV lead (unipolar): Threshold: 1 V @ 0.4 ms; Impedance: 530 ohms.
Paced QRS characteristics: V1 has QR morphology (both unipolar and bipolar) and measures 100 ms in duration, LVAT (stim to peak V5/V6) is 74 ms, and R peak V1 to R peak V6 is 46 ms.
Final Programming: MVP (AAIR to DDDR) 60-130 bpm.
Conclusion: Uncomplicated Medtronic pacemaker implant. The pacing system is MRI conditional.
Recommendation: Routine post pacemaker care.
cc: Khang Torres DO and Isidoro Pugh MD.
--- NOTE | 2024-08-27 16:25 | ITS.CL.PACE ---
[employer] - Pacemaker Implant
Pacemaker Implant
Procedure Report:
Date of Procedure: August 27, 2024.
Procedure: Atrial lead revision.
Indication: Acute atrial lead dislodgement. The pacemaker was placed earlier today.
Performing physician: Rich Christina MD, [facility].
Hardware placed earlier today:
Pulse Generator: Medtronic; Model# [id number]; Serial# [id number].
RA Lead: Medtronic; Model# 5076-52cm; Serial# [id number].
RV Lead: Medtronic; Model# 3830-69cm; Serial# [id number].
Technique: A time out was performed. The procedure site was identified. The patient was sedated by the anesthesia service. Preoperative cefazolin was administered. The patient was prepped and draped in the usual fashion. Local anesthetic was applied
to the left prepectoral subcutaneous tissue. A 3 inch incision was made along the left deltopectoral groove over the freshly closed incision. Suture material was removed and dissection was carried to the pocket. The atrial lead was freed from the
generator. The lead was freed from the stay suture. The atrial lead screw was retracted. The atrial lead repositioned to the right atrial appendage and then was secured to the pectoralis muscle and fascia. Hemostasis was excellent. The atrial lead
was appropriately attached to the device. The pocket was irrigated with antibiotic solution. The device and leads were placed in the pocket. A [employer], Tyrx absorbable antibiotic envelope was deployed in the pocket ([id number]; Lot [id number]). The
incision was closed in three layers with absorbable suture. Steri-strips and a silver impregnated dressing were placed. Estimated blood loss was 15 ml. There were no complications. Fluoroscopy time 0.4 minutes and DAP 0.89 GyCM2. The device was
then interrogated after skin closure.
Lead Analysis:
RA lead: P: 3.8 mV; Threshold: 0.75 V @ 0.4 ms; Impedance: 458 ohms.
RV lead: R: 9 mV; Threshold: 0.5 V @ 0.4 ms; Impedance: 570 ohms.
Final Programming: MVP (AAIR to DDDR) 60-130 bpm.
Conclusion: Uncomplicated atrial lead revision/repositioning. The pacing system is MRI conditional.
Recommendation: Routine post pacemaker care.
cc: Khang Torres DO and Isidoro Pugh MD.
--- NOTE | 2024-08-27 16:27 | CM ---
Reviewed Chart. Met with Mrs. Martinez to review discharge plans. She states prior to admission she resides with her spouse in a second floor condo with fourteen steps to enter. She states her spouse has his own health issues. She states prior
to admission she was independent with ambulation and adls. She states she does not have any DME in the home. She states she has a prescription plan and uses [facility] mail delivery and [facility] when needed. The discharge plan is to return
home with her spouse when medically stable.
[2024-08-27] MEDS: SYMBICORT 80/4.5 MCG INHALER 2 PUFF INH (18:43)
[2024-08-27] MEDS: CRESTOR 20 MG PO (18:46)
[2024-08-27] MEDS: TYLENOL 650 MG PO (18:46)
[2024-08-27] MEDS: DESYREL 50 MG PO (22:10)
[2024-08-27] MEDS: ANCEF 5 IV (22:10)
--- NOTE | 2024-08-28 00:52 | PTCARENOTE ---
Patient ambulating w/ standby assist, denies any dizziness. Tele remains SR & Apaced, HR in the 60-70's at rest. Left anterior chest w/ pressure dressing intact. Left arm remains in immobilizer. Patient educated on activity restrictions and
verbalized understanding. Call lindsey within reach, pt can make her needs known.
[2024-08-28] MEDS: TYLENOL 650 MG PO (01:59)
[2024-08-28 02:03] VITALS: BP 137/71
[2024-08-28 02:30] LABS: Hematocrit 33.8 % (37.0-47.0); Hemoglobin 12.1 g/dL (12.0-16.0); Mean Corp Hgb Conc. 35.8 g/dL (33.0-37.0); Mean Corpuscular Hgb 29.7 pg (27.0-31.0); Mean Corpuscular Volume 82.8 fL (81.0-99.0); Mean Platelet Volume 9.8 fL (7.4-10.4); Platelet Count 129 10^3/uL (130-400); Red Blood Cell Count 4.08 10^6/uL (4.20-5.40); Red Cell Dist. Width 12.1 % (11.5-14.5); White Blood Cell Count 11.3 10^3/uL (4.8-10.8)
[2024-08-28 02:43] LABS: Blood Urea Nitrogen 19 mg/dl (7-17); Carbon Dioxide 25 mmol/L (22-30); Chloride 108 mmol/L (98-107); Estimated Creatinine Clearance 64 ml/min; Glucose 93 mg/dl (70-99); Sodium 141 mmol/L (135-145); eGFR > 60.00
[2024-08-28] MEDS: ANCEF 5 IV (06:07)
[2024-08-28 08:07] VITALS: BP 124/75
[2024-08-28] MEDS: ZOLOFT 25 MG PO (08:10)
[2024-08-28] MEDS: DIOVAN 160 MG PO (08:10)
--- NOTE | 2024-08-28 08:40 | W.PN.UPDATE ---
Update Note
Progress Note Update
s/p PPM and RA lead revision. No complaints. Decreased p wave amplitude on carelink. we did CXR. Lead position looks good. Site c/d/i. Will plan for discharge.
--- NOTE | 2024-08-28 08:43 | W.DS.TRANS ---
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
-
Discharge Instructions:
Discharge Diagnosis/Procedures Pacemaker implant
Diet Low Cholesterol
Driving Restrictions No driving for 1 week
Bathing Restrictions OK to Shower
Instructions:
Stand-Alone Forms: DC Inst - Implanted Device
Changes to Home Medications: No
Discharge Medications:
DC Medications w/original date entered in [employer]
levalbuterol tartrate 45 mcg/actuation aerosol inhaler (Xopenex HFA) 2 inh inhalation R Q6HPRN PRN SOB 11/28/22
mometasone-formoterol HFA 100 mcg-5 mcg/actuation aerosol inhaler (Dulera) 2 puff inhalation R BID Lung/Breathing Issues 02/20/24
rosuvastatin 20 mg tablet 20 mg PO QPM High Cholesterol 02/20/24
sertraline 50 mg tablet 25 mg PO DAILY depression/anxiety 02/20/24
therapeutic multivitamin (Thera-Tabs tablet) 1 tab PO DAILY Supplement 02/20/24
cholecalciferol (vitamin D3) 25 mcg (1,000 unit) tablet (Vitamin D3) 25 mcg PO DAILY Supplement 03/24/24
omeprazole 20 mg tablet,delayed release 20 mg PO DAILY Gastrointestinal Issue 03/24/24
acetaminophen 325 mg tablet 650 mg (2 x 325 mg) PO Q4HPRN PRN mild pain/ fever>100.5F #0 tabs 03/25/24
diazepam 2 mg tablet 2 mg PO TIDPRN PRN intractable vertigo #15 tabs 03/25/24
meclizine 25 mg tablet 25 mg PO TIDPRN PRN dizziness #0 tabs 03/25/24
scopolamine base 1 mg over 3 days transdermal patch 1 patch transdermal Q72H #2 ea 03/25/24
methylprednisolone 4 mg tablets in a dose pack (Medrol (Shaan)) See Rx Instructions PO .COMPLEX #21 ea 05/01/24
methylprednisolone 4 mg tablets in a dose pack (Medrol (Shaan)) See Rx Instructions PO .COMPLEX #21 ea 05/02/24
trazodone 50 mg tablet 50 mg PO HS PRN insomnia 08/27/24
valsartan 160 mg tablet 160 mg PO DAILY 08/27/24
Home Medication Changes
Pending Results: No
Total time spent discharging patient (in min): 35
--- NOTE | 2024-08-28 09:03 | PTCARENOTE ---
assumed care of pt from previous shift RN, sinus rhythm on tele, + peripheral pulses, no edema. Lungs clear, pox 98% on RA. +bs, tolerating PO intake, voids spontaneously. Left CW PPM site w dressing intact. Plan of care reviewed w the pt and
questions encouraged.
--- NOTE | 2024-08-28 10:58 | PTCARENOTE ---
pressure dressing removed per Dr. Nevarez. Discharge pending.
[2024-08-28 12:00] VITALS: BP 123/75
--- NOTE | 2024-08-28 12:16 | PTCARENOTE ---
tele monitor and IV line discontinued. Discharge instructions, medication list and follow up appointments reviewed w the pt and her . Questions encouraged.
== END 2024-08-28 12:20 | disposition home or self-care (01) ==
LOC: CATH 08:13
PROVIDERS: Nurse Practitioner Adult Health; ATTENDING PHYSICIAN Internal Medicine Cardiovascular Disease; FAMILY PHYSICIAN Internal Medicine Geriatric Medicine
DX: I44.2 Atrioventricular block, complete (principal); E78.5 Hyperlipidemia, unspecified; T82.120A Displacement of cardiac electrode, initial encounter; Y83.1 Surgical operation with implant of artificial internal device as the cause of abnormal reaction of the patient, or of later complication, without mention of misadventure at the time of the procedure; F32.A Depression, unspecified; F41.9 Anxiety disorder, unspecified; I11.9 Hypertensive heart disease without heart failure; I49.3 Ventricular premature depolarization; J45.909 Unspecified asthma, uncomplicated; J98.4 Other disorders of lung; K21.9 Gastro-esophageal reflux disease without esophagitis; E05.90 Thyrotoxicosis, unspecified without thyrotoxic crisis or storm; Z91.041 Radiographic dye allergy status; Z88.5 Allergy status to narcotic agent; Z88.2 Allergy status to sulfonamides; Z88.1 Allergy status to other antibiotic agents; K58.9 Irritable bowel syndrome, unspecified
CPT/HCPCS: 33208; 33215; 71045; 80048; 83735; 85027; 93005; 94640; C1769; C1785; C1892; C1898

== ENCOUNTER → 2024-09-21 13:08 | Outpatient (REF) | payer MEDICARE, BC, SELFPAY ==
[2024-09-21 13:44] LABS: % Basophils 0.3 % (0-2); % Eosinophils 0.9 % (0-6); % Immature Granulocytes 0.5 % (0-0.5); % Lymphocytes 15.8 % (20.5-51.1); % Monocytes 4.9 % (1.7-9.3); % Neutrophils 77.6 % (42.2-75.2); Absolute Eosinophils 0.1 10^3/uL (0-0.7); Absolute Lymphocytes 1.2 10^3/uL (1.2-3.4); Absolute Monocytes 0.4 10^3/uL (0.1-0.6); Absolute Neutrophils 5.9 10^3/uL (1.4-6.5); Hematocrit 39.1 % (37.0-47.0); Hemoglobin 13.4 g/dL (12.0-16.0); Mean Corp Hgb Conc. 34.3 g/dL (33.0-37.0); Mean Corpuscular Hgb 29.1 pg (27.0-31.0); Mean Platelet Volume 10.1 fL (7.4-10.4); Nucleated Red Blood Cells % 0 %; Platelet Count 131 10^3/uL (130-400); Red Cell Dist. Width 13.1 % (11.5-14.5); White Blood Cell Count 7.6 10^3/uL (4.8-10.8)
[2024-09-21 14:02] LABS: ALT (SGPT) 16 U/L (0-35); AST (SGOT) 20 U/L (14-36); Albumin 4.4 g/dl (3.5-5.0); Alkaline Phosphatase 52 U/L (38-126); Blood Urea Nitrogen 15 mg/dl (7-17); Calcium 9.3 mg/dl (8.4-10.2); Carbon Dioxide 27 mmol/L (22-30); Chloride 109 mmol/L (98-107); Glucose 99 mg/dl (70-99); Potassium 4.6 mmol/L (3.5-5.1); Sodium 143 mmol/L (135-145); Total Bilirubin 1.1 mg/dl (0.2-1.3); Total Protein 6.6 g/dl (6.3-8.2); eGFR > 60.00
[2024-09-21 14:04] LABS: C-Reactive Protein < 5.00 mg/L (0.0-10.00)
[2024-09-21 14:18] LABS: Erythrocyte Sed Rate 10 mm/hour (0-20)
[2024-09-21 14:20] LABS: Free T4 1.66 ng/dl (0.78-2.19)
[2024-09-21 14:34] LABS: TSH 0.58 uIU/ml (0.47-4.68)
[2024-09-21 14:59] LABS: Free T3 3.08 pg/ml (2.77-5.27)
== END ==
LOC: REG 13:08
PROVIDERS: ATTENDING PHYSICIAN Internal Medicine Endocrinology, Diabetes & Metabolism; FAMILY PHYSICIAN Internal Medicine Geriatric Medicine
DX: J42 Unspecified chronic bronchitis (principal); M60.88 Other myositis, other site; F32.9 Major depressive disorder, single episode, unspecified; E78.2 Mixed hyperlipidemia; I10 Essential (primary) hypertension; K21.9 Gastro-esophageal reflux disease without esophagitis; F41.1 Generalized anxiety disorder; J45.30 Mild persistent asthma, uncomplicated; G47.09 Other insomnia; G31.84 Mild cognitive impairment of uncertain or unknown etiology; M50.30 Other cervical disc degeneration, unspecified cervical region; F33.41 Major depressive disorder, recurrent, in partial remission; E55.9 Vitamin D deficiency, unspecified; Z13.89 Encounter for screening for other disorder; E05.10 Thyrotoxicosis with toxic single thyroid nodule without thyrotoxic crisis or storm
CPT/HCPCS: 36415; 80053; 84439; 84443; 84481; 85025; 85652; 86140

== ENCOUNTER → 2024-10-08 14:35 | Outpatient (REF) | payer MEDICARE, BC, SELFPAY | LOC: RCS 14:35 | PROVIDERS: ATTENDING PHYSICIAN Nurse Practitioner; FAMILY PHYSICIAN Internal Medicine Geriatric Medicine | DX: I10 Essential (primary) hypertension (principal); R52 Pain, unspecified; R06.02 Shortness of breath; Z95.0 Presence of cardiac pacemaker | CPT/HCPCS: 93308; 71046; 93321; 93325 ==

== ENCOUNTER → 2024-10-14 14:01 | Outpatient (REF) | payer MEDICARE, BC, SELFPAY | LOC: RAD 14:01 | PROVIDERS: ATTENDING PHYSICIAN Obstetrics & Gynecology; FAMILY PHYSICIAN Internal Medicine Geriatric Medicine | DX: R10.32 Left lower quadrant pain (principal) | CPT/HCPCS: 76856 ==

== ENCOUNTER → 2024-10-25 17:39 | Outpatient (REF) | payer MEDICARE, BC, SELFPAY | LOC: WDC 17:39 | PROVIDERS: ATTENDING PHYSICIAN Obstetrics & Gynecology Gynecology; FAMILY PHYSICIAN Internal Medicine Geriatric Medicine | DX: Z12.31 Encounter for screening mammogram for malignant neoplasm of breast (principal) | CPT/HCPCS: 77063; 77067 ==

== ENCOUNTER → 2024-11-01 14:07 | Outpatient (REF) | payer MEDICARE, BC, SELFPAY | LOC: RAD 14:07 | PROVIDERS: ATTENDING PHYSICIAN Obstetrics & Gynecology Gynecology; FAMILY PHYSICIAN Internal Medicine Geriatric Medicine; OTHER PHYSICIAN Obstetrics & Gynecology | DX: M81.0 Age-related osteoporosis without current pathological fracture (principal) | CPT/HCPCS: 77080 ==

== ENCOUNTER → 2024-11-06 10:37 | Outpatient (REF) | payer MEDICARE, BC, SELFPAY | LOC: RAD 10:37 | PROVIDERS: ATTENDING PHYSICIAN Internal Medicine Critical Care Medicine; FAMILY PHYSICIAN Internal Medicine Geriatric Medicine | DX: R91.8 Other nonspecific abnormal finding of lung field (principal) | CPT/HCPCS: 71250 ==

== ENCOUNTER → 2024-12-07 11:22 | Outpatient (REF) | payer MEDICARE, BC, SELFPAY | LOC: RAD 11:22 | PROVIDERS: ATTENDING PHYSICIAN Internal Medicine Critical Care Medicine; FAMILY PHYSICIAN Internal Medicine Geriatric Medicine | DX: R94.2 Abnormal results of pulmonary function studies (principal); R91.1 Solitary pulmonary nodule | CPT/HCPCS: 71260; Q9967 ==

== ENCOUNTER → 2024-12-21 10:36 | Outpatient (REF) | payer MEDICARE, BC, SELFPAY ==
[2024-12-21 12:49] LABS: ALT (SGPT) 18 U/L (0-35); AST (SGOT) 22 U/L (14-36); Albumin 4.3 g/dl (3.5-5.0); Alkaline Phosphatase 63 U/L (38-126); Blood Urea Nitrogen 14 mg/dl (7-17); Calcium 9.0 mg/dl (8.4-10.2); Carbon Dioxide 29 mmol/L (22-30); Chloride 108 mmol/L (98-107); Glucose 80 mg/dl (70-99); Potassium 4.5 mmol/L (3.5-5.1); Sodium 141 mmol/L (135-145); Total Protein 6.4 g/dl (6.3-8.2); eGFR > 60.00
[2024-12-21 13:04] LABS: Free T3 3.77 pg/ml (2.77-5.27)
[2024-12-21 13:17] LABS: TSH 0.98 uIU/ml (0.47-4.68)
== END ==
LOC: REG 10:36
PROVIDERS: ATTENDING PHYSICIAN Internal Medicine Endocrinology, Diabetes & Metabolism; FAMILY PHYSICIAN Internal Medicine Geriatric Medicine
DX: E04.2 Nontoxic multinodular goiter (principal)
CPT/HCPCS: 36415; 80053; 84439; 84443; 84481

== ENCOUNTER → 2025-02-08 09:55 | Outpatient (REF) | payer MEDICARE, BC, SELFPAY | LOC: HWRAD 09:55 | PROVIDERS: ATTENDING PHYSICIAN Obstetrics & Gynecology; FAMILY PHYSICIAN Internal Medicine Geriatric Medicine | DX: M79.89 Other specified soft tissue disorders (principal) | CPT/HCPCS: 76705 ==

== ENCOUNTER → 2025-02-17 11:52 | Outpatient (REF) | payer MEDICARE, BC, SELFPAY ==
[2025-02-17 14:12] LABS: Hematocrit 42.7 % (37.0-47.0); Hemoglobin 14.3 g/dL (12.0-16.0); Mean Corp Hgb Conc. 33.5 g/dL (33.0-37.0); Mean Corpuscular Volume 87.0 fL (81.0-99.0); Nucleated Red Blood Cells % 0 %; Platelet Count 113 10^3/uL (130-400); Red Cell Dist. Width 12.1 % (11.5-14.5)
[2025-02-17 14:16] LABS: Blood Urea Nitrogen 14 mg/dl (7-17); Calcium 9.4 mg/dl (8.4-10.2); Carbon Dioxide 29 mmol/L (22-30); Chloride 104 mmol/L (98-107); Glucose 98 mg/dl (70-99); Potassium 4.2 mmol/L (3.5-5.1); Sodium 138 mmol/L (135-145); eGFR > 60.00
[2025-02-17 14:32] LABS: Vitamin D, 25-OH*** 52.7 ng/mL (30-80)
[2025-02-17 15:22] LABS: Vitamin B12 584 pg/ml (239-931)
== END ==
LOC: REG 11:52
PROVIDERS: ATTENDING PHYSICIAN Nurse Practitioner Adult Health; FAMILY PHYSICIAN Internal Medicine Geriatric Medicine
DX: I10 Essential (primary) hypertension (principal); F41.9 Anxiety disorder, unspecified; R53.83 Other fatigue; R42 Dizziness and giddiness; Z79.899 Other long term (current) drug therapy
CPT/HCPCS: 36415; 80048; 82306; 82607; 84443; 85025; 86038

== ENCOUNTER → 2025-02-23 14:43 | Outpatient (REF) | payer MEDICARE, BC, SELFPAY ==
[2025-02-23 15:23] LABS: Urine Character Slightly Cloudy (Clear)
[2025-02-23 15:36] LABS: Urine Urothelial Cell 0-2 /LPF (FEW)
[2025-02-23 15:38] LABS: Urine Red Blood Cell 0-2 /HPF (0-2)
[2025-02-23 15:39] LABS: Urine White Cell 30-40 /HPF (0-5)
== END ==
LOC: REG 14:43
PROVIDERS: ATTENDING PHYSICIAN Nurse Practitioner; FAMILY PHYSICIAN Internal Medicine Geriatric Medicine
DX: N39.0 Urinary tract infection, site not specified (principal)
CPT/HCPCS: 81003; 81015; 87086

== ENCOUNTER → 2025-03-14 15:51 | Outpatient (REF) | payer MEDICARE, BC, SELFPAY ==
[2025-03-14 16:45] LABS: ALT (SGPT) 24 U/L (0-35); AST (SGOT) 23 U/L (14-36); Albumin 4.8 g/dl (3.5-5.0); Alkaline Phosphatase 70 U/L (38-126); Blood Urea Nitrogen 17 mg/dl (7-17); Calcium 9.5 mg/dl (8.4-10.2); Carbon Dioxide 32 mmol/L (22-30); Chloride 103 mmol/L (98-107); Glucose 89 mg/dl (70-99); Potassium 4.1 mmol/L (3.5-5.1); Sodium 138 mmol/L (135-145); Total Protein 7.2 g/dl (6.3-8.2); eGFR > 60.00
[2025-03-14 17:01] LABS: Free T3 3.27 pg/ml (2.77-5.27)
[2025-03-14 17:14] LABS: TSH 1.43 uIU/ml (0.47-4.68)
== END ==
LOC: REG 15:51
PROVIDERS: ATTENDING PHYSICIAN Internal Medicine Endocrinology, Diabetes & Metabolism; FAMILY PHYSICIAN Internal Medicine Geriatric Medicine
DX: E04.2 Nontoxic multinodular goiter (principal)
CPT/HCPCS: 36415; 80053; 84439; 84443; 84481

== ENCOUNTER → 2025-03-21 09:27 | Outpatient (REF) | payer MEDICARE, BC, SELFPAY ==
[2025-03-21 11:32] LABS: Blood Urea Nitrogen 14 mg/dl (7-17); Calcium 9.6 mg/dl (8.4-10.2); Carbon Dioxide 31 mmol/L (22-30); Chloride 104 mmol/L (98-107); Glucose 96 mg/dl (70-99); Iron 90 ug/dl (37-170); Potassium 4.4 mmol/L (3.5-5.1); Sodium 140 mmol/L (135-145); eGFR > 60.00
[2025-03-21 12:13] LABS: Ferritin 98.4 ng/ml (11.1-264.0)
[2025-03-22 22:05] LABS: ANA, IgG Reflex to HEp-2 None Detected (None Detected)
== END ==
LOC: REG 09:27
PROVIDERS: ATTENDING PHYSICIAN Internal Medicine Cardiovascular Disease; FAMILY PHYSICIAN Nurse Practitioner Adult Health
DX: I10 Essential (primary) hypertension (principal); R53.83 Other fatigue; F41.9 Anxiety disorder, unspecified; R42 Dizziness and giddiness; R55 Syncope and collapse
CPT/HCPCS: 36415; 80048; 82728; 83540; 86038

== ENCOUNTER → 2025-04-01 11:06 | Outpatient (REF) | payer MEDICARE, BC, SELFPAY | LOC: RAD 11:06 | PROVIDERS: ATTENDING PHYSICIAN Internal Medicine Endocrinology, Diabetes & Metabolism; FAMILY PHYSICIAN Internal Medicine Geriatric Medicine | DX: E04.2 Nontoxic multinodular goiter (principal) | CPT/HCPCS: 76536 ==